=== PATIENT | female | born 1965 | race Caucasian/White ===

== ENCOUNTER → 2016-08-01 | Outpatient (CLI) | payer OTHER ==
[~2016-08-01] MED LIST: ALBUAER19 INH; AMPH20CA3 PO; AMPH20TA2 PO; ATV/2 PO; ATV1 PO; BSP15 PO; BUPR-267 PO; BUSP15TA70 PO; DOXY100C PO; EFFSR150 PO; EFFSR75 PO; FRCT/ PO; GABA1CAP PO; GABA1CAP4 PO; HYDR-5688 PO; IBUP-1459 PO; LEVO150T PO; LEVO175T3 PO; MELO15TA10 PO; MELO15TA4 PO; MONT1TAB3 PO; OMEP20CA9 PO; OMEP40CA41 PO; ONDA10SO PO; ONDA8TAB62 SL; OXYC1TAB3 PO; PRED20TA PO; PROM1SUP19 PR; SNG10 PO; VENL150C56 PO; VNTHFA/IN INH
--- NOTE | 2016-08-01 15:53 | DIAGNOSTIC IMAGING REPORT ---
CT SINUSES WITH BRAIN LAB CT DOSE: 730.34 mGy.cm CLINICAL HISTORY: CHRONIC SINUSITIS TECHNIQUE: Helical images were acquired in transverse plane. Coronal reformatted images were acquired. COMPARISON STUDY: 08/11/2015 FINDINGS: No orbital masses are visualized. There is no hydrocephalus. There is an 11 mm dural based calcification at the level the left posterior frontal lobe. There is progressive marked mucosal thickening involving the maxilla sinuses. There is extensive mucosal disease within the sphenoid sinus. The ethmoid cells are nearly completely opacified. There is partial opacification the frontal sinuses. The mastoid air cells appear clear. The ostiomeatal units are completely occluded bilaterally. IMPRESSION: Progressive pansinus disease. Occlusion of both ostiomeatal units. Electronically signed by: Carlos A Burns M.D. 08/01/2016 3:51 PM
== END | disposition home or self-care (01) ==
LOC: C.CTS 15:39
PROVIDERS: ATTEND Otolaryngology
DX: J32.9 Chronic sinusitis, unspecified (principal)

== ENCOUNTER 2016-08-11 19:38 | Emergency (ER) | payer OTHER ==
[~2016-08-11] VITALS: Ht 165.1 cm; Wt 73.9 kg
[~2016-08-11 19:38] MED LIST changes: -AMPH20TA2 PO; -ATV1 PO; -BSP15 PO; -DOXY100C PO; -EFFSR150 PO; -EFFSR75 PO; -FRCT/ PO; -GABA1CAP4 PO; -HYDR-5688 PO; -LEVO175T3 PO; -MELO15TA4 PO; -OMEP40CA41 PO; -ONDA10SO PO; -ONDA8TAB62 SL; -OXYC1TAB3 PO; -PRED20TA PO; -PROM1SUP19 PR; -SNG10 PO; -VNTHFA/IN INH
[2016-08-11 19:55] VITALS: TEMP 37.2; Ht 165.1 cm; Wt 73.9 kg
[2016-08-11] MEDS ORDERED: ALBUTEROL 0.083% NEBU SOLN 3 ML VIAL INH STA (20:51)
[2016-08-11] MEDS ORDERED: METHYLPREDNISOLONE 125 MG VIAL IV STA (20:51)
[2016-08-11] MEDS ORDERED: SODIUM CHLORIDE 0.9% 1000ML 1,000 ML IV STA (21:13)
[2016-08-11] MEDS ORDERED: KETOROLAC TROMETHAMINE 30 MG/ML VIAL IV STA (21:13)
[2016-08-11 21:15] LABS: BASO % 1.5 %; BASO ABS # 0.14 K/uL (0-0.2); COMPLETE YES; EOS % 7.3 %; HEMATOCRIT 43.4 % (37-47); IG% 0.2 %; LYMPH % 24.3 %; LYMPH ABS # 2.31 K/uL (1.2-3.4); MEAN CORPUSCULAR HEMOGLOBIN 30.2 pg (25-34); MEAN CORPUSCULAR HGB CONC 34.3 g/dl (32-36); MEAN PLATELET VOLUME 8.9 fL (7.4-10.4); MONO % 6.9 %; NEUT % 59.8 %; PLATELET COUNT 348 K/uL (130-400); RED BLOOD COUNT 4.93 M/uL (4.2-5.4); WHITE BLOOD COUNT 9.51 K/uL (4.8-10.8)
--- NOTE | 2016-08-11 21:21 | DIAGNOSTIC IMAGING REPORT ---
CHEST ONE VIEW PORTABLE CLINICAL HISTORY: Respiratory distress. Dyspnea. COMPARISON STUDY: 10/12/2015 FINDINGS: The heart is the upper limits of normal in size. There is evidence for aortic tortuosity/ectasia with a prominent ascending aortic shadow, unchanged from prior studies. There is no focal pulmonary consolidation. There is no failure. There are no pleural effusions.[ IMPRESSION: No significant change from the preceding study. No active disease in the chest. Electronically signed by: Carlos A Burns M.D. 08/11/2016 9:19 PM Dictated Date/Time: 08/11/2016 9:18 PM
[2016-08-11 21:31] VITALS: O2SAT 98
[2016-08-11 21:32] LABS: ALT/SGPT 29 U/L (12-78); BLOOD UREA NITROGEN 18 mg/dl (7-18); BUN/CREATININE RATIO 18.7 (10-20); CALCIUM 9.8 mg/dl (8.5-10.1); CARBON DIOXIDE 27 mmol/L (21-32); CHLORIDE 106 mmol/L (98-107); CREATININE 0.98 mg/dl (0.60-1.20); GLUCOSE 95 mg/dl (70-99); POTASSIUM 3.3 mmol/L (3.5-5.1); SODIUM 141 mmol/L (136-145)
[2016-08-11 21:37] LABS: ALB/GLOB RATIO 1.2 (0.9-2); ALKALINE PHOSPHATASE 65 U/L (45-117); AST/SGOT 25 U/L (15-37)
[2016-08-11 21:44] LABS: PREG INTERNAL NEGATIVE QC NEG CLEAR BACKGROUND; PREG INTERNAL POSITIVE QC POS CONTROL LINE
[2016-08-11] MEDS ORDERED: HYDROmorphone INJ 0.5 MG/0.5 ML SYR IV STA (21:57)
[2016-08-11 23:59] VITALS: BP 122/74; PULSE 62; O2SAT 100
--- NOTE | 2016-08-12 01:30 | EMERGENCY ROOM VISIT NOTE ---
History Report prepared by Jack: Celina Diaz Under the Supervision of: Dr. Phillip Charles D.O. First contact with patient: 20:34 Chief Complaint: RESPIRATORY PROBLEMS Stated Complaint: TROUBLE BREATHING,SHARP PAIN DEEP IN BTW SHOULDERS Nursing Triage Summary: Pt reports she is here due to increased fatigue and "deep back pain". "Today when I coughed I had a really sharp pain in my back that migrated to front, and everytime I take a deep breath I have that sharp pain again. I also have had a constant headache for two weeks. And there is a lot of pressure in my ears." Pt also reports neck pain. Scheduled to have surgery with Dr. Kang August 25. History of Present Illness The patient is a 50 year old female who presents to the Emergency Room with complaints of worsening respiratory problems for the past couple of days. She has had a productive cough with thick yellow sputum for the past month. She denies any worsening cough but states that 4 days ago she started experiencing sharp pain between her shoulder blades. This evening she coughed and since then has been having the sharp pain every time that she breathes. This pain radiates around into the right side of her chest. She rates her pain as an 8/10. Her chest pain has been constant for the past 2 hours. The patient reports increased shortness of breath. She has a history of asthma and states that her rescue inhaler has not been helping. She also notes a waxing and waning headache for the past month. She follows with Dr. Kang for her sinus problems. Three weeks ago she had a CT that revealed polyps in her sinuses and eustachian tube infections. She was given eardrops and antibiotics, which she finished 2 weeks ago. Pt denies change in vision, fevers, nausea, vomiting, diarrhea, pain with urination, melena, and pain or swelling in her legs. She denies any recent surgeries. She denies any personal history of cancer or blood clots. Source of History: patient Onset: a couple of days ago Position: chest (respiratory) Symptom Intensity: 8/10 Quality: sharp Timing: worsening Modifying Factors (Worsening): breathing, other (coughing) Associated Symptoms: + SOB, + back pain, + chest pain, + cough, + headache, No diarrhea, No fevers, No melena, No nausea, No urinary symptoms, No vomiting Review of Systems See HPI for pertinent positives & negatives. A total of 10 systems reviewed and were otherwise negative. Past Medical & Surgical Medical Problems: (1) ADHD (attention deficit hyperactivity disorder) (2) Anxiety (3) Asthma, intermittent (4) Chronic sinusitis (5) Depression (6) GERD (gastroesophageal reflux disease) (7) Hypothyroidism (8) ITP (idiopathic thrombocytopenic purpura) (9) Migraine (10) Seizure disorder, simple partial Surgical Problems: (1) History of back surgery (2) S/P sinus surgery (3) S/P tonsillectomy and adenoidectomy Family History Hypertension Social History Smoking Status: Former Smoker Alcohol Use: none Drug Use: none Marital Status: single, Housing Status: lives with family Occupation Status: employed Current/Historical Medications Scheduled Amphetamine-Dextroamphetamine 20MG (Adderall Xr 20MG), 20 MG PO BID Bupropion Hcl (Bupropion Hcl Er), 150 MG PO BID Buspirone Hcl (Buspar), 15 MG PO BID Levothyroxine Sodium (Synthroid), 150 MCG PO QAM Montelukast Sodium (Singulair), 10 MG PO QAM Venlafaxine Hcl (Effexor Extended Rel), 150 MG PO QAM Scheduled PRN Acetamin/Butalbital/Caffeine (Fioricet), 1-2 TAB PO UD PRN for Headache Albuterol Inhaler (Ventolin Inhaler), 2 PUFFS INH Q4H PRN for SOB/Wheezing Gabapentin (Neurontin), 100 MG PO TID PRN for back pain Ibuprofen (Motrin), 400 MG PO Q6H PRN for Pain Lorazepam (Ativan), 2 MG PO HS PRN for Sleep Meloxicam (Mobic), 15 MG PO DAILY PRN for Pain Omeprazole (Prilosec), 20 MG PO DAILY PRN for PRN Allergies Coded Allergies: Latex1 -Allergic Contact Dermititis (Verified Allergy, Unknown, 10/12/15) Ciprofloxacin (Verified Adverse Reaction, Unknown, N/V, DIZZINESS, 10/12/15 ) Morphine (Verified Adverse Reaction, Unknown, HEADACHES, 10/12/15) Oxycodone (Verified Adverse Reaction, Unknown, nausea and vomiting, ) Sulfamethoxazole w/Trimethoprim (Verified Adverse Reaction, Unknown, N/V, DIZZINESS, 10/12/15) Physical Exam Vital Signs Date Time Temp Pulse Resp B/P Pulse Ox O2 Delivery O2 Flow Rate FiO2 08/11/16 23:59 62 16 122/74 100 Room Air 08/11/16 22:07 65 16 113/72 100 Room Air 08/11/16 21:44 63 08/11/16 21:31 98 Room Air 08/11/16 20:25 100 Room Air 08/11/16 19:55 37.2 82 20 150/103 96 Room Air Physical Exam GENERAL: alert, sitting up in bed, well appearing, well nourished, no acute distress, non-toxic EYE EXAM: normal conjunctiva, PERRL and EOM's intact OROPHARYNX: no exudate, no erythema, lips, buccal mucosa, and tongue normal and mucous membranes are moist NECK: supple, acute reproducible tenderness in the bilateral cervical perispinal region, no nuchal rigidity, no adenopathy, negative Brudzinski's. LUNGS: Clear to auscultation. Normal chest wall mechanics HEART: no murmurs, S1 normal and S2 normal CHEST: No reproducible anterior chest wall tenderness. ABDOMEN: abdomen soft, non-tender, normo-active bowel sounds, no masses, no rebound or guarding. BACK: Back is symmetrical on inspection and there is no deformity, no midline tenderness, no CVA tenderness. SKIN: no rashes and no bruising UPPER EXTREMITIES: upper extremities are grossly normal. LOWER EXTREMITIES: No pitting edema. NEURO EXAM: Normal sensorium, cranial nerves II-XII intact, normal speech, no weakness of arms, no weakness of legs. No drift. Finger to nose intact. Gross sensation intact. Rapid alternating movements of the upper extremities are intact. Medical Decision & Procedures ER Provider Diagnostic Interpretation: Radiology results as stated below per my review and radiologist interpretation: CHEST ONE VIEW PORTABLE CLINICAL HISTORY: Respiratory distress. Dyspnea. COMPARISON STUDY: 10/12/2015 FINDINGS: The heart is the upper limits of normal in size. There is evidence for aortic tortuosity/ectasia with a prominent ascending aortic shadow, unchanged from prior studies. There is no focal pulmonary consolidation. There is no failure. There are no pleural effusions.[ IMPRESSION: No significant change from the preceding study. No active disease in the chest. Electronically signed by: Carlos A Burns M.D. 08/11/2016 9:19 PM Dictated Date/Time: 08/11/2016 9:18 PM Laboratory Results 08/11/16 21:00 Red Blood Count 4.93, Mean Corpuscular Volume 88.0, Mean Corpuscular Hemoglobin 30.2, Mean Corpuscular Hemoglobin Concent 34.3, Mean Platelet Volume 8.9, Neutrophils (%) (Auto) 59.8, Lymphocytes (%) (Auto) 24.3, Monocytes (%) (Auto) 6.9, Eosinophils (%) (Auto) 7.3, Basophils (%) (Auto) 1.5, Neutrophils # (Auto) 5.69, Lymphocytes # (Auto) 2.31, Monocytes # (Auto) 0.66, Eosinophils # (Auto) 0.69, Basophils # (Auto) 0.14 08/11/16 21:00 Test 08/11/16 21:00 08/11/16 21:17 08/11/16 22:53 White Blood Count 9.51 K/uL (4.8-10.8) Red Blood Count 4.93 M/uL (4.2-5.4) Hemoglobin 14.9 g/dL (12.0-16.0) Hematocrit 43.4 % (37-47) Mean Corpuscular Volume 88.0 fL (80-100) Mean Corpuscular Hemoglobin 30.2 pg (25-34) Mean Corpuscular Hemoglobin Concent 34.3 g/dl (32-36) Platelet Count 348 K/uL (130-400) Mean Platelet Volume 8.9 fL (7.4-10.4) Neutrophils (%) (Auto) 59.8 % Lymphocytes (%) (Auto) 24.3 % Monocytes (%) (Auto) 6.9 % Eosinophils (%) (Auto) 7.3 % Basophils (%) (Auto) 1.5 % Neutrophils # (Auto) 5.69 K/uL (1.4-6.5) Lymphocytes # (Auto) 2.31 K/uL (1.2-3.4) Monocytes # (Auto) 0.66 K/uL (0.11-0.59) Eosinophils # (Auto) 0.69 K/uL (0-0.5) Basophils # (Auto) 0.14 K/uL (0-0.2) RDW Standard Deviation 45.0 fL (36.4-46.3) RDW Coefficient of Variation 13.8 % (11.5-14.5) Immature Granulocyte % (Auto) 0.2 % Immature Granulocyte # (Auto) 0.02 K/uL (0.00-0.02) Prothrombin Time 11.0 SECONDS (9.0-12.0) Prothromb Time International Ratio 1.0 (0.9-1.1) Activated Partial Thromboplast Time 26.4 SECONDS (21.0-31.0) Partial Thromboplastin Ratio 1.0 D-Dimer < 190 ug/L FEU (0-500) Anion Gap 8.0 mmol/L (3-11) Est Creatinine Clear Calc Drug Dose 69.9 ml/min Estimated GFR () 78.5 Estimated GFR (Non- 67.7 BUN/Creatinine Ratio 18.7 (10-20) Calcium Level 9.8 mg/dl (8.5-10.1) Total Bilirubin 0.2 mg/dl (0.2-1) Aspartate Amino Transf (AST/SGOT) 25 U/L (15-37) Alanine Aminotransferase (ALT/SGPT) 29 U/L (12-78) Alkaline Phosphatase 65 U/L (45-117) Total Protein 7.1 gm/dl (6.4-8.2) Albumin 3.8 gm/dl (3.4-5.0) Globulin 3.3 gm/dl (2.5-4.0) Albumin/Globulin Ratio 1.2 (0.9-2) Human Chorionic Gonadotropin, Qual NEG (NEG) Influenza Type A Antigen Neg for Influ A (NEG) Influenza Type B Antigen Neg for Influ B (NEG) Troponin I < 0.015 ng/ml (0-0.045) Laboratory results per my review. Medications Administered Medications (Trade) Dose Ordered Sig/Jamarcus Route Start Time Stop Time Status Last Admin Dose Admin Albuterol Sulfate (Ventolin 0.083% 2.5MG/3ML [facility]) 2.5 mg NOW STAT INH 08/11/16 20:51 08/11/16 20:52 DC 08/11/16 21:20 2.5 MG Methylprednisolone Sodium Succinate (Solu-Medrol IV) 125 mg NOW STAT IV 08/11/16 20:51 08/11/16 20:52 DC 08/11/16 21:20 125 MG Ketorolac Tromethamine 30 mg 30 mg NOW STAT IV 08/11/16 21:13 08/11/16 21:14 DC 08/11/16 21:29 30 MG Sodium Chloride (Nss 1000ml) 1,000 ml @ 999 mls/hr Q1H1M STAT IV 08/11/16 21:13 08/11/16 22:13 DC 08/11/16 21:21 999 MLS/HR Hydromorphone HCl (Dilaudid Inj) 0.5 mg NOW STAT IV 08/11/16 21:57 08/11/16 22:00 DC 08/11/16 22:07 0.5 MG ECG Indication: chest pain Rate (beats per minute): 72 Rhythm: normal sinus Findings: left axis deviation, no ectopy ED Course ED COURSE: Vital signs were reviewed and showed normal vitals. The patients medical record was reviewed The above diagnostic studies were performed and reviewed. ED treatments and interventions as stated above. 2033: The patient was evaluated in room B8. A complete history and physical examination was performed. 2050: Solu-Medrol 125 mg IV, Albuterol sulfate 2.5 mg INH 3: NSS 1000 ml @ 999 mls/hr IV, Toradol 30 mg IV 7: Dilaudid 0.5 mg IV 5: I updated the patient on her results. 0: Upon reevaluation, the patient is feeling better and resting comfortably. I discussed my findings with the patient and she understands and agrees with the treatment plan. Based on the patients age, coexisting illnesses, exam and lab findings the decision to treat as an outpatient was made. The patient remained stable while under my care. The patient appeared well at the time of discharge. Medical Decision Differential diagnoses includes but is not limited to pneumonia, bronchitis, COPD/Asthma exacerbation, pneumothorax, pulmonary embolism, congestive heart failure, acute coronary syndrome. Patient is a 50-year-old female who presents the ER for right sided chest pain which is pleuritic in nature. She does not shortness of breath with it has a history of asthma. She is a low risk for PEs. Chest x-ray was unremarkable. D -dimer was negative. Troponin was negative 2. EKG was nondiagnostic. She is currently being treated for sinusitis with Dr. Kang. I do favor her headaches which have been waxing and waning for the past month are likely secondary to her sinus issues. I recommend following up with her ENT doctor tomorrow. I do not feel comfortable prescribing any additional antibiotics as this appears to be a chronic issue as don't want to cause any infectious diarrhea with antibiotics. She is completely neurologically intact. She declined CT of her head. She is discharged following IV Dilaudid and Toradol the follow-up with her primary care doctor. Discussed with Pt concerning signs and symptoms to watch out for. Pt was instructed to follow up with their PCP and discussed with the patient their option to return to the ED at anytime for persistent or worsening symptoms. The appropriate anticipatory guidance and out-patient management, including indications for return to the emergency department, were explained at length to the patient and understood. Impression Primary Impression: Chest pain Additional Impressions: Headache Hypokalemia Scribe Attestation The scribe's documentation has been prepared under my direction and personally reviewed by me in its entirety. I confirm that the note above accurately reflects all work, treatment, procedures, and medical decision making performed by me. Departure Information Dispostion Home / Self-Care Referrals No Doctor, Assigned (PCP) Eugene Dallas D.O. Forms HOME CARE DOCUMENTATION FORM, IMPORTANT VISIT INFORMATION, WORK / SCHOOL INSTRUCTIONS Patient Instructions ED Cephalgia Unspecified, My [facility] Additional Instructions Please follow up with your primary care doctor with in the next 24 hours. Any worsening of your symptoms, please return to the ED immediately. This includes exertional chest pain, chest pain when you're walking, shortness of breath, passing out, or any other concerning signs or symptoms from your stand point. Please take Motrin or Tylenol as needed for pain. Please do not drive, work, operate heavy machinery or drink Call for the next 12 hours. Problem Qualifiers Primary Impression: Chest pain Chest pain type: precordial chest pain Qualified Codes: R07.2 - Precordial pain Additional Impressions: Headache Headache type: unspecified
[2016-08-19] MEDS ORDERED: FRCT/ PO (13:03)
[2016-08-25] MEDS ORDERED: OXYC1TAB3 PO ×2 (09:00)
[2016-08-25] MEDS ORDERED: ONDA8TAB62 SL (10:54)
[2016-08-25] MEDS ORDERED: ONDA10SO PO (10:54)
== END 2016-08-11 23:58 | disposition home or self-care (01) ==
LOC: C.EDB 19:40
DX: R07.9 Chest pain, unspecified (principal); R51 Headache; E87.6 Hypokalemia; E03.9 Hypothyroidism, unspecified; F41.9 Anxiety disorder, unspecified; F90.9 Attention-deficit hyperactivity disorder, unspecified type; K21.9 Gastro-esophageal reflux disease without esophagitis; J45.909 Unspecified asthma, uncomplicated; G40.909 Epilepsy, unspecified, not intractable, without status epilepticus; Z98.890 Other specified postprocedural states; Z87.891 Personal history of nicotine dependence; Z79.899 Other long term (current) drug therapy; Z88.2 Allergy status to sulfonamides; Z88.5 Allergy status to narcotic agent; Z91.040 Latex allergy status; Z82.49 Family history of ischemic heart disease and other diseases of the circulatory system

== ENCOUNTER 2016-08-19 16:03 | Emergency (ER) | payer OTHER ==
[~2016-08-19] VITALS: Ht 165.1 cm; Wt 74.0 kg
[~2016-08-19 16:03] MED LIST changes: +FRCT/ PO
[2016-08-19 16:14] VITALS: Ht 165.1 cm; Wt 74.0 kg
[2016-08-19] MEDS ORDERED: ONDANSETRON INJ 2 MG/ML 2 ML VIAL IV STA (16:20)
[2016-08-19] MEDS ORDERED: CEFTRIAXONE SOD INJ 1 GM ADDVIAL IV STA (16:20)
[2016-08-19] MEDS ORDERED: DEXAMETHASONE SOD INJ 4 MG/ML VIAL IV STA (16:20)
[2016-08-19] MEDS ORDERED: SODIUM CHLORIDE 0.9% 1000ML 500 ML IV STA (16:20)
[2016-08-19] MEDS ORDERED: ALBUT/IPRATROP 3MG/0.5MG NEB 3 ML VIAL INH STA (16:20)
[2016-08-19] MEDS ORDERED: HYDROmorphone INJ 2 MG/ML SYR/VIAL IV PRN (16:30)
[2016-08-19] MEDS ORDERED: HYDROmorphone INJ 1 MG/ML SYR ONE (16:32)
--- NOTE | 2016-08-19 16:39 | EMERGENCY ROOM VISIT NOTE ---
History Report prepared by Jack: Vidya Sebastian Under the Supervision of: Dr. Nestor Wynne M.D. First contact with patient: 16:16 Chief Complaint: RESPIRATORY PROBLEMS Stated Complaint: SEVERE DIFFICULTY BREATHING, SEVERE PAIN IN CHEST History of Present Illness The patient is a 50 year old female who presents to the Emergency Room with complaints of worsening shortness of breath beginning 8 days prior to arrival. She states that she is experiencing right sided chest pain that she describes as a stabbing sensation. She notes that movement and coughing worsens the shortness of breath and pain. She notes yellow sputum with her cough. Patient states that she was in the ED 8 days ago for the same symptoms. She has been using her inhaler and nebulizer. The patient has a history of sinus surgeries and has one scheduled at the end of this month. The patient has a history of asthma. 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 Review of Systems See HPI for pertinent positives & negatives. A total of 10 systems reviewed and were otherwise negative. Past Medical & Surgical Medical Problems: (1) ADHD (attention deficit hyperactivity disorder) (2) Anxiety (3) Asthma, intermittent (4) Chronic sinusitis (5) Depression (6) GERD (gastroesophageal reflux disease) (7) Hypothyroidism (8) ITP (idiopathic thrombocytopenic purpura) (9) Migraine (10) Seizure disorder, simple partial Surgical Problems: (1) History of back surgery (2) S/P sinus surgery (3) S/P tonsillectomy and adenoidectomy Family History Hypertension Social History Smoking Status: Never Smoker Alcohol Use: none Drug Use: none Marital Status: single, Housing Status: lives with family Occupation Status: employed Current/Historical Medications Scheduled Amphetamine-Dextroamphetamine 20MG (Adderall 20MG), 20 MG PO BID Buspirone HCl (Buspirone HCl), 15 MG PO BID Doxycycline Hyclate (Vibramycin), 100 MG PO BID Levothyroxine Sodium (Levothyroxine Sodium), 175 MCG PO QAM Montelukast Sod (Montelukast Sodium), 10 MG PO HS Omeprazole (Prilosec), 40 MG PO BID Prednisone (Prednisone), 0 PO DAILY Venlafaxine Hcl (Effexor Extended Rel), 75 MG PO DAILY Venlafaxine Hcl (Effexor Extended Rel), 150 MG PO DAILY Scheduled PRN Acetamin/Butalbital/Caffeine (Fioricet), 1 TAB PO QID PRN for Headache Albuterol Hfa (Ventolin Hfa), 2 PUFFS INH Q6H PRN for Wheezing Gabapentin (Gabapentin), 300 MG PO TID PRN for Back Pain Hydrocodone/Acetaminophen 5MG/325MG ([place]anger 5MG/325MG), 1-2 TABLET PO Q4 PRN for Pain Lorazepam (Lorazepam), 1 MG PO BID PRN for Anxiety Meloxicam (Meloxicam), 15 MG PO DAILY PRN for Pain Promethazine (Phenergan Suppository), 25 MG [place] Q6H PRN for Migraine Allergies Coded Allergies: Latex1 -Allergic Contact Dermititis (Verified Allergy, Unknown, 10/12/15) Ciprofloxacin (Verified Adverse Reaction, Unknown, N/V, DIZZINESS, 10/12/15 ) Morphine (Verified Adverse Reaction, Unknown, HEADACHES, 10/12/15) Oxycodone (Verified Adverse Reaction, Unknown, nausea and vomiting, ) Sulfamethoxazole w/Trimethoprim (Verified Adverse Reaction, Unknown, N/V, DIZZINESS, 10/12/15) Physical Exam Vital Signs Date Time Temp Pulse Resp B/P Pulse Ox O2 Delivery O2 Flow Rate FiO2 08/19/16 19:19 37.0 80 18 131/86 97 08/19/16 19:08 80 18 131/86 97 Room Air 08/19/16 16:55 96 Room Air 08/19/16 16:14 37.0 105 18 124/84 96 Room Air Physical Exam GENERAL: Patient is in no acute distress. HEENT: No acute trauma, normocephalic atraumatic, mucous membranes moist, no nasal congestion, no scleral icterus. NECK: No stridor, no adenopathy, no meningismus, trachea is midline. LUNGS: Seems short of breath when speaking. Wheezing bilaterally, breath sounds equal bilaterally, breath sounds diminished bilaterally. HEART: Without murmurs gallops or rubs, regular rate and rhythm. CHEST: Tender to right anterior and lateral chest wall. No rash. ABDOMEN: Soft, nontender, bowel sounds positive, no hernias, no peritonitis. EXTREMITIES: No cyanosis or edema, full range of motion of all the joints without pain or difficulty, no signs for acute trauma. NEUROLOGIC: Oriented x 3, no acute motor or sensory deficits, no focal weakness. SKIN: No rash, no jaundice, no diaphoresis. Medical Decision & Procedures ER Provider Diagnostic Interpretation: CT results as stated below per my review and radiologist interpretation: CT ANGIOGRAM OF THE CHEST CLINICAL HISTORY: Atypical chest pain COMPARISON STUDY: Chest x-ray dated 08/11/2016 TECHNIQUE: Following the IV administration of 90 mL of Optiray-320, CT angiogram of the thorax was performed from the thoracic inlet to the lung bases utilizing the pulmonary embolus protocol. Images are reviewed in the axial, sagittal, and coronal planes. IV contrast was administered without complication. MIP imaging was performed. CT DOSE: 273.12 mGy.cm FINDINGS: No pathologically enlarged axillary mediastinal or hilar lymph nodes were visualized. There is mild dilatation of the ascending thoracic aorta which measures 42 mm in diameter. There are no intimal flaps to indicate aortic dissection. There were no pulmonary artery filling defects to indicate acute pulmonary embolism. No pleural effusions are visualized. There is mild bronchial wall thickening, and there is scattered bilateral mucous plugs. Clinical correlation regards to a bronchitis is recommended. IMPRESSION: 1. No CT evidence of acute pulmonary embolism 2. Mild dilatation of the ascending thoracic aorta, which measures 42 mm in diameter. There are no intimal flaps to indicate aortic dissection 3. Bronchial wall thickening and scattered mucous plugs Electronically signed by: Carlos A Burns M.D. 08/19/2016 6:49 PM Dictated Date/Time: 08/19/2016 6:45 PM Laboratory Results 08/19/16 16:58 Red Blood Count 5.22, Mean Corpuscular Volume 88.5, Mean Corpuscular Hemoglobin 30.7, Mean Corpuscular Hemoglobin Concent 34.6, Mean Platelet Volume 9.2, Neutrophils (%) (Auto) 52.0, Lymphocytes (%) (Auto) 24.8, Monocytes (%) (Auto) 7.9, Eosinophils (%) (Auto) 13.1, Basophils (%) (Auto) 1.9, Neutrophils # (Auto ) 4.62, Lymphocytes # (Auto) 2.20, Monocytes # (Auto) 0.70, Eosinophils # (Auto ) 1.16, Basophils # (Auto) 0.17 08/19/16 16:58 Test 08/19/16 16:58 08/19/16 17:00 White Blood Count 8.88 K/uL (4.8-10.8) Red Blood Count 5.22 M/uL (4.2-5.4) Hemoglobin 16.0 g/dL (12.0-16.0) Hematocrit 46.2 % (37-47) Mean Corpuscular Volume 88.5 fL (80-100) Mean Corpuscular Hemoglobin 30.7 pg (25-34) Mean Corpuscular Hemoglobin Concent 34.6 g/dl (32-36) Platelet Count 316 K/uL (130-400) Mean Platelet Volume 9.2 fL (7.4-10.4) Neutrophils (%) (Auto) 52.0 % Lymphocytes (%) (Auto) 24.8 % Monocytes (%) (Auto) 7.9 % Eosinophils (%) (Auto) 13.1 % Basophils (%) (Auto) 1.9 % Neutrophils # (Auto) 4.62 K/uL (1.4-6.5) Lymphocytes # (Auto) 2.20 K/uL (1.2-3.4) Monocytes # (Auto) 0.70 K/uL (0.11-0.59) Eosinophils # (Auto) 1.16 K/uL (0-0.5) Basophils # (Auto) 0.17 K/uL (0-0.2) RDW Standard Deviation 45.1 fL (36.4-46.3) RDW Coefficient of Variation 13.8 % (11.5-14.5) Immature Granulocyte % (Auto) 0.3 % Immature Granulocyte # (Auto) 0.03 K/uL (0.00-0.02) Anion Gap 10.0 mmol/L (3-11) Est Creatinine Clear Calc Drug Dose 69.9 ml/min Estimated GFR () 78.5 Estimated GFR (Non- 67.7 BUN/Creatinine Ratio 19.3 (10-20) Calcium Level 10.1 mg/dl (8.5-10.1) Troponin I < 0.015 ng/ml (0-0.045) Influenza Type A (RT-PCR) Neg for Influ A (NEG) Influenza Type B (RT-PCR) Neg for Influ B (NEG) Laboratory results reviewed by me. Medications Administered Medications (Trade) Dose Ordered Sig/Jamarcus Route Start Time Stop Time Status Last Admin Dose Admin Sodium Chloride (Nss 1000ml) 500 ml @ 999 mls/hr Q31M STAT IV 08/19/16 16:20 08/19/16 16:50 DC 08/19/16 16:54 999 MLS/HR Ondansetron HCl (Zofran Inj) 4 mg NOW STAT IV 08/19/16 16:20 08/19/16 16:27 DC 08/19/16 16:53 4 MG Dexamethasone Sodium Phosphate (Decadron Inj) 10 mg NOW STAT IV 08/19/16 16:20 08/19/16 16:27 DC 08/19/16 16:54 10 MG Albuterol/ Ipratropium (Duoneb) 3 ml NOW STAT INH 08/19/16 16:20 08/19/16 16:27 DC 08/19/16 16:54 3 ML Ceftriaxone Sodium (Rocephin Inj) 1 gm NOW STAT IV 08/19/16 16:20 08/19/16 16:27 DC 08/19/16 16:55 1 GM Hydromorphone HCl (Dilaudid Inj) 1 mg STK-MED ONCE .ROUTE 08/19/16 16:32 08/19/16 16:33 DC 08/19/16 16:53 1 MG ECG Indication: SOB/dyspnea Rate (beats per minute): 73 Rhythm: normal sinus Findings: no acute ischemic change, no ectopy, other (non specific T wave changes) ED Course 161: The patient was evaluated in room A4. A complete history and physical exam was performed. 1620: Rocephin Inj 1 gm IV, Duoneb 3 ml INH, Decadron Inj 10 mg IV, Zofran Inj 4 mg IV, Sodium Chloride 500 ml @ 999 mls/hr IV. 1630: Dilaudid Inj 1 mg IV. 1855: I reevaluated the patient. She is feeling much better and her breathing has improved. 1903: Reevaluated the patient. Discussed results and discharge instructions: She verbalized understanding and agreement. The patient is ready for discharge. Medical Decision The patient is a 50 year old female who presents to the ED with complaints of shortness of breath. Differential diagnoses considered include bronchitis, pneumonia, CHF, PE, rib fracture, musculoskeletal pain, exacerbation of asthma, influenza. There is no leukocytosis or concerning anemia. No significant electrolyte abnormality, no kidney failure. EKG shows a sinus rhythm, no acute ischemia, nonspecific T wave changes were noted. Cardiac enzyme testing times one is not suggestive of acute cardiac injury. Blood cultures are pending, influenza testing is pending. Chest CT shows some mucous plugs and what seems to be bronchitis, there was no pneumonia, no CHF and no evidence for PE. The patient presents with shortness of breath which has worsened even since her last ER visit. She did receive IV Decadron, IV ceftriaxone, IV saline. She was given a DuoNeb. She received IV Dilaudid for pain. She received IV Zofran for nausea. The patient feels markedly better, her lungs are much more clear. She is not hypoxic or toxic. I talked to her about admission versus discharge, she does want to go home. The patient is being discharged on doxycycline. I do think antibiotics are indicated given the length of her illness and her underlying asthma. She will be on a prednisone taper, Granger for pain. She will be using her nebulizer or inhaler every 4 hours. If she continues to feel worse and is not improving, she will return for reassessment. She appears to have acute bronchitis with an exacerbation of asthma. The chest pain seems musculoskeletal, it is reproducible on exam. [place] Drug Monitoring Program Search Results: patient reviewed within database, no issues identified Impression Primary Impression: Acute bronchitis Additional Impressions: Right-sided chest pain Exacerbation of asthma Scribe Attestation The scribe's documentation has been prepared under my direction and personally reviewed by me in its entirety. I confirm that the note above accurately reflects all work, treatment, procedures, and medical decision making performed by me. Departure Information Dispostion Home / Self-Care Prescriptions Prednisone (Prednisone) 20 Mg Tab 0 PO DAILY, #18 TAB 3 DAILY FOR 3 DAYS, THEN 2 DAILY FOR 3 DAYS, THEN 1 DAILY FOR 3 DAYS. Prov: Nestor Wynne M.D. 08/19/16 Doxycycline Hyclate (VIBRAMYCIN) 100 Mg Cap 100 MG PO BID for 10 Days, #20 CAP Prov: Nestor Wynne M.D. 08/19/16 Hydrocodone/Acetaminophen 5MG/325MG ([place]anger 5MG/325MG) Tab 1-2 TABLET PO Q4 Y for Pain, #15 TAB Prov: Nestor Wynne M.D. 08/19/16 Referrals Eugene Dallas D.O. (PCP) Forms HOME CARE DOCUMENTATION FORM, IMPORTANT VISIT INFORMATION Patient Instructions My [facility] Additional Instructions fluids rest albuterol inhaler or nebulizer every 4 hours prednisone taper as directed doxycycline 2x per day for 10 days norco 1-2 tab every 4 hours for pain otc laxatives to prevent constipation heat to the chest wall may help return if worsening and not improving Problem Qualifiers
[2016-08-19] MEDS ORDERED: OPTIRAY 320 IV PRN (16:45)
[2016-08-19 16:55] VITALS: O2SAT 96
[2016-08-19] MEDS ORDERED: PROM1SUP19 PR (17:16)
[2016-08-19] MEDS ORDERED: OMEP40CA41 PO (17:16)
[2016-08-19] MEDS ORDERED: GABA1CAP4 PO (17:16)
[2016-08-19] MEDS ORDERED: LEVO175T3 PO (17:16)
[2016-08-19] MEDS ORDERED: AMPH20TA2 PO (17:16)
[2016-08-19] MEDS ORDERED: MELO15TA4 PO (17:16)
[2016-08-19] MEDS ORDERED: SNG10 PO (17:16)
[2016-08-19] MEDS ORDERED: EFFSR150 PO (17:16)
[2016-08-19] MEDS ORDERED: ATV1 PO (17:16)
[2016-08-19] MEDS ORDERED: BSP15 PO (17:16)
[2016-08-19] MEDS ORDERED: VNTHFA/IN INH (17:16)
[2016-08-19] MEDS ORDERED: EFFSR75 PO (17:16)
[2016-08-19 17:25] LABS: BASO % 1.9 %; BASO ABS # 0.17 K/uL (0-0.2); COMPLETE YES; EOS % 13.1 %; HEMATOCRIT 46.2 % (37-47); IG% 0.3 %; LYMPH % 24.8 %; MEAN CELL VOLUME 88.5 fL (80-100); MEAN CORPUSCULAR HEMOGLOBIN 30.7 pg (25-34); MEAN CORPUSCULAR HGB CONC 34.6 g/dl (32-36); MEAN PLATELET VOLUME 9.2 fL (7.4-10.4); MONO % 7.9 %; PLATELET COUNT 316 K/uL (130-400); RED BLOOD COUNT 5.22 M/uL (4.2-5.4); WHITE BLOOD COUNT 8.88 K/uL (4.8-10.8)
[2016-08-19 17:43] LABS: BLOOD UREA NITROGEN 19 mg/dl (7-18); BUN/CREATININE RATIO 19.3 (10-20); CALCIUM 10.1 mg/dl (8.5-10.1); CARBON DIOXIDE 25 mmol/L (21-32); CHLORIDE 105 mmol/L (98-107); CREATININE 0.98 mg/dl (0.60-1.20); GLUCOSE 92 mg/dl (70-99); POTASSIUM 3.4 mmol/L (3.5-5.1); SODIUM 140 mmol/L (136-145)
--- NOTE | 2016-08-19 18:51 | DIAGNOSTIC IMAGING REPORT ---
CT ANGIOGRAM OF THE CHEST CLINICAL HISTORY: Atypical chest pain COMPARISON STUDY: Chest x-ray dated 08/11/2016 TECHNIQUE: Following the IV administration of 90 mL of Optiray-320, CT angiogram of the thorax was performed from the thoracic inlet to the lung bases utilizing the pulmonary embolus protocol. Images are reviewed in the axial, sagittal, and coronal planes. IV contrast was administered without complication. MIP imaging was performed. CT DOSE: 273.12 mGy.cm FINDINGS: No pathologically enlarged axillary mediastinal or hilar lymph nodes were visualized. There is mild dilatation of the ascending thoracic aorta which measures 42 mm in diameter. There are no intimal flaps to indicate aortic dissection. There were no pulmonary artery filling defects to indicate acute pulmonary embolism. No pleural effusions are visualized. There is mild bronchial wall thickening, and there is scattered bilateral mucous plugs. Clinical correlation regards to a bronchitis is recommended. IMPRESSION: 1. No CT evidence of acute pulmonary embolism 2. Mild dilatation of the ascending thoracic aorta, which measures 42 mm in diameter. There are no intimal flaps to indicate aortic dissection 3. Bronchial wall thickening and scattered mucous plugs Electronically signed by: Carlos A Burns M.D. 08/19/2016 6:49 PM Dictated Date/Time: 08/19/2016 6:45 PM
[2016-08-19] MEDS ORDERED: HYDR-5688 PO (19:06)
[2016-08-19] MEDS ORDERED: PRED20TA PO (19:06)
[2016-08-19] MEDS ORDERED: DOXY100C PO (19:06)
[2016-08-19 19:19] VITALS: BP 131/86; PULSE 80; TEMP 37; O2SAT 97
[2016-08-19 19:36] LABS: INFLUENZA A PCR Neg for Influ A (NEG); INFLUENZA B PCR Neg for Influ B (NEG)
[2016-08-25] MEDS ORDERED: OXYC1TAB3 PO ×2 (09:00)
[2016-08-25] MEDS ORDERED: ONDA8TAB62 SL (10:54)
[2016-08-25] MEDS ORDERED: ONDA10SO PO (10:54)
== END 2016-08-19 19:20 | disposition home or self-care (01) ==
LOC: C.EDB 16:04 → C.EDA 19:20
DX: J45.901 Unspecified asthma with (acute) exacerbation (principal); J20.9 Acute bronchitis, unspecified; R07.9 Chest pain, unspecified; E03.9 Hypothyroidism, unspecified; K21.9 Gastro-esophageal reflux disease without esophagitis; F90.9 Attention-deficit hyperactivity disorder, unspecified type; F41.9 Anxiety disorder, unspecified; F32.9 Major depressive disorder, single episode, unspecified; G40.909 Epilepsy, unspecified, not intractable, without status epilepticus; Z79.899 Other long term (current) drug therapy; Z88.2 Allergy status to sulfonamides; Z88.5 Allergy status to narcotic agent; Z91.040 Latex allergy status; Z82.49 Family history of ischemic heart disease and other diseases of the circulatory system

== ENCOUNTER → 2016-08-25 | Day surgery (SDC) | payer OTHER ==
[2016-08-22 09:59] VITALS: Ht 165.1 cm; Wt 63.6 kg
--- NOTE | 2016-08-24 12:44 | History and Physical: Surg Cnt ---
History & Physical Date Aug 24, 2016. Chief Complaint nasal polyposis/sinusitis History of Present Illness The patient is a 50 year old female with complaints of Past Medical/Surgical History Medical Problems: (1) ADHD (attention deficit hyperactivity disorder) (2) Anxiety (3) Asthma, intermittent (4) Chronic sinusitis (5) Depression (6) GERD (gastroesophageal reflux disease) (7) Hypothyroidism (8) ITP (idiopathic thrombocytopenic purpura) (9) Migraine (10) Seizure disorder, simple partial Surgical Problems: (1) History of back surgery (2) S/P sinus surgery (3) S/P tonsillectomy and adenoidectomy Additional History Hepatic Disease: No Endocrine Disorder: No Kidney Disease: No Hypertension: No Heart Disease: No Bleeding Tendencies: No Infectious Diseases: Yes Allergies Coded Allergies: Latex1 -Allergic Contact Dermititis (Verified Allergy, Unknown, 08/22/16) Ciprofloxacin (Verified Adverse Reaction, Unknown, N/V, DIZZINESS, 08/22/16 ) Morphine (Verified Adverse Reaction, Unknown, HEADACHES, 08/22/16) Oxycodone (Verified Adverse Reaction, Unknown, nausea and vomiting, ) Sulfamethoxazole w/Trimethoprim (Verified Adverse Reaction, Unknown, N/V, DIZZINESS, 08/22/16) Home Medications Scheduled Amphetamine-Dextroamphetamine 20MG (Adderall 20MG), 20 MG PO BID Buspirone HCl (Buspirone HCl), 15 MG PO BID Levothyroxine Sodium (Levothyroxine Sodium), 175 MCG PO QAM Montelukast Sod (Montelukast Sodium), 10 MG PO HS Omeprazole (Prilosec), 40 MG PO BID Venlafaxine Hcl (Effexor Extended Rel), 75 MG PO QAM Venlafaxine Hcl (Effexor Extended Rel), 150 MG PO QAM Scheduled PRN Acetamin/Butalbital/Caffeine (Fioricet), 1 TAB PO QID PRN for Headache Albuterol Hfa (Ventolin Hfa), 2 PUFFS INH Q6H PRN for Wheezing Gabapentin (Gabapentin), 300 MG PO TID PRN for Back Pain Lorazepam (Lorazepam), 1 MG PO BID PRN for Anxiety Meloxicam (Meloxicam), 15 MG PO DAILY PRN for Pain Promethazine (Phenergan Suppository), 25 MG [place] Q6H PRN for Migraine Diagnosis chronic sinusitis/polyposis Plan of Treatment endoscopic sinus surgery
[~2016-08-25] VITALS: Ht 165.1 cm; Wt 63.6 kg
[~2016-08-25] MED LIST changes: -ALBUAER19 INH; -AMPH20CA3 PO; +AMPH20TA2 PO; +ATROPINE SULFATE 0.1 MG/ML 5ML SYR IV PRN; -ATV/2 PO; +ATV1 PO; +BACITRACIN OINT 15 GM TUBE ONE; +BSP15 PO; -BUPR-267 PO; -BUSP15TA70 PO; +CEFAZOLIN 1000MG/55 ML D5W IV SCH; +CHECK SCOPOLAMINE PATCH PLACEMENT SCH; +DEXAMETHASONE SOD INJ 4 MG/ML VIAL ONE; +EFFSR150 PO; +EFFSR75 PO; +EpHEDrine SULFATE INJ 50 MG/ML AMP IV PRN; +EpINEphrine INJ 1MG/ML AMP 1 MG/ML AMP ONE; +FENTANYL CITRATE INJ 50 MCG/1 ML 2 ML VIAL ONE; +FLUMAZENIL 0.1 MG/1 ML 10 ML VIAL IV PRN; -GABA1CAP PO; +GABA1CAP4 PO; +GLYCOPYRROLATE INJ 0.2 MG/ML VIAL ONE; -IBUP-1459 PO; +LABETALOL HCL IV 5 MG/ML 20ML IV PRN; +LACTATED RINGER'S 1000ML 1,000 ML IV SCH; -LEVO150T PO; +LEVO175T3 PO; +LIDO 2%/EPINEPHRINE 1:100000 20 ML VIAL INFIL ONE; +LIDOCAINE 4% MPF SOAK 5 ML = 1 DOSE TOP ONE; +LIDOCAINE HCL 2% 2 ML VIAL (20MG/ML) ONE; -MELO15TA10 PO; +MELO15TA4 PO; +MEPERIDINE HCL 25 MG/ML CARP IV PRN; +MIDAZOLAM HCL 1 MG/ML 2ML VIAL ONE; -MONT1TAB3 PO; +NALOXONE HCL 0.4 MG/1 ML VIAL/CARP IV PRN; +NEOSTIGMINE METHYLSULFATE 5 MG/5 ML SYR ONE; +NURSING VERBAL MED ORDER ONE; -OMEP20CA9 PO; +OMEP40CA41 PO; +ONDA10SO PO; +ONDA8TAB62 SL; +ONDANSETRON INJ 2 MG/ML 2 ML VIAL IV PRN; +ONDANSETRON INJ 2 MG/ML 2 ML VIAL ONE; +OXYC1TAB3 PO; +OXYCODONE HCL IR 5 MG TAB (IMMEDIATE RELEASE) ONE; +OXYMETAZOLINE HCL 0.05% NA SPR 15 ML BTL SCH; +PHENYLEPHRINE 100MCG/ML 5ML SYR IV PRN; +PROM1SUP19 PR; +PROPOFOL IV EMULSION 10 MG/ML 20 ML VIAL IV ONE; +SCOPOLAMINE 1.5 MG TDSY TD ONE; +SCOPOLAMINE 1.5 MG TDSY TD SCH; +SNG10 PO; +SODIUM CHLORIDE 0.9% 1000ML 1,000 ML IV SCH; -VENL150C56 PO; +VNTHFA/IN INH
--- NOTE | 2016-08-25 06:47 | History & Physical Bridge Note ---
H&P Re-Evaluation Bridge Note: I have examined the patient, reviewed the History & Physical and in the interval since the performance of the History & Physical I have noted the following changes of clinical significance: No changes noted
[2016-08-25] MEDS: FENTANYL CITRATE INJ 50 MCG/1 ML 2 ML VIAL IV PRN ×4 (08:59→09:23)
--- NOTE | 2016-08-25 09:01 | Discharge Instructions-SurgCtr ---
Discharge Instructions Visit Reason for Visit: Chronic Sinusitis Discharge Discharge Diagnosis / Problem: same Discharge Goals Goal(s): Improve function Medications Stopped Medications Name(s): blood thinnners stopped 2 weeks ago. Activity Recommendations Activity Limitations: resume your previous activity Anesthesia . Post Anesthesia Instructions: If you have had General Anesthesia or IV Sedation: * Do not drive today. * Resume driving when surgeon permits. * Do not make important decisions or sign legal documents today. * Call surgeon for: 1. Temperature elevations greater than 101 degrees F. 2. Uncontrollable pain. 3. Excessive bleeding. 4. Persistent nausea and vomiting. 5. Medication intolerance (nausea, vomiting or rash). * For nausea and vomiting use only clear liquids such as: tea, soda, bouillon until nausea subsides, then gradually increase diet as tolerated. * If you have any concerns or questions, call your surgeon's office. If physician is unavailable and it is an emergency, call 911 or go to the nearest emergency room. . Diet Recommendations Home Diet: no limitations Procedures Procedures Performed: Endoscopic Sinus Surgery, Right and Left Frontal, Right and Left Maxillary, Right and Left Sphenoid, Total Ethmoidal Sinusotomies, Balloon Eustachian Tubes Pending Studies Studies pending at discharge: no Medical Emergencies . Who to Call and When: Medical Emergencies: If at any time you feel your situation is an emergency, please call 911 immediately. . Non-Emergent Contact Non-Emergency issues call your: Primary Care Provider . . "Provider Documentation" section prepared by Ria Kang. [place] Drug Monitoring Program Search Results: no issues identified
--- NOTE | 2016-08-25 09:17 | OPERATIVE REPORT ---
DATE OF OPERATION: 08/25/2016 PREOPERATIVE DIAGNOSIS: Chronic sinusitis, polyposis and eustachian tube dysfunction. POSTOPERATIVE DIAGNOSIS: Same. PROCEDURE: Right and left frontal, right and left sphenoid, right and left total ethmoid and right and left maxillary sinus antrostomies with dilation of eustachian tubes. SURGEON: Dr. Kang. ANESTHESIA: General endotracheal. COMPLICATIONS: None. BLOOD LOSS: 50 mL. HISTORY OF PRESENT ILLNESS: This 50-year-old lady presented with significant history of recurrent chronic sinusitis, had polyposis, had surgery by me previously but again has recurrence of polyposis and also complains of eustachian tube dysfunction with bilateral blocked ears. OPERATION AND FINDINGS: DESCRIPTION OF PROCEDURE: The patient brought to the operating room and placed in supine position. General endotracheal anesthesia was induced, prepped, draped in usual sterile manner. The nose was decongested using cottonoids with a solution of 4 mL of 4% Xylocaine mixed with 1 mL of epinephrine. Injection of 1% Xylocaine with 1:100,000 strength epinephrine was also used. The [employer] device was calibrated and used for the entire procedure. The right sphenoid was cannulated with guidewire and dilated using the 6 mm balloon as was the left sphenoid. The left sphenoid was filled with purulent material and had to be irrigated clean. The right maxillary sinus cannulated with guidewire and dilated using the 6 mm balloon as was the left maxillary sinus. At this point, the right nasofrontal duct was cannulated with guidewire with BrainLAB computer guidance and dilated using the 6 mm balloon. The guidewire was left in place as a marker. The shaver was coupled with the BrainLAB device. Frontal sinusotomy was performed by removing the residual agger nasi cell along with polyps by removing all the residual polyps in the residual ethmoid air cells anteriorly and posteriorly and then finding the maxillary ostia with the seeker and then opening up the maxillary ostia slightly posteriorly using the shaver removing polypoid mucosa at the posterior border and then finding the sphenoid with the BrainLAB device and then coupled with the shaver and then opening up the sphenoid by removing the polypoid portion of the inferior border of the superior turbinate and then opening up the sphenoid ostia. The frontal sinus was recannulated with the balloon and redilated and then irrigated clean with saline and the balloon was withdrawn. The left frontal sinusotomy, sphenoidotomy, total ethmoidectomy, and maxillary sinus antrostomy performed in similar manner. The eustachian tubes were dilated with the same balloon without the wire and dilated for 1 minute on each side. The patient tolerated the procedure well and was taken to recovery area in satisfactory condition. I attest to the content of the Intraoperative Record and any orders documented therein. Any exceptio ns are noted below.
[2016-08-25 09:45] VITALS: TEMP 36.9
--- NOTE | 2016-08-25 09:51 | Anesthesia Progress Nt - [facility] ---
Anesthesia Post Op Note Date & Time Aug 25, 2016 at 09:50 Vital Signs Pain Intensity: 3 Vital Signs Past 12 Hours Date Time Temp Pulse Resp B/P Pulse Ox O2 Delivery O2 Flow Rate FiO2 08/25/16 09:37 70 12 95 08/25/16 09:37 71 12 08/25/16 09:33 134/86 08/25/16 09:33 37.2 74 16 134/86 95 Room Air 08/25/16 09:31 66 16 93 08/25/16 09:31 79 19 95 08/25/16 09:28 131/84 08/25/16 09:23 134/82 08/25/16 09:21 70 14 08/25/16 09:21 70 14 94 08/25/16 09:18 127/87 08/25/16 09:16 68 13 95 08/25/16 09:16 72 15 94 08/25/16 09:15 138/85 08/25/16 09:14 71 15 95 08/25/16 09:14 68 12 96 08/25/16 09:09 70 13 98 08/25/16 09:09 70 13 08/25/16 09:08 139/81 08/25/16 09:04 68 13 08/25/16 09:04 68 13 100 08/25/16 09:03 139/82 08/25/16 08:59 71 16 100 08/25/16 08:59 72 17 100 08/25/16 08:58 133/82 08/25/16 08:53 140/78 08/25/16 08:49 37.0 84 22 125/86 100 Humidified Oxygen 6 Diffusion Mask 08/25/16 08:49 81 08/25/16 08:49 81 100 08/25/16 06:21 36.3 68 16 166/94 99 Room Air Notes Mental Status: alert / awake / arousable, participated in evaluation Pt Amnestic to Procedure: Yes Nausea / Vomiting: adequately controlled Pain: adequately controlled Airway Patency, RR, SpO2: stable & adequate BP & HR: stable & adequate Hydration State: stable & adequate Anesthetic Complications: no major complications apparent
[2016-08-25 10:50] VITALS: BP 134/71; PULSE 73; O2SAT 96
--- NOTE | 2016-08-25 11:03 | Discharge Instructions-SurgCtr ---
Discharge Instructions Visit Reason for Visit: Chronic Sinusitis Medications Stopped Medications Name(s): blood thinnners stopped 2 weeks ago. Anesthesia . Post Anesthesia Instructions: If you have had General Anesthesia or IV Sedation: * Do not drive today. * Resume driving when surgeon permits. * Do not make important decisions or sign legal documents today. * Call surgeon for: 1. Temperature elevations greater than 101 degrees F. 2. Uncontrollable pain. 3. Excessive bleeding. 4. Persistent nausea and vomiting. 5. Medication intolerance (nausea, vomiting or rash). * For nausea and vomiting use only clear liquids such as: tea, soda, bouillon until nausea subsides, then gradually increase diet as tolerated. * If you have any concerns or questions, call your surgeon's office. If physician is unavailable and it is an emergency, call 911 or go to the nearest emergency room. . Instructions / Follow-Up Instructions / Follow-Up ACTIVITY RECOMMENDATIONS: * Being up and around is good, but no strenuous activity, heavy lifting or physical exertion for one week. * Keep your head elevated 30 degrees when lying down or sleeping. * Do not blow your nose for 48 hours, sniff back instead. * Avoid hot showers. OVER THE COUNTER MEDICATIONS: * You may use Tylenol * Avoid aspirin or aspirin containing products, e.g. as they may increase bleeding. SPECIAL CARE INSTRUCTIONS: * Expect to have bloody drainage from your nose and/or down your throat for one to three days. Change drip pad as needed. * Begin irrigating your nose with saline solution today, at least six to ten times per day and sniff back to help remove old clots or crust. * You may experience nasal and facial congestion, pain and pressure, this is normal. * Please call with any significant and/or progressive pain, redness, swelling around the eyes, visual changes, fever of 101.5 degrees F, active bleeding or any problems or concerns. * If active bleeding occurs, spray the nose three times at one minute intervals with Afrin spray and call or cell phone: . If unable to reach the doctor, go to the nearest Emergency Department. Special Diet: * Avoid extremely hot fluids. FOLLOW UP VISIT: Follow-up Visit with Dr. Kang If not already scheduled, please call to schedule. Procedures Procedures Performed: Endoscopic Sinus Surgery, Right and Left Frontal, Right and Left Maxillary, Right and Left Sphenoid, Total Ethmoidal Sinusotomies, Balloon Eustachian Tubes Medical Emergencies . Who to Call and When: Medical Emergencies: If at any time you feel your situation is an emergency, please call 911 immediately. . Non-Emergent Contact . . "Provider Documentation" section prepared by Ria Kang.
== END | disposition home or self-care (01) ==
LOC: X.SURG 06:10
PROVIDERS: ATTEND Otolaryngology
DX: J32.9 Chronic sinusitis, unspecified (principal); J33.9 Nasal polyp, unspecified; H69.83 Other specified disorders of Eustachian tube, bilateral; J45.909 Unspecified asthma, uncomplicated; F41.9 Anxiety disorder, unspecified; F90.9 Attention-deficit hyperactivity disorder, unspecified type; F32.9 Major depressive disorder, single episode, unspecified; K21.9 Gastro-esophageal reflux disease without esophagitis; E03.9 Hypothyroidism, unspecified; Z98.890 Other specified postprocedural states

== ENCOUNTER 2019-05-16 08:39 | Inpatient (IN) ==
--- NOTE | 2019-05-16 09:12 | Emergency Department Note ---
ED Provider Note CHIEF COMPLAINT: Facial swelling and pain HISTORY OF PRESENTING ILLNESS: This is a 53-year-old female who presents to the emergency department by private vehicle with complaint of right-sided facial pain and swelling. Patient reports that she was here yesterday for the same symptoms and was diagnosed with an outer ear infection and parotitis. She has been taking Augmentin without improvement, she reports she has had 3 doses. She states that she was also to get Ciprodex eardrops for the ear infection, but she states they were over $200 and she was unable to afford this. She reports that the pain and swelling have gotten significantly worse since yesterday, she states that the facial swelling is at least twice the size it was yesterday. She denies any difficulty swallowing or breathing. She has had some subjective chills, but denies any known fever. She states all of her symptoms started about 3 days ago with a right earache but has gotten progressively worse. There has been foul-smelling drainage from the right ear and she cannot hear out of the ear because of the swelling. She denies any previous history of ear probl ems. Patient does note that she developed a scab on her right cheek yesterday, she states she picked this off this morning and was squeezing the area trying to drain it, she states no pus came out, only bloody drainage. REVIEW OF SYSTEMS: A complete 10 point review of systems was reviewed with the patient with pertinent positives and negatives as per history of present illness. All else were negative. PAST MEDICAL HISTORY: Hypothyroidism, GERD, ITP, asthma, ADHD, migraine headaches, depression, anxiety, history of multiple sinus surgeries and tonsillectomy/adenoidectomy SOCIAL HISTORY: Lives at home with family, she is a current everyday smoker ALLERGIES: Reviewed in the chart and with the patient PHYSICAL EXAM: CONSTITUTIONAL: Pleasant and cooperative. Nontoxic-appearing and in no acute distress, but appears uncomfortable from pain. Moderately dehydrated. HEENT: Normocephalic, atraumatic. PERRL, EOMI. The pharynx is normal in appearance and the tonsils are not enlarged. The airway is patent. There are no exudates over the tonsils. The right external auditory canal is si gnificantly swollen and inflamed and there is positive tragal swelling and tenderness. The tympanic membrane not visualized. The left tympanic membrane is pearly lopez without erythema or bulging and the external auditory canal is clear. Dry mucous membranes. Airway patent. FACE: There is moderate swelling and erythema of the right face extending to the submandibular region, exquisitely tender to palpation. There is a superficial open wound on the right cheek with no visible active drainage or bleeding. No edema or tenderness of the mouth floor. NECK: Supple, full active range of motion without discomfort. Right-sided submandibular and cervical adenopathy, tender to palpation. RESPIRATORY: Clear to auscultation bilaterally with no wheezing, crackles, rhonchi or stridor. Equal expansion bilaterally. CARDIOVASCULAR: Regular rate and rhythm with no murmurs, rubs or gallops. Normal peripheral perfusion. No edema. GASTROINTESTINAL: Soft, nontender, nondistended. No palpable masses or HSM. Bowel sounds present in all quadrants. MUSCULOSKELETAL: Full range of motion of all joints without discomfort. INTEGUMENTARY: No rash or other significant dermatologic conditions noted. NEUROLOGIC: Alert and oriented X 4 with normal affect. Normal strength and sensation in all 4 extremities. Normal speech. Normal gait observed. ED COURSE AND MEDICAL DECISION MAKING: CC: Patient presenting with complaint of right ear and facial pain and swelling DIFFERENTIAL DIAGNOSIS: Includes, but not limited to otitis externa, otitis media, mastoiditis, facial cellulitis, abscess, parotitis, Ahsan's angina, mumps, among others. INTERPRETATION OF LABS: Leukocytosis with left shift, no anemia, normal platelets, no significant electrolyte abnormalities, normal renal function, normal liver enzymes. IMAGING: CT soft tissue neck w con HISTORY: 53 years-old Female right otitis externa, facial and neck swelling acute right-sided facial and neck pain with soft tissue swelling COMPARISON: CTA of the neck 01/02/2015 TECHNIQUE: Multiple axial CT images of the soft tissues of the neck were obtained following the intravenous administration of 93 mL Optiray 320 IV contrast. A dose lowering technique was used consistent with the principals of ALARA. FINDINGS: There is moderate subcutaneous edema about the lateral right cheek centered about the right parotid gland and extending into the right external auditory canal distribution. Heterogeneous enhancement of the right parotid gland with multiple prominent likely reactive lymph nodes adjacent to the right parotid to 5 mm. Prominent 8 mm level 1 lymph node on image 261 series 3 is also likely reactive. There is no drainable fluid collection. No focal soft tissue mass identified. Mild edema tracks along the right platysma myofascial margin. Unremarkable appearance of the bilateral submandibular and sublingual glands. Prominence of the lingual tonsils with secretions noted within the vallecula. The vascular structures of the neck appear unremarkable. No pneumothorax. Lung apices are generally clear. Severe mixed attenuating secretions are noted about the nasal turbinates, ethmoid air cells, right frontal and bilateral maxillary sinuses with moderate mucosal thickening of the sphenoid sinuses. The mastoid air cells are clear. Trace fluid noted within the right middle ear cavity. Mild level degenerative changes of the cervical spine. IMPRESSION: 1. Moderate subcutaneous and deep tissue edema of the right lateral cheek centered about the right parotid gland extending into the external auditory canal distribution. Findings are suggestive of acute parotiditis with associated otitis externa. No drainable fluid collection or discrete soft tissue mass. 2. Mild reactive adenopathy. 3. Trace fluid of the right middle ear cavity. Correlate clinically to exclude associated otitis media. 4. Marked secretions noted involving the nasopharynx with severe paranasal sinus disease as above. MEDICATION RECONCILIATION: I attest that I have personally reviewed the patient's current medication list. INITIAL VITAL SIGNS REVIEW: I reviewed the patient's initial vital signs and interpret them as follows: T: Afebrile; BP: Mildly hypertensive; HR: Mildly tachycardic; RR: Within normal limits; Pulse Ox: Within normal limits on room air. Blood pressure screening: The patient was found to have an elevated blood pressure, which was felt to be situational. MDM SUMMARY: Patient was evaluated at bedside, history and physical exam performed. Patient is alert and oriented, no acute distress, resting calmly in the stret prem. She is afebrile and nontoxic-appearing. There is mild right-sided facial swelling extending down to the submandibular region, tender to palpation. The right ear is swollen, significant chills tenderness, and the canal is occluded with swelling and purulent drainage, unable to visualize the TM. Patient reports that she is fully vaccinated against mumps and denies any exposure to anyone with symptoms concerning for mumps. Her symptoms did seem to arise from her otitis externa and I feel that mumps is less likely. Orders were placed at bedside for labs, IV fluids for hydration, IV Toradol for pain, IV Unasyn to treat facial infection, CT soft tissue neck with contrast to evaluate for facial cellulitis. Patient discussed with Dr. Dean, who agrees with my assessment, plan, and disposition. Nursing staff notes that the patient is still having some pain after the Toradol, she is requesting Dilaudid which she states she has tolerated in the past. 0.5 mg IV Dilaudid ordered for the patient's pain. Labs and imaging reviewed as above, labs notable for leukocytosis. CT imaging shows moderate subcutaneous and deep tissue edema consistent with cellulitis, as well as right-sided otitis externa and parotitis, but no drainable abscess. A wick was easily placed in the right ear canal and Ciprodex otic suspension for drops were placed in the right ear. Patient reassessed multiple times throughout ED stay, she has remained hemodynamically stable and afebrile, and reports that her pain is improved after the Toradol and Dilaudid. Given the patient's persistent worsening facial cellulitis in spite of 3 doses of Augmentin, I feel that she warrants a hospital stay for further IV an tibiotics and close observation. The patient was updated on all results and plan for further hospital stay, she verbalized understanding and was agreeable to this plan. Spoke on the phone with Jayashree Landers PA-C with the hospitalist team, who agrees to evaluate the patient. Patient was stable at time of admission. The chart was completed utilizing [employer] Speech voice recognition software. Grammatical errors, random word insertions, pronoun errors, and incomplete sentences are an occasional consequence of this system due to software limitations, ambient noise, and hardware issues. Any formal questions or concerns about the content, text, or information contained within the body of this dictation should be directly addressed to the nurse practitioner for clarification. Impression & Plan Acute parotitis, Otitis externa, Cellulitis of face, Leukocytosis Past Med/Surg History Medical History Tobacco use (Chronic) Now vaping Migraine (Chronic) ADHD (attention deficit hyperactivity disorder) (Chronic) Depression (Chronic) Asthma, intermittent (Chronic) ITP (idiopathic thrombocytopenic purpura) (Chronic) GERD (gastroesophageal reflux disease) (Chronic) Seizure disorder, simple partial (Chronic) Hypothyroidism (Chronic) Anxiety (Chronic) Chronic sinusitis (Chronic) Surgical History S/P tonsillectomy and adenoidectomy (Chronic) S/P sinus surgery (Chronic) History of back surgery (Chronic) Family History Other Asthma No significant family history Thyroid disorder Social History Preferred Language: Cambodian Communication Ability: Effective Product Technician Required: No Beliefs That Will Affect Care: None Current Living Situation: Significant Other Other Information That Helps Us Care for You: No Feels Safe at Home: Yes Safety Concerns: Feels Safe At This Time Smoking Status: Current every day smoker Tobacco Type: e-cigarettes ; Cigarettes Per Day: VAPES ; Hx Alcohol Use: No Hx Substance Use: No Results & Data Vital Signs Vital Signs - 24 hr 05/16/19 08:43 05/16/19 10:24 05/16/19 11:45 Temperature 36.7 C Temperature Source Oral Sepsis Recent Fever Within 48 Hours No Sepsis Action Taken by Nursing No Action Required Pulse Rate 92 H Pulse Rate [Right Finger] 78 Respiratory Rate 18 20 20 Respiratory Effort / Characteristics Non-Labored Spontaneous Non-Labored Non-Labored Respiratory Depth Normal Normal Normal Blood Pressure 137/91 Blood Pressure [Right Arm] 134/90 115/82 Blood Pressure Mean 106 Blood Pressure Mean [Right Arm] 104 93 Blood Pressure Position Sitting Pulse Oximetry 100 99 98 Oxygen Delivery Method Room Air Room Air Room Air Laboratory Data Result diagrams: 05/16/19 09:20 05/16/19 09:20 Lab Results 05/16/19 05/16/19 Range/Units 09:20 09:20 WBC 14.48 H (4.8-10.8) K/uL RBC 4.94 (4.2-5.4) M/uL Hgb 14.4 (12.0-16.0) g/dL Hct 43.9 (37-47) % MCV 88.9 (80-100) fL MCH 29.1 (25-34) pg MCHC 32.8 (32-36) g/dL RDW Std Deviation 42.7 (36.4-46.3) fL RDW Coeff of Johanna 13.1 (11.5-14.5) % Plt Count 282 (130-400) K/uL MPV 9.2 (7.4-10.4) fL Immature Gran % (Auto) 0.3 % Neut % (Auto) 73.8 % Lymph % (Auto) 12.8 % [place] % (Auto) 8.4 % Eos % (Auto) 4.4 % Baso % (Auto) 0.3 % Immature Gran # (Auto) 0.04 H (0.00-0.02) K/uL Neut # (Auto) 10.70 H (1.4-6.5) K/uL Lymph # (Auto) 1.85 (1.2-3.4) K/uL [place] # (Auto) 1.21 H (0.11-0.59) K/uL Eos # (Auto) 0.64 H (0-0.5) K/uL Baso # (Auto) 0.04 (0-0.2) K/uL Sodium 136 (136-145) mmol/L Potassium 4.2 (3.5-5.1) mmol/L Chloride 101 (98-107) mmol/L Carbon Dioxide 31 (21-32) mmol/L Anion Gap 4.0 (3-11) BUN 15 (7-18) mg/dl Creatinine 0.78 (0.6-1.2) mg/dl Est Cr Clr Drug Dosing 84.3 ml/min Est GFR ( Amer) 101.3 Est GFR (Non-Af Amer) 87.4 BUN/Creatinine Ratio 19.5 (10-20) Glucose 96 (70-99) mg/dl Calcium 10.1 (8.5-10.1) mg/dl Total Bilirubin 0.3 (0.2-1) mg/dl AST 14 L (15-37) U/L ALT 16 (12-78) U/L Alkaline Phosphatase 88 (45-117) U/L Total Protein 7.1 (6.4-8.2) gm/dl Albumin 3.3 L (3.4-5.0) gm/dl Globulin 3.8 (2.5-4.0) gm/dl Albumin/Globulin Ratio 0.9 (0.9-2) Administered Medications Acetaminophen (Tylenol) 1,000 mg PO Q8H PASCUAL Stop: 06/15/19 15:59 Last Admin: 05/16/19 15:59 Dose: 1,000 mg Documented by: [id number] Gabapentin (Neurontin) 300 mg PO TID PASCUAL Stop: 06/15/19 14:26 Last Admin: 05/16/19 15:41 Dose: 300 mg Documented by: [id number] Ampicillin Sodium/Sulbactam Sodium 3,000 mg/ Sodium Chloride 108 mls @ 200 mls/hr IV Q6H PASCUAL; Protocol Stop: 05/26/19 15:59 Last Admin: 05/16/19 16:13 Dose: 200 mls/hr Documented by: [id number] Sodium Chloride (Nss 1000ml) 1,000 mls @ 125 mls/hr IV .Q8H PASCUAL Stop: 05/17/19 06:26 Last Infusion: 05/16/19 16:13 Dose: 0 mls/hr Documented by: [id number] Admin: 05/16/19 15:33 Dose: 125 mls/hr Documented by: [id number] Ketorolac Tromethamine (Toradol) 15 mg IV Q6H PRN PRN Reason: Moderate Pain Stop: 05/18/19 14:26 Last Admin: 05/16/19 16:00 Dose: 15 mg Documented by: [id number] Nicotine (Nicoderm Cq) 14 mg TD QAM PASCUAL Stop: 06/15/19 14:59 Last Admin: 05/16/19 15:42 Dose: Not Given Documented by: [id number] Discontinued Medications Ciprofloxacin/Dexamethasone (Ciprodex Otic) 4 drops OTR NOW STA Stop: 05/16/19 09:28 Last Admin: 05/16/19 10:28 Dose: 4 drops Documented by: [id number] Hydromorphone HCl (Dilaudid) 0.5 mg IV NOW STA Stop: 05/16/19 10:28 Last Admin: 05/16/19 10:34 Dose: 0.5 mg Documented by: [id number] Hydromorphone HCl (Dilaudid) 0.5 mg IV NOW STA Stop: 05/16/19 13:35 Last Admin: 05/16/19 14:00 Dose: 0.5 mg Documented by: [id number] Sodium Chloride (Nss 1000ml) 1,000 mls @ 999 mls/hr IV .Q1H1M ONE Stop: 05/16/19 10:14 Last Infusion: 05/16/19 11:24 Dose: 0 mls/hr Documented by: [id number] Admin: 05/16/19 09:29 Dose: 999 mls/hr Documented by: [id number] Ampicillin Sodium/Sulbactam Sodium 3,000 mg/ Sodium Chloride 108 mls @ 200 mls/hr IV NOW STA; Protocol Stop: 05/16/19 09:59 Last Infusion: 05/16/19 11:24 Dose: 0 mls/hr Documented by: [id number] Admin: 05/16/19 10:28 Dose: 200 mls/hr Documented by: [id number] Ioversol (Optiray 320 100ml) 93 ml IV ONCE PRN PRN Reason: Interaction Checking Stop: 05/20/19 10:07 Last Admin: 05/16/19 10:09 Dose: 93 ml Documented by: [id number] Ketorolac Tromethamine (Toradol) 15 mg IV NOW STA Stop: 05/16/19 09:15 Last Admin: 05/16/19 09:30 Dose: 15 mg Documented by: [id number] Discharge Plan Visit Data *Final* Discharge Date/Time: 05/16/19 14:01 Chief Complaint: Facial Injury/Pain Stated Complaint: SEEN AT ER T-1, WORSENING FACIAL SWELLING ED Provider: Harrison Dean ED Midlevel Provider: Odette Jessica Discharge Problem: Acute parotitis, Otitis externa, Cellulitis of face, Leukocytosis Patient Disposition: Admitted As Inpatient Condition: Good Discharge Instructions Interventions: ED Discharge Assessment Last Done: 05/16/19 14:01
[2019-05-16] MEDS ORDERED: KETOROLAC TROMETHAMINE 15 MG/ML VIAL IV STA (09:14)
[2019-05-16] MEDS ORDERED: SODIUM CHLORIDE 0.9% 1000ML 1,000 ML IV ONE (09:14)
[2019-05-16] MEDS ORDERED: AMPICILLIN/SULBACTAM SOD 3,000 MG in 0.9 % SODIUM CHLORIDE 100 ML IV STA (09:27)
[2019-05-16] MEDS ORDERED: CIPRO 0.3%/DEXAMETHASONE 0.1% OTIC SUSP 7.5ML OTR STA (09:27)
[2019-05-16 09:30] LABS: Basophils # (auto) 0.04 K/uL (0-0.2); Basophils % (auto) 0.3 %; Eosinophils # (auto) 0.64 K/uL (0-0.5); Eosinophils % (auto) 4.4 %; Hematocrit (blood only) 43.9 % (37-47); Hemoglobin 14.4 g/dL (12.0-16.0); Immature Granulocytes # (auto) 0.04 K/uL (0.00-0.02); Immature Granulocytes % (auto) 0.3 %; Lymphocytes # (auto) 1.85 K/uL (1.2-3.4); Lymphocytes % (auto) 12.8 %; Mean Corpuscular Hemoglobin 29.1 pg (25-34); Mean Corpuscular Hgb Conc 32.8 g/dL (32-36); Mean Corpuscular Volume 88.9 fL (80-100); Mean Platelet Volume 9.2 fL (7.4-10.4); Monocytes # (auto) 1.21 K/uL (0.11-0.59); Monocytes % (auto) 8.4 %; Neutrophils % (auto) 73.8 %; Platelet Count 282 K/uL (130-400); RDW Coefficient of Variation 13.1 % (11.5-14.5); RDW Standard Deviation 42.7 fL (36.4-46.3); Red Blood Count 4.94 M/uL (4.2-5.4); White Blood Count 14.48 K/uL (4.8-10.8)
[2019-05-16 09:52] LABS: Albumin Level 3.3 gm/dl (3.4-5.0); BUN Creatinine Ratio 19.5 (10-20); Calcium 10.1 mg/dl (8.5-10.1); Creatinine Clr Calc Pharmacy 84.3 ml/min; Est GFR (African American) 101.3; Est GFR (Non-African American) 87.4; Potassium 4.2 mmol/L (3.5-5.1)
[2019-05-16 09:54] LABS: Albumin Globulin Ratio 0.9 (0.9-2); Bilirubin,Total 0.3 mg/dl (0.2-1); Globulin 3.8 gm/dl (2.5-4.0); Total Protein 7.1 gm/dl (6.4-8.2)
[2019-05-16] MEDS ORDERED: IOVERSOL 100ml IV PRN (10:08)
[2019-05-16] MEDS ORDERED: HYDROmorphone INJ 0.5 MG/0.5 ML SYR IV STA ×3 (10:27→20:53)
--- NOTE | 2019-05-16 10:39 | CT Scan Report ---
CT soft tissue neck w con HISTORY: 53 years-old Female right otitis externa, facial and neck swelling acute right-sided facial and neck pain with soft tissue swelling COMPARISON: CTA of the neck 01/02/2015 TECHNIQUE: Multiple axial CT images of the soft tissues of the neck were obtained following the intra venous administration of 93 mL Optiray 320 IV contrast. A dose lowering technique was used consistent with the principals of STACI. FINDINGS: There is moderate subcutaneous edema about the lateral right cheek centered about the right parotid g land and extending into the right external auditory canal distribution. Heterogeneous enhancement of the right parotid gland with multiple prominent likely reactive lymph nodes adjacent to the right par otid to 5 mm. Prominent 8 mm level 1 lymph node on image 261 series 3 is also likely reactive. There is no drainable fluid collection. No focal soft tissue mass identified. Mild edema tracks along the r ight platysma myofascial margin. Unremarkable appearance of the bilateral submandibular and sublingua l glands. Prominence of the lingual tonsils with secretions noted within the vallecula. The vascular structures of the neck appear unremarkable. No pneumothorax. Lung apices are generally clear. Severe mixed attenuating secretions are noted about the nasal turbinates, ethmoid air cells, right fr ontal and bilateral maxillary sinuses with moderate mucosal thickening of the sphenoid sinuses. The m astoid air cells are clear. Trace fluid noted within the right middle ear cavity. Mild level degenera tive changes of the cervical spine. IMPRESSION: 1. Moderate subcutaneous and deep tissue edema of the right lateral cheek centered about the right pa rotid gland extending into the external auditory canal distribution. Findings are suggestive of acute parotiditis with associated otitis externa. No drainable fluid collection or discrete soft tissue ma ss. 2. Mild reactive adenopathy. 3. Trace fluid of the right middle ear cavity. Correlate clinically to exclude associated otitis medi a. 4. Marked secretions noted involving the nasopharynx with severe paranasal sinus disease as above. The above report was generated using voice recognition software. It may contain grammatical, syntax o r spelling errors. Electronically signed by: Ray Alvarez M.D. 05/16/2019 10:37 AM
--- NOTE | 2019-05-16 13:20 | History & Physical Report ---
Date of Service May 16, 2019 Assessment & Plan (1) Acute parotitis: (2) Otitis externa: Pt Tactile fevers. In ER pt afebrile, vitals stable. WBC: 14. No other SIRS criteria. DDX: bacterial vs viral parotitis, suspect bacterial at this time. DDX: MRSA -In ER given Unasyn, 1L NSS, Toradol, Dilaudid, Ciprodex drops -Ear wick placed to right ear canal in ER -Ofloxacin drops -Ear discharge culture pending -Wound culture right cheek pending -Blood cultures pending -Unasyn, Vancomycin -IVF -Scheduled Tylenol, Toradol and tramadol prn pain. Will try to avoid other narcotics as hx problems violating drug contract in clinic in past -CBC, BMP in AM -ENT consult - spoke with Dr Kang, advised ear wick and ear discharge culture (3) Asthma, intermittent: No current SOB or wheezing Has been out of Dulera and Singulair for couple of months -Continue albuterol as needed, will restart Singulair and Dulera (4) GERD (gastroesophageal reflux disease): -Continue PPI (5) Hypothyroidism: -Continue levothyroxine (6) Anxiety: (7) Depression: (8) ADHD (attention deficit hyperactivity disorder): -Continue Effexor, Lorazepam, Adderall (9) Tobacco use: Has stopped using cigarettes and now vaping -Vaping and smoking cessation discussed -Nicotine patch DVT Prophylaxis -SCDs Follows with Dr Pedro for routine care Pt was seen and care coordinated with Dr Ortiz. See addendum History of Present Illness Chief Complaint: R facial swelling Primary Care Provider: Abeba Pedro MD Pt is 53 y/o F with PMH of present, GERD, asthma, depression, anxiety, ADD presented to ER with complaint of right facial swelling. Patient reports 3 days ago started with right ear pain and noticed some right ear discharge. Reports later that day noticed some slight right facial swelling. Patient reports noticed a "black dot" to right cheek. She admits to squeezing area yesterday getting some clear drainage. Reports since has had increased right facial swelling. Reports pain and limited ability to fully open mouth. Denies any difficulty or painful swallowing. Denies any shortness of breath, wheezing. Was seen in ER yesterday and started on Augmentin and given prescription for Ciprodex however patient states did not use Ciprodex secondary to insurance issues. Reports took 3 doses of Augmentin. Patient reports tactile fevers. She reports chronic nasal congestion and denies any increased congestion or rhinorrhea. Patient has follow-up with Dr. Stokes in the past and has had a history of several sinus surgeries. Patient also reports noticing a pimple-like area to left scalp and left lower hairline for past several days. Reports 1-2 weeks ago noticed pimple like lesion to left upper leg which she feels has improved but not resolved. Denies history of MRSA. Denies diaphoresis, N/V/D/C, GONZÁLES, dizziness, syncope, vision changes, neck pain, CP, SOB, orthopnea, palpitations, cough, choking, otalgia, rhinorrhea, abdominal pain, paresthesias, weakness, extremity weakness, extremity edema, other rashes, urinary symptoms. Pt reports up to date on vaccinations including MMR. Allergies Allergy/AdvReac Type Severity Reaction Status Date / Time latex Allergy Unknown Verified 05/15/19 10:20 Bactrim AdvReac Unknown N/V, Verified 08/25/16 06:19 DIZZINESS Cipro AdvReac Unknown N/V, Verified 08/25/16 06:19 DIZZINESS ciprofloxacin AdvReac Unknown N/V, Verified 05/15/19 10:20 DIZZINESS morphine AdvReac Unknown HEADACHES Verified 05/15/19 10:20 oxycodone AdvReac Unknown nausea and Verified 05/15/19 10:20 vomiting sulfamethoxazole AdvReac Unknown N/V, Verified 05/15/19 10:20 DIZZINESS trimethoprim AdvReac Unknown N/V, Verified 05/15/19 10:20 DIZZINESS Home Medications Home Medications Medication Instructions Recorded Confirmed Type albuterol sulfate 2 puff INHALATION Q6 PRN 05/15/19 05/16/19 History amoxicillin-pot clavulanate 1 tab PO BID #20 tab 05/15/19 05/16/19 Rx [Augmentin] [id number]-dtbrlkdhkihjw-sxmu 1 tab PO Q6 PRN 05/15/19 05/16/19 History ciprofloxacin-dexamethasone 4 drops OT BID 7 Days #5 ml 05/15/19 05/16/19 Rx [Ciprodex] dextroamphetamine-amphetamine 20 mg PO BID 05/15/19 05/16/19 History gabapentin 300 mg PO TID 05/15/19 05/16/19 History levothyroxine 150 mcg PO QAM 05/15/19 05/16/19 History lorazepam 1 mg PO TID PRN 05/15/19 05/16/19 History venlafaxine 75 mg PO QAM 05/15/19 05/16/19 History flunisolide 2 spray INTRANASAL BID PRN 05/16/19 05/16/19 History meloxicam 15 mg PO DAILY PRN 05/16/19 05/16/19 History mometasone-formoterol [Dulera] 2 puff INHALATION BID 05/16/19 05/16/19 History montelukast [Singulair] 10 mg PO PM 05/16/19 05/16/19 History omeprazole 40 mg PO BID 05/16/19 05/16/19 History Past Med/Surg History Medical History Tobacco use (Chronic) Now vaping Migraine (Chronic) ADHD (attention deficit hyperactivity disorder) (Chronic) Depression (Chronic) Asthma, intermittent (Chronic) ITP (idiopathic thrombocytopenic purpura) (Chronic) GERD (gastroesophageal reflux disease) (Chronic) Seizure disorder, simple partial (Chronic) Hypothyroidism (Chronic) Anxiety (Chronic) Chronic sinusitis (Chronic) Surgical History S/P tonsillectomy and adenoidectomy (Chronic) S/P sinus surgery (Chronic) History of back surgery (Chronic) Family History Other Asthma No significant family history Thyroid disorder Social History Preferred Language: Peruvian Communication Ability: Effective Cataloging Assistant Required: No Beliefs That Will Affect Care: None Current Living Situation: Significant Other Other Information That Helps Us Care for You: No Feels Safe at Home: Yes Safety Concerns: Feels Safe At This Time Smoking Status: Current every day smoker Tobacco Type: e-cigarettes ; Cigarettes Per Day: VAPES ; Hx Alcohol Use: No Hx Substance Use: No Review of Systems Review of Systems: All systems reviewed & are unremarkable except as noted in HPI & below Physical Exam Physical Exam: General: no acute distress, WDWN Head: normocephalic, atraumatic Eyes: PERRL, EOM's intact, conjunctiva non-injected, anicteric ENT:Right ear: +tenderness to palpation tragus, +significant edema of right ear canal with slight yellow discharge with ear wick in place and unable to further visualize ear canal. Left ear with small pustule to ear lobe, otherwise normal inspection external right ear, nose, +trismus, pharynx without erythema or edema, mucous membranes moist, swallowing secretions; poor dentition, no gingival edema or erythema or precious abscess noted Face: Right side of face with significant edema extending to right mandible, right cheek with scabbed area with surrounding erythema and induration, +moderate tenderness to palpation Neck: supple, trachea midline, +lymphadenopathy post auricular Lungs: clear, no respiratory distress, no wheezing/rhonchi/rales CV: RRR, faint murmur noted, no JVD, no pretibial edema Abd: normal BS, soft, non-tender Ext: no cyanosis, no calf tenderness Neuro: A&O x 3, no focal deficits noted, normal affect Skin: warm, dry; skin lesions to face as above; +scabbed lesion to left scalp and 2 scabbed lesions to left lower posterior hairline, erythematous papule to left posterior upper leg Results & Data Vital Signs (Past 12 Hours) Vital Signs Temp Pulse Pulse Resp BP BP Pulse Ox 05/16/19 11:45 78 20 115/82 98 05/16/19 10:24 20 134/90 99 05/16/19 08:43 36.7 C 92 H 18 137/91 100 Laboratory Results Short CBC 05/16/19 Range/Units 09:20 WBC 14.48 H (4.8-10.8) K/uL Hgb 14.4 (12.0-16.0) g/dL Hct 43.9 (37-47) % Plt Count 282 (130-400) K/uL BMP 05/16/19 09:20 Sodium 136 Potassium 4.2 Chloride 101 Carbon Dioxide 31 BUN 15 Creatinine 0.78 Glucose 96 Calcium 10.1 Liver Function 05/16/19 Range/Units 09:20 Total Bilirubin 0.3 (0.2-1) mg/dl AST 14 L (15-37) U/L ALT 16 (12-78) U/L Alkaline Phosphatase 88 (45-117) U/L Albumin 3.3 L (3.4-5.0) gm/dl Diagnostic Findings CT SOFT TISSUE NECK: IMPRESSION: 1. Moderate subcutaneous and deep tissue edema of the right lateral cheek centered about the right parotid gland extending into the external auditory canal distribution. Findings are suggestive of acute parotiditis with associated otitis externa. No drainable fluid collection or discrete soft tissue mass. 2. Mild reactive adenopathy. 3. Trace fluid of the right middle ear cavity. Correlate clinically to exclude associated otitis media. 4. Marked secretions noted involving the nasopharynx with severe paranasal sinus disease as above. Code Status & VTE Plan VTE Prophylaxis Plan VTE Prophylaxis will be ordered: Yes Supervising Physician Co-Signing Physician Notes HISTORY: Record reviewed. Patient interviewed and examined. Care coordinated with Grace Moreno PA-C. Please refer to her documentation for patient's history. Briefly, 53-year-old female with history of asthma and sinus problems. Developed ear discomfort a few days ago with subsequent right facial swelling. Seen in ED yesterday and prescribed amoxicillin/clavulanic acid. Worsening right facial swelling over past 24 hours. No fever. Has had a bit of wheezing, but no respiratory distress. EXAM: General- no distress ENT- right facial / submandibular erythema and swelling; superficial ulcer right cheek; Neck- posterior cervical adenopathy Lungs- clear to auscultation; no respiratory distress Cardiovascular- RRR; I/ systolic murmur; no gallop DATA: WBC 14,000 Other lab studies as noted. CT NECK: IMPRESSION: 1. Moderate subcutaneous and deep tissue edema of the right lateral cheek centered about the right parotid gland extending into the external auditory canal distribution. Findings are suggestive of acute parotiditis with associated otitis externa. No drainable fluid collection or discrete soft tissue mass. 2. Mild reactive adenopathy. 3. Trace fluid of the right middle ear cavity. Correlate clinically to exclude associated otitis media. 4. Marked secretions noted involving the nasopharynx with severe paranasal sinus disease as above. The above report was generated using voice recognition software. It may contain grammatical, syntax or spelling errors. Electronically signed by: Ray Alvarez M.D. 05/16/2019 10:37 AM ASSESSMENT AND PLAN: Cellulitis face. Suspected parotiditis and otitis externa. Cultures obtained. IV antibiotic therapy with vancomycin and ampicillin/sulbactam. Consult ENT. Please refer to ANGELITA Landers's documentation for discussion of other issues. (1) Otitis externa Chronicity: acute Laterality: right Otitis externa type: unspecified type Qualified Code(s): H60.501 - Unspecified acute noninfective otitis externa, righ t ear
[2019-05-16] MEDS ORDERED: CONSULT PHARMACY STA (14:27)
[2019-05-16] MEDS ORDERED: ALBUTEROL HFA 8 GM INHALER INH PRN (14:27)
[2019-05-16] MEDS ORDERED: ACETAMINOPHEN 325 MG TAB PO PRN (14:27)
[2019-05-16] MEDS ORDERED: VANCOMYCIN CONSULT ACTIVE PRN (15:18)
[2019-05-16] MEDS ORDERED: LORazepam 1 MG TAB PO PRN (15:23)
[2019-05-16] MEDS ORDERED: VANCOMYCIN HCL 1,750 MG in SODIUM CHLORIDE 0.9% 500 ML IV SCH (15:30)
[2019-05-16] MEDS: SODIUM CHLORIDE 0.9% 1000ML 1,000 ML IV SCH (15:33)
[2019-05-16] MEDS ORDERED: FLUTICASONE PROPIONATE NA SPR 16 GM BTL PRN (15:40)
[2019-05-16] MEDS: GABAPENTIN 300 MG CAP PO SCH ×2 (15:41→20:56)
[2019-05-16] MEDS: NICOTINE 14 MG/24 HR PATCH TD SCH (15:42)
[2019-05-16] MEDS: ACETAMINOPHEN 500 MG TAB PO SCH ×2 (15:59→23:42)
[2019-05-16] MEDS: KETOROLAC TROMETHAMINE 15 MG/ML VIAL IV PRN (16:00)
[2019-05-16] MEDS: AMPICILLIN/SULBACTAM SOD 3,000 MG in 0.9 % SODIUM CHLORIDE 100 ML IV SCH ×2 (16:13→20:57)
--- NOTE | 2019-05-16 17:54 | ENT Consultation ---
Date of Consultation May 16, 2019 Assessment & Plan (1) Cellulitis of face: Incision and drainage for culture, will also have endoscopic sinus surgery in that her CT showed opacified sinuses with polyposis (2) Abscess of face: I and D History of Present Illness Reason for Consultation: facial swelling, sinus and ear infection Attending Physician: Clayton Ortiz MD History of Present Illness 53 yo with sudden onset right facial swelling, swollen right ear and worsening chronic sinusitis Allergies Allergy/AdvReac Type Severity Reaction Status Date / Time latex Allergy Unknown Verified 05/15/19 10:20 Bactrim AdvReac Unknown N/V, Verified 08/25/16 06:19 DIZZINESS Cipro AdvReac Unknown N/V, Verified 08/25/16 06:19 DIZZINESS ciprofloxacin AdvReac Unknown N/V, Verified 05/15/19 10:20 DIZZINESS morphine AdvReac Unknown HEADACHES Verified 05/15/19 10:20 oxycodone AdvReac Unknown nausea and Verified 05/15/19 10:20 vomiting sulfamethoxazole AdvReac Unknown N/V, Verified 05/15/19 10:20 DIZZINESS trimethoprim AdvReac Unknown N/V, Verified 05/15/19 10:20 DIZZINESS Home Medications Home Medications Medication Instructions Recorded Confirmed Type albuterol sulfate 2 puff INHALATION Q6 PRN 05/15/19 05/16/19 History amoxicillin-pot clavulanate 1 tab PO BID #20 tab 05/15/19 05/16/19 Rx [Augmentin] kellncucru-bddtjmbmlvjzv-bnbr 1 tab PO Q6 PRN 05/15/19 05/16/19 History ciprofloxacin-dexamethasone 4 drops OT BID 7 Days #5 ml 05/15/19 05/16/19 Rx [Ciprodex] dextroamphetamine-amphetamine 20 mg PO BID 05/15/19 05/16/19 History gabapentin 300 mg PO TID 05/15/19 05/16/19 History levothyroxine 150 mcg PO QAM 05/15/19 05/16/19 History lorazepam 1 mg PO TID PRN 05/15/19 05/16/19 History venlafaxine 75 mg PO QAM 05/15/19 05/16/19 History flunisolide 2 spray INTRANASAL BID PRN 05/16/19 05/16/19 History meloxicam 15 mg PO DAILY PRN 05/16/19 05/16/19 History mometasone-formoterol [Dulera] 2 puff INHALATION BID 05/16/19 05/16/19 History montelukast [Singulair] 10 mg PO PM 05/16/19 05/16/19 History omeprazole 40 mg PO BID 05/16/19 05/16/19 History Patient History Medical History Tobacco use (Chronic) Now vaping Migraine (Chronic) ADHD (attention deficit hyperactivity disorder) (Chronic) Depression (Chronic) Asthma, intermittent (Chronic) ITP (idiopathic thrombocytopenic purpura) (Chronic) GERD (gastroesophageal reflux disease) (Chronic) Seizure disorder, simple partial (Chronic) Hypothyroidism (Chronic) Anxiety (Chronic) Chronic sinusitis (Chronic) Surgical History S/P tonsillectomy and adenoidectomy (Chronic) S/P sinus surgery (Chronic) History of back surgery (Chronic) Family History Other Asthma No significant family history Thyroid disorder Social History Preferred Language: Scottish Communication Ability: Effective Insurance Follow Up Specialist Required: No Beliefs That Will Affect Care: None Current Living Situation: Significant Other Other Information That Helps Us Care for You: No Feels Safe at Home: Yes Safety Concerns: Feels Safe At This Time Smoking Status: Current every day smoker Tobacco Type: e-cigarettes ; Cigarettes Per Day: VAPES ; Hx Alcohol Use: No Hx Substance Use: No Physical Exam Constitutional: WD/WN, vitals as above Eyes: PERRL, conjunctivae normal, anicteric sclerae ENMT: Ears: + EAC abnormality (right canal swollen shut, wick in place) Nose: + facial exam abnormality (right facial abcess/cellulitis 4 cm.) and + facial edema (and cellulitis 4 cm.) Neck: trachea midline, no thyromegaly Respiratory: normal respiratory effort, lungs clear to auscultation Cardiovascular: RRR, no murmur, no edema Results & Data Vital Signs (Past 12 Hours) Vital Signs Temp Pulse Pulse Resp BP BP Pulse Ox 05/16/19 15:24 36.4 C L 61 16 116/76 94 05/16/19 14:30 36.5 C 72 18 130/87 95 05/16/19 14:01 72 20 117/72 98 05/16/19 11:45 78 20 115/82 98 05/16/19 10:24 20 134/90 99 05/16/19 08:43 36.7 C 92 H 18 137/91 100 PG Care Time/CCT Total # of Minutes Spent Total Time Spent with Patient: Total time spent is greater than 50% in coordination of care (as documented) at patient's floor/unit and/or counseling patient:
[2019-05-16] MEDS: ONDANSETRON INJ 2 MG/ML 2 ML VIAL IV PRN (18:08)
[2019-05-16] MEDS: TRAMADOL HCL 50 MG TABLET PO PRN (20:27)
[2019-05-16] MEDS: FLUTICASONE/SALMETEROL 250/50 (ADVAIR) 14 PUFF/1 INHALER INH SCH (20:55)
[2019-05-16] MEDS: AMPHETAMINE ASP/SULF/DEXTRAMPH 20 MG TAB PO SCH (20:55)
[2019-05-16] MEDS: MONTELUKAST SODIUM 10 MG TABLET PO SCH (20:56)
[2019-05-16] MEDS: PANTOprazole 40 MG TAB PO SCH (20:56)
[2019-05-16] MEDS ORDERED: FLUTICASONE/SALMETEROL 250/50 (ADVAIR) 14 PUFF/1 INHALER INH SCH (21:00)
[2019-05-17] MEDS: SODIUM CHLORIDE 0.9% 1000ML 1,000 ML IV SCH (03:38)
[2019-05-17] MEDS: VANCOMYCIN HCL 1,000 MG in SODIUM CHLORIDE 0.9% 250 ML IV SCH ×2 (03:38→14:38)
[2019-05-17] MEDS: AMPICILLIN/SULBACTAM SOD 3,000 MG in 0.9 % SODIUM CHLORIDE 100 ML IV SCH ×3 (03:38→16:13)
[2019-05-17] MEDS: LEVOTHYROXINE SODIUM 150 MCG TABLET PO SCH (05:47)
[2019-05-17 06:33] LABS: Basophils # (auto) 0.04 K/uL (0-0.2); Basophils % (auto) 0.4 %; Eosinophils # (auto) 0.81 K/uL (0-0.5); Eosinophils % (auto) 8.4 %; Hematocrit (blood only) 39.8 % (37-47); Hemoglobin 12.7 g/dL (12.0-16.0); Immature Granulocytes # (auto) 0.01 K/uL (0.00-0.02); Immature Granulocytes % (auto) 0.1 %; Lymphocytes # (auto) 2.16 K/uL (1.2-3.4); Lymphocytes % (auto) 22.3 %; Mean Corpuscular Hemoglobin 28.9 pg (25-34); Mean Corpuscular Hgb Conc 31.9 g/dL (32-36); Mean Corpuscular Volume 90.5 fL (80-100); Mean Platelet Volume 9.1 fL (7.4-10.4); Monocytes # (auto) 0.77 K/uL (0.11-0.59); Neutrophils # (auto) 5.88 K/uL (1.4-6.5); Neutrophils % (auto) 60.8 %; Platelet Count 259 K/uL (130-400); RDW Standard Deviation 43.2 fL (36.4-46.3); White Blood Count 9.67 K/uL (4.8-10.8)
[2019-05-17 07:08] LABS: BUN Creatinine Ratio 17.4 (10-20); Calcium 8.5 mg/dl (8.5-10.1); Creatinine Clr Calc Pharmacy 104.4 ml/min; Est GFR (African American) 119.5; Est GFR (Non-African American) 103.1
[2019-05-17] MEDS: ACETAMINOPHEN 500 MG TAB PO SCH (08:39)
[2019-05-17] MEDS: FLUTICASONE/SALMETEROL 250/50 (ADVAIR) 14 PUFF/1 INHALER INH SCH ×2 (08:39→20:00)
[2019-05-17] MEDS: AMPHETAMINE ASP/SULF/DEXTRAMPH 20 MG TAB PO SCH ×2 (08:39→20:00)
[2019-05-17] MEDS: VENLAFAXINE HCL XR 75 MG CAPXR PO SCH (08:40)
[2019-05-17] MEDS: PANTOprazole 40 MG TAB PO SCH ×2 (08:40→20:00)
[2019-05-17] MEDS: OFLOXACIN 0.3% OP SOLN 5 ML BTL OTR SCH (08:40)
[2019-05-17] MEDS: NICOTINE 14 MG/24 HR PATCH TD SCH (08:41)
[2019-05-17] MEDS: KETOROLAC TROMETHAMINE 15 MG/ML VIAL IV PRN (08:46)
--- NOTE | 2019-05-17 09:37 | Pharmacy Report ---
Pharmacy Abx Initial Consult - Date of Service May 17, 2019 - Pharmacy Dosing Scope Date of Consult: 05/16/19 Consultation requested by: Dr. Grace Landers Pharmacy is consulted to initiate Vancomycin IV dosing therapy, order appropriate labs and adjust drug dose/frequency. - Subjective The patient is a 53 year old F admitted on 05/17/19 08:52 with Acute parotitis, Otitis externa, Tactile fevers, facial cellulitis and abscess, EENT consult, I&D. - Objective Height: 5 ft 5 in Weight: 72.7 kg Vital Signs (Past 12hrs): Vital Signs Temp Pulse Resp BP Pulse Ox 05/17/19 06:56 36.5 C 69 18 111/72 98 05/16/19 23:44 36.5 C 76 16 115/78 94 Lab Results (24hrs): Laboratory Tests (24 Hours) 05/17/19 05/17/19 05/16/19 06:23 06:23 09:20 WBC 9.67 Neut # (Auto) 5.88 Creatinine 0.63 0.78 Est Cr Clr Drug Dosing 104.4 84.3 Micro Results: 05/16/19 13:20 Gram Stain - Pending Ear,Right Wound Culture - Pending 05/16/19 13:20 Gram Stain - Pending Face Wound Culture - Pending 05/16/19 14:47 Aerobic Blood Culture - Pending Blood Anaerobic Blood Culture - Pending 05/16/19 14:58 Aerobic Blood Culture - Pending Blood Anaerobic Blood Culture - Pending - Assessment & Plan Assessment 53 year old F admitted with facial cellulitis and abscess, I&D, facial, ear, and blood cultures pending. Plan IV Vancomycin and Unasyn for treatment of facial cellulitis and abscess. Vancomycin IV * Estimated PK Parameters: Vd 0.7 L/kg, Marcelino 0.07 hr-1, t1/2 9hr * Loading dose: 1750 mg (24 mg/kg) * Maintenance dose: 1000 mg IV (14 mg/kg) every 10 hours * Goal trough level: 15 to 20 mcg/mL * Trough level ordered for 05/18/19 prior to 1000 dose. Unasyn 3g IV Q6H - appropriate for renal function Pharmacy will continue to follow and will adjust dose/frequency as necessary. Thank you.
[2019-05-17] MEDS: GABAPENTIN 300 MG CAP PO SCH ×3 (10:00→20:00)
[2019-05-17] MEDS: TRAMADOL HCL 50 MG TABLET PO PRN (10:20)
[2019-05-17] MEDS ORDERED: KETOROLAC TROMETHAMINE 15 MG/ML VIAL IV PRN (12:37)
[2019-05-17] MEDS ORDERED: LIDOCAINE/EPINE 2% 1:100,000 20ML ONE (13:14)
[2019-05-17] MEDS ORDERED: GELATIN SPONGE 12-7MM ONE (13:14)
[2019-05-17] MEDS ORDERED: BACITRACIN OINT 15 GM TUBE ONE (13:14)
[2019-05-17] MEDS ORDERED: TRIAMCINOLONE ACET 40 MG/ML VIAL ONE (13:14)
[2019-05-17] MEDS ORDERED: LIDOCAINE 4% INH SOLN 4 ML BTL ONE (13:15)
[2019-05-17] MEDS ORDERED: PROPOFOL IV EMULSION 10 MG/ML 20 ML VIAL IV ONE ×2 (13:21→15:19)
[2019-05-17] MEDS ORDERED: fentaNYL citrate 100 MCG/2 ML VIAL ONE (13:21)
[2019-05-17] MEDS ORDERED: ONDANSETRON INJ 2 MG/ML 2 ML VIAL ONE ×2 (13:21→15:19)
[2019-05-17] MEDS ORDERED: MIDAZOLAM HCL 1 MG/ML 2ML VIAL ONE (13:21)
[2019-05-17] MEDS ORDERED: LIDOCAINE HCL 2% 2 ML VIAL/AMP(20MG/ML) INFIL ONE ×2 (13:21→15:19)
--- NOTE | 2019-05-17 13:28 | History & Physical Bridge Note ---
Date of Service May 17, 2019 History & Physical Bridge Note I have examined the patient, reviewed the History & Physical and in the interval since the performance of the History & Physical I have noted the following changes of clinical significance: no changes noted
[2019-05-17] MEDS ORDERED: EpINEphrine HCL INJ 1 MG/ML 1ML SYRINGE ONE (13:37)
--- NOTE | 2019-05-17 13:44 | Anesthesiology Consultation ---
Date of Service May 17, 2019 Assessment & Plan ASA [id number] Proposed Anesthesia Anesthesia Type: General Risk / Benefits Reviewed With: PT / POA / Parent / Guardian, Accepts Plan and Informed Consent Obtained History Surgery Operation Date: 05/17/19 07:00 Proposed Procedures p Endoscopic Sinus Surgery; Right Facial Abscess Incision and Drainage; Bilateral Ear Cleaning - Ria Kang MD Operation Date: 05/17/19 13:00 Proposed Procedures p Endoscopic Sinus Surgery, I&D right facial abscess with culture, clean out right ear canal - Ria Kang MD Height/Weight Height: 5 ft 5 in Weight: 72.7 kg Allergies Allergy/AdvReac Type Severity Reaction Status Date / Time latex Allergy Unknown Verified 05/15/19 10:20 Bactrim AdvReac Unknown N/V, Verified 08/25/16 06:19 DIZZINESS Cipro AdvReac Unknown N/V, Verified 08/25/16 06:19 DIZZINESS ciprofloxacin AdvReac Unknown N/V, Verified 05/15/19 10:20 DIZZINESS morphine AdvReac Unknown HEADACHES Verified 05/15/19 10:20 oxycodone AdvReac Unknown nausea and Verified 05/15/19 10:20 vomiting sulfamethoxazole AdvReac Unknown N/V, Verified 05/15/19 10:20 DIZZINESS trimethoprim AdvReac Unknown N/V, Verified 05/15/19 10:20 DIZZINESS Medications Home Medications Medication Instructions Recorded Confirmed Last Taken albuterol sulfate 2 puff INHALATION Q6 PRN 05/15/19 05/16/19 Unknown amoxicillin-pot clavulanate 1 tab PO BID #20 tab 05/15/19 05/16/19 Unknown [Augmentin] jsmaqyddcm-slqfquqahaphb-yqvg 1 tab PO Q6 PRN 05/15/19 05/16/19 Unknown ciprofloxacin-dexamethasone 4 drops OT BID 7 Days #5 ml 05/15/19 05/16/19 Unknown [Ciprodex] dextroamphetamine-amphetamine 20 mg PO BID 05/15/19 05/16/19 Unknown gabapentin 300 mg PO TID 05/15/19 05/16/19 Unknown levothyroxine 150 mcg PO QAM 05/15/19 05/16/19 Unknown lorazepam 1 mg PO TID PRN 05/15/19 05/16/19 Unknown venlafaxine 75 mg PO QAM 05/15/19 05/16/19 Unknown flunisolide 2 spray INTRANASAL BID PRN 05/16/19 05/16/19 Unknown meloxicam 15 mg PO DAILY PRN 05/16/19 05/16/19 Unknown mometasone-formoterol [Dulera] 2 puff INHALATION BID 05/16/19 05/16/19 Unknown montelukast [Singulair] 10 mg PO PM 05/16/19 05/16/19 Unknown omeprazole 40 mg PO BID 05/16/19 05/16/19 Unknown Active Medications Generic Name Dose Route Start Last Admin Trade Name Freq PRN Reason Stop Dose Admin Albuterol 2 puffs 05/16/19 14:27 05/16/19 20:56 Ventolin Hfa INH 06/15/19 14:26 2 puffs Q6 PRN Administration Shortness Of Breath Or Wheezing Amphetamine/Dextroamphetamine 20 mg 05/16/19 21:00 05/17/19 08:39 Adderall PO 05/30/19 20:59 20 mg BID PASCUAL Administration Gabapentin 300 mg 05/16/19 14:27 05/17/19 10:00 Neurontin PO 06/15/19 14:26 300 mg TID PASCUAL Administration Ampicillin Sodium/Sulbactam 108 mls @ 200 mls/hr 05/16/19 16:00 05/17/19 10:32 Sodium 3,000 mg/ Sodium IV 05/26/19 15:59 Infused Chloride Q6H PASCUAL Infusion Protocol Vancomycin HCl 1,000 mg/ 270 mls @ 125 mls/hr 05/17/19 04:00 05/17/19 05:46 Sodium Chloride IV 05/27/19 03:59 Infused Q10H PASCUAL Infusion Levothyroxine Sodium 150 mcg 05/17/19 06:30 05/17/19 05:47 Synthroid PO 06/16/19 06:29 150 mcg DAILYBB PASCUAL Administration Miscellaneous 1 ea 05/16/19 23:00 05/16/19 21:46 Remove Nicoderm Patch N/A 06/15/19 22:59 Not Given HS PASCUAL Montelukast Sodium 10 mg 05/16/19 21:00 05/16/19 20:56 Singulair PO 06/15/19 20:59 10 mg PM PASCUAL Administration Nicotine 14 mg 05/16/19 15:00 05/17/19 08:41 Nicoderm Cq TD 06/15/19 14:59 14 mg QAM PASCUAL Administration Ofloxacin 10 drops 05/17/19 09:00 05/17/19 08:40 Ocuflox 0.3% OTR 05/27/19 08:59 10 drops DAILY PASCUAL Administration Ondansetron HCl 4 mg 05/16/19 14:27 05/16/19 18:08 Zofran IV 06/15/19 14:26 4 mg Q6H PRN Administration Nausea Pantoprazole Sodium 40 mg 05/16/19 21:00 05/17/19 08:40 Protonix PO 06/15/19 20:59 40 mg BID PASCUAL Administration Fluticasone/Salmeterol 1 puffs 05/16/19 21:00 05/17/19 08:39 Advair Diskus 250/50 INH 06/15/19 20:59 Not Given BID PASCUAL Tramadol HCl 50 mg 05/16/19 14:27 05/17/19 10:20 Ultram PO 06/15/19 14:26 50 mg Q4H PRN Administration Pain Venlafaxine HCl 75 mg 05/17/19 09:00 05/17/19 08:40 Effexor Extended Release PO 06/16/19 08:59 75 mg QAM PASCUAL Administration NPO Date Last Intake of Fluids: 05/16/19 Time Last Intake of Fluids: 23:00 Date Last Intake of Solids: 05/16/19 Time Last Intake of Solids: 23:00 Past Medical History Medical History Tobacco use (Chronic) Now vaping Migraine (Chronic) ADHD (attention deficit hyperactivity disorder) (Chronic) Depression (Chronic) Asthma, intermittent (Chronic) ITP (idiopathic thrombocytopenic purpura) (Chronic) GERD (gastroesophageal reflux disease) (Chronic) Seizure disorder, simple partial (Chronic) Hypothyroidism (Chronic) Anxiety (Chronic) Chronic sinusitis (Chronic) Exercise / Class Metabolic Activity II 4-5 Yardwork/Stairs/Walk up hill Past Family History Family History Other Asthma No significant family history Thyroid disorder Past Surgical History Surgical History S/P tonsillectomy and adenoidectomy (Chronic) S/P sinus surgery (Chronic) History of back surgery (Chronic) Past Anesthesia History No Hx of Anesthesia Complications and No Family Hx of Anesthesia Complications History of PONV No Hx of PONV and No Hx of Motion Sickness Social History Smoking Status: Current every day smoker tobacco type: e-cigarettes Smoking cigarettes per day: VAPES Hx Alcohol Use: No Hx Substance Use: No Physical Exam Vital Signs Last Vital Signs Temp 36.5 C 05/17/19 13:35 Pulse 67 05/17/19 13:35 Resp 18 05/17/19 13:35 BP 115/95 05/17/19 13:35 Pulse Ox 97 05/17/19 13:35 Testing Laboratory Results 05/17/19 06:23 05/17/19 06:23 05/16/19 13:20 Gram Stain - Final Ear,Right 05/16/19 13:20 Gram Stain - Final Face
[2019-05-17] MEDS ORDERED: ePHEDrine sulfate 50 MG/ML AMP ONE (15:19)
[2019-05-17] MEDS ORDERED: ePHEDrine sulfate 50 MG/ML SYR ONE (15:19)
[2019-05-17] MEDS ORDERED: PHENYLEPHRINE 100MCG/ML 5ML SYR ONE (16:25)
--- NOTE | 2019-05-17 16:44 | Operative Report ---
Post Operative Report Pre & Post Diagnosis Operation Date: 05/17/19 07:00 Pre-Op Diagnosis: Cellulitis of face; abscess of face; chronic sinusitis and nasal polyposis Post-Op Diagnosis: Cellulitis of face; abscess of right face; right external ear canal abscess; chronic sinusitis and nasal polyposis Operation Date: 05/17/19 13:00 <No data on this case meets the specified criteria> I identified the patient and participated in the time-out.: Yes Procedure Operation Date: 05/17/19 07:00 Actual Procedures p Endoscopic Sinus Surgery, right and left frontal, right and left sphenoid, right and left total ethmoid, right and left maxillary; Right Facial Abscess Incision and Drainage; Bilateral Ear Cleaning, incision and drainage of abscess of right ear canal - Ria Kang MD Operation Date: 05/17/19 13:00 <No data on this case meets the specified criteria> Surgeon Ria Kang MD [employer] None Estimated Blood Loss 100 Findings Consistent with Post-Op Diagnosis Specimens Left nasal polyp, culture right ear canal abscess, culture right facial abscess Drains Iodoform packing right facial abscess Anesthesia Type General Complications none Disposition Accompanied Patient To Recovery: Yes Disposition: Recovery Room Indications 53-year-old lady with progressively worsening right facial abscess in spite of IV antibiotics of vancomycin and Unasyn also has significant swelling of the right ear canal with otowick in place was found to have abscess of the right external auditory meatus also had chronic sinusitis and polyposis totally blocking all her sinuses Description of Procedure She was brought to the operating room, properly identified, prepped and draped in the usual sterile manner after general anesthesia with LMA. [employer] device was calibrated and used for the entire procedure. The nose was decongested using topical cottonoids with a solution of 4 cc of 4% Xylocaine mixed with 1 cc of epinephrine. Injection of 2% Xylocaine with 1-1000 strength epinephrine was also used. The right sphenoid was cannulated with a guidewire with [employer] computer guidance and then dilated using the 6 mm balloon as was the left sphenoid sinus. The right nasofrontal duct was cannulated with a guidewire and dilated using the 6 mm balloon with [employer] computer guidance. The shaver was used by coupling it with the [employer] device and then removing the nasal polyps protruding out of the middle meatus and into the nasopharynx along the inferior border of the middle turbinate preserving the middle turbinate. At this point the polyps were followed into the ostiomeatal complex where the polyps totally filled the ethmoid cavity and were removed using the shaver coupled with the [employer] device to identify the skull base and lamina papyracea I and preserving the middle turbinate. The polyps that the nasofrontal duct were also removed along with polyps at the anterior face of the sphenoid the maxillary sinus was also opened by removing polyps at the residual uncinate process blocking the meatus. The antrostomy opening was widened to clean out the right maxillary sinus. The left frontal sinusotomy total ethmoidectomy sphenoidotomy and maxillary sinus antrostomy was performed similar manner again finding polyps totally filling the ethmoid and ex tending out into the floor the nose and into the nasopharynx. At this point the nasal cavity was suctioned clean and the frontal sinus was then re-ballooned open and irrigated clean with saline and contour stents were then placed into both the right and left frontal sinuses. At this point propel stents were placed into the middle meatus with the posterior and extending into the sphenoid ostia. Attention was turned to the right ear canal with the microscope was used remove the otowick finding an abscess at the external auditory meatus which was opened and a culture of the abscess content was taken. Foreign body was found in the external auditory canal, be in a clump of her hair. The left ear canal was also suctioned clean although there was no abscess in the left ear canal. The right facial abscess was opened by removing the black eschar over the abscess cavity using the 15 blade and then finding the abscess cavity to extend the length of the mosquito hemostat into the face all the loculations were opened using the mosquito hemostat and the abscess cavity was cultured and then irrigated clean with saline and then packed with iodoform gauze. A light pressure dressing was placed. She tolerated the procedure well and was taken to the recovery area in satisfactory condition. I attest to the content of the Intraoperative Record and any orders documented therein. Any exceptions are noted below.
[2019-05-17] MEDS ORDERED: HYDROmorphone INJ 1 MG/ML SYRINGE IV PRN (16:58)
[2019-05-17] MEDS ORDERED: ONDANSETRON INJ 2 MG/ML 2 ML VIAL IV PRN (16:58)
[2019-05-17] MEDS ORDERED: ATROPINE SULFATE 0.1 MG/ML 10ML SYR IV PRN (16:58)
[2019-05-17] MEDS ORDERED: ePHEDrine sulfate 50 MG/ML AMP IV PRN (16:58)
[2019-05-17] MEDS: fentaNYL citrate 100 MCG/2 ML VIAL IV PRN ×3 (17:15→17:25)
--- NOTE | 2019-05-17 17:25 | Anesthesiology Progress Note ---
Date of Service May 17, 2019 Anesthesia Post Procedure Vital Signs Vital Signs: Temp Pulse Pulse Resp BP Pulse Ox 05/17/19 17:15 36.0 C L 73 11 L 133/92 100 05/17/19 17:05 36.0 C L 73 14 137/103 H 100 05/17/19 16:55 36.0 C L 74 18 141/98 H 100 05/17/19 16:45 36.0 C L 75 21 142/97 H 100 05/17/19 16:35 36.0 C L 65 12 135/85 100 05/17/19 13:35 36.5 C 67 18 115/95 97 05/17/19 11:46 96 05/17/19 06:56 36.5 C 69 18 111/72 98 05/16/19 23:44 36.5 C 76 16 115/78 94 Pain Intensity Right Face: Pain Intensity: 9 Transfer of Care Handoff Completed per policy Notes Mental Status: alert / awake / arousable and participated in evaluation Patient Amnestic to Procedure: Yes Nausea / Vomiting: adequately controlled Pain: adequately controlled Airway Patency, RR, SpO2: stable & adequate BP & HR: stable & adequate Hydration State: stable & adequate Anesthetic Complications: no major complications apparent and Pt Satisfied with anesthetic care
--- NOTE | 2019-05-17 17:40 | Hospitalist Progress Note ---
Date of Service May 17, 2019 Assessment & Plan (1) Acute parotitis: With right facial abscess Presented with swelling, pain of right cheek area: CT of soft tissue neck with contrast: IMPRESSION: 1. Moderate subcutaneous and deep tissue edema of the right lateral cheek center ed about the right parotid gland extending into the external auditory canal distribution. Findings are suggestive of acute parotiditis with associated otitis externa. No drainable fluid collection or discrete soft tissue mass. 2. Mild reactive adenopathy. 3. Trace fluid of the right middle ear cavity. Correlate clinically to exclude associated otitis media. She started empirically with IV Unasyn, vancomycin: Ordered for wound culture ENT evaluation requested, appreciate input, scheduled for or for I&D today (2) Otitis externa: Right otitis externa, with edema and purulent drainage noted on right ear canal -Ofloxacin drops -ENT consulted, appreciate input ACUTE SINUSITIS Status post: I&D of right facial abscess, bilateral ear cleaning, incision and drainage of abscess of right ear canal, endoscopic sinus surgery of right and left frontal, right and left sphenoidal, right and left total ethmoid and right and left maxillary sinuses (3) Asthma, intermittent: No current SOB or wheezing Has been out of Dulera and Singulair for couple of months -Continue albuterol as needed, will restart Singulair and Dulera (4) GERD (gastroesophageal reflux disease): -Continue PPI (5) Hypothyroidism: -Continue levothyroxine (6) Anxiety: (7) Depression: (8) ADHD (attention deficit hyperactivity disorder): -Continue Effexor, Lorazepam, Adderall (9) Tobacco use: Has stopped using cigarettes and now vaping -Vaping and smoking cessation discussed -Nicotine patch DVT Prophylaxis -SCDs Disposition: Expected to be discharged home when medically stable Follows with Dr Pedro for routine care Will need outpatient follow-up with ENT Dr. Kang Subjective Patient complains of increasing pain, swelling of right facial abscess, assist with dizzy spell, no fever or chills Scheduled for or today for I&D of right facial abscess, sinus drainage, and right otitis externa by ENT Physical Exam Constitutional: WD/WN, vitals as above Eyes: PERRL, conjunctivae normal, anicteric sclerae ENMT: Ears: + external ear abnormality (Right ear canal, swelling edematous purulent drainage noted) Mouth: + small oral opening (2/2 facial abcess); no TMJ abnormality and no dentition abnormality Mallampati Class: II Neck: trachea midline, no thyromegaly neck extension not limited Respiratory: normal respiratory effort, lungs clear to auscultation normal respiratory effort; no respiratory distress Auscultation: lungs clear to auscultation bilaterally Cardiovascular: RRR, no murmur, no edema Rate/Rhythm: regular rate and regular rhythm Results & Data Vital Signs (Past 12 Hours) Vital Signs Temp Pulse Pulse Resp BP Pulse Ox 05/17/19 17:35 36.3 C L 69 17 123/70 96 05/17/19 17:25 36.3 C L 72 10 L 116/75 95 05/17/19 17:15 36.0 C L 73 11 L 133/92 100 05/17/19 17:05 36.0 C L 73 14 137/103 H 100 05/17/19 16:55 36.0 C L 74 18 141/98 H 100 05/17/19 16:45 36.0 C L 75 21 142/97 H 100 05/17/19 16:35 36.0 C L 65 12 135/85 100 05/17/19 13:35 36.5 C 67 18 115/95 97 05/17/19 11:46 96 05/17/19 06:56 36.5 C 69 18 111/72 98 (1) Otitis externa Chronicity: acute Laterality: right Otitis externa type: diffuse Qualified Code(s): H60.311 - Diffuse otitis externa, right ear
[2019-05-17] MEDS: ACETAMINOPHEN 1,000 MG/100 ML VIAL IV SCH (19:51)
[2019-05-17] MEDS: MONTELUKAST SODIUM 10 MG TABLET PO SCH (20:00)
[2019-05-17] MEDS: MECLIZINE 12.5 MG TAB PO PRN (20:10)
[2019-05-17] MEDS: HYDROmorphone INJ 0.5 MG/0.5 ML SYR IV PRN (21:19)
[2019-05-17] MEDS: ONDANSETRON INJ 2 MG/ML 2 ML VIAL IV PRN (21:20)
[2019-05-18] MEDS: VANCOMYCIN HCL 1,000 MG in SODIUM CHLORIDE 0.9% 250 ML IV SCH ×2 (02:18→12:29)
[2019-05-18] MEDS: HYDROmorphone INJ 0.5 MG/0.5 ML SYR IV PRN ×5 (02:24→22:32)
[2019-05-18] MEDS: BACITRACIN OINT 0.9 GM PKT EXT PRN ×2 (04:38→22:36)
[2019-05-18] MEDS: ACETAMINOPHEN 1,000 MG/100 ML VIAL IV SCH ×3 (04:41→20:22)
[2019-05-18] MEDS: LEVOTHYROXINE SODIUM 150 MCG TABLET PO SCH (05:52)
[2019-05-18] MEDS: PANTOprazole 40 MG TAB PO SCH ×2 (08:02→20:24)
[2019-05-18] MEDS: GABAPENTIN 300 MG CAP PO SCH ×3 (08:02→20:22)
[2019-05-18] MEDS: VENLAFAXINE HCL XR 75 MG CAPXR PO SCH (08:02)
[2019-05-18] MEDS: NICOTINE 14 MG/24 HR PATCH TD SCH (08:02)
[2019-05-18] MEDS: FLUTICASONE/SALMETEROL 250/50 (ADVAIR) 14 PUFF/1 INHALER INH SCH ×2 (08:02→20:23)
[2019-05-18] MEDS: AMPHETAMINE ASP/SULF/DEXTRAMPH 20 MG TAB PO SCH ×2 (08:02→22:13)
[2019-05-18] MEDS: OFLOXACIN 0.3% OP SOLN 5 ML BTL OTR SCH (08:03)
[2019-05-18 08:19] LABS: Creatinine Clr Calc Pharmacy 119.5 ml/min; Est GFR (Non-African American) 107.8
[2019-05-18] MEDS ORDERED: VANCOMYCIN TROUGH ONE ×2 (09:30→11:30)
[2019-05-18] MEDS ORDERED: SODIUM CHLORIDE 0.65% NA SOLN 45 ML (OCEAN) PRN (09:36)
--- NOTE | 2019-05-18 10:02 | Surgery Progress Note ---
Date of Service May 18, 2019 Assessment & Plan (1) Abscess of face: sensitive to clinda and bactrim (2) Cellulitis of face: can be treated as outpatient when OK by medical (3) Otitis externa: apply bacitacin and same antibiotics Subjective feels better Physical Exam Physical Exam: right face improved, packing in place Results & Data Vital Signs (Past 12 Hours) Vital Signs Temp Pulse Pulse Resp BP Pulse Ox 05/18/19 07:47 36.6 C 69 16 121/83 95 05/18/19 03:53 36.5 C 70 16 122/77 95 05/17/19 23:40 36.4 C L 70 16 110/73 93 (1) Otitis externa Chronicity: acute Laterality: right Otitis externa type: diffuse Qualified Code(s): H60.311 - Diffuse otitis externa, right ear
[2019-05-18] MEDS: MECLIZINE 12.5 MG TAB PO PRN (12:44)
--- NOTE | 2019-05-18 15:55 | Hospitalist Progress Note ---
Date of Service May 18, 2019 Assessment & Plan (1) Acute parotitis: With right facial abscess with MRSA infection Presented with swelling, pain of right cheek area: CT of soft tissue neck with contrast: IMPRESSION: 1. Moderate subcutaneous and deep tissue edema of the right lateral cheek centered about the right parotid gland extending into the external auditory canal distribution. Findings are suggestive of acute parotiditis with associated otitis externa. No drainable fluid collection or discrete soft tissue mass. 2. Mild reactive adenopathy. 3. Trace fluid of the right middle ear cavity. Correlate clinically to exclude associated otitis media. She started empirically with IV Unasyn, vancomycin: Culture of right cheek/right ear canal: Staph aureus MRSA ENT evaluation requested, appreciate input, Status post incision and drainage of right cheek abscess/right external ear canal abscess on 05/17/19 pre op Diagnosis: Cellulitis of face; abscess of right face; right external ear canal abscess; chronic sinusitis and nasal polyposis Procedures Endoscopic Sinus Surgery, right and left frontal, right and left sphenoid, right and left total ethmoid, right and left maxillary; Right Facial Abscess Incision and Drainage; Bilateral Ear Cleaning, incision and drainage of abscess of right ear canal - By Dr. Kang Patient has been recovering very well post procedure, being in discomfort of right facial area markedly improved, has been afebrile Operative wound culture positive for staph aureus MRSA Antibiotic adjusted: IV vancomycin discontinued, order for p.o. doxycycline will need total 10 days of treatment(she is allergic to Bactrim) (2) Otitis externa: Right otitis externa, with edema and purulent drainage noted on right ear canal status post IND Wound culture: MRSA staph aureus, started on p.o. doxycycline -Ofloxacin drops we will continue for 7 days -ENT consulted, appreciate input ACUTE SINUSITIS Status post: I&D of right facial abscess, bilateral ear cleaning, incision and drainage of abscess of right ear canal, endoscopic sinus surgery of right and left frontal, right and left sphenoidal, right and left total ethmoid and right and left maxillary sinuses (3) Asthma, intermittent: No current SOB or wheezing Has been out of Dulera and Singulair for couple of months -Continue albuterol as needed, will restart Singulair and Dulera (4) GERD (gastroesophageal reflux disease): -Continue PPI (5) Hypothyroidism: -Continue levothyroxine (6) Anxiety: (7) Depression: (8) ADHD (attention deficit hyperactivity disorder): -Continue Effexor, Lorazepam, Adderall (9) Tobacco use: Has stopped using cigarettes and now vaping -Vaping and smoking cessation discussed -Nicotine patch DVT Prophylaxis -SCDs Disposition: Plan to discharge home tomorrow if remains medically stable Follows with Dr Pedro for routine care Will need outpatient follow-up with ENT Dr. Kang Subjective Right facial swelling, ear pain markedly improved No fever No jaw pain, tolerating diet well Vital stable Feeling much better after ENT procedure yesterday Physical Exam Constitutional: WD/WN, vitals as above Eyes: PERRL, conjunctivae normal, anicteric sclerae ENMT: Ears: + external ear abnormality (Right ear canal, swelling markedly improved, no purulent drainage noted) Mouth: + TMJ abnormality (Swelling on right cheek and lower jaw has improved) and + small oral opening (2/2 facial abcess); no dentition abnormality Neck: trachea midline, no thyromegaly neck extension not limited Respiratory: normal respiratory effort, lungs clear to auscultation normal respiratory effort; no respiratory distress Auscultation: lungs clear to auscultation bilaterally Cardiovascular: RRR, no murmur, no edema Rate/Rhythm: regular rate and regular rhythm Results & Data Vital Signs (Past 12 Hours) Vital Signs Temp Pulse Pulse Resp BP BP Pulse Ox 05/18/19 15:37 36.9 C 70 16 123/80 95 05/18/19 12:30 36.6 C 73 18 144/91 H 97 05/18/19 07:47 36.6 C 69 16 121/83 95 (1) Otitis externa Chronicity: acute Laterality: right Otitis externa type: diffuse Qualified Code(s): H60.311 - Diffuse otitis externa, right ear
[2019-05-18] MEDS: MONTELUKAST SODIUM 10 MG TABLET PO SCH (20:24)
[2019-05-18] MEDS ORDERED: KETOROLAC 30 MG/ML VIAL IV ONE (21:30)
[2019-05-18] MEDS: DOXYCYCLINE HYCLATE 100 MG CAP PO SCH (22:13)
[2019-05-19] MEDS: ACETAMINOPHEN 1,000 MG/100 ML VIAL IV SCH (05:09)
[2019-05-19] MEDS: LEVOTHYROXINE SODIUM 150 MCG TABLET PO SCH (06:03)
[2019-05-19 06:08] LABS: Creatinine Clr Calc Pharmacy 119.5 ml/min; Est GFR (Non-African American) 107.8
[2019-05-19] MEDS: AMPHETAMINE ASP/SULF/DEXTRAMPH 20 MG TAB PO SCH (10:20)
[2019-05-19] MEDS: GABAPENTIN 300 MG CAP PO SCH (10:21)
[2019-05-19] MEDS: PANTOprazole 40 MG TAB PO SCH (10:21)
[2019-05-19] MEDS: VENLAFAXINE HCL XR 75 MG CAPXR PO SCH (10:21)
[2019-05-19] MEDS: FLUTICASONE/SALMETEROL 250/50 (ADVAIR) 14 PUFF/1 INHALER INH SCH (10:21)
[2019-05-19] MEDS: NICOTINE 14 MG/24 HR PATCH TD SCH (10:21)
[2019-05-19] MEDS: DOXYCYCLINE HYCLATE 100 MG CAP PO SCH (10:21)
[2019-05-19] MEDS: OFLOXACIN 0.3% OP SOLN 5 ML BTL OTR SCH (10:21)
--- NOTE | 2019-05-19 11:47 | Discharge Summary ---
Date of Service May 19, 2019 Admission HPI Per Admitting Provider Pt is 53 y/o F with PMH of present, GERD, asthma, depression, anxiety, ADD presented to ER with complaint of right facial swelling. Patient reports 3 days ago started with right ear pain and noticed some right ear discharge. Reports later that day noticed some slight right facial swelling. Patient reports noticed a "black dot" to right cheek. She admits to squeezing area yesterday getting some clear drainage. Reports since has had increased right facial swelling. Reports pain and limited ability to fully open mouth. Denies any difficulty or painful swallowing. Denies any shortness of breath, wheezing. Was seen in ER yesterday and started on Augmentin and given prescription for Ciprodex however patient states did not use Ciprodex secondary to insurance issues. Reports took 3 doses of Augmentin. Patient reports tactile fevers. She reports chronic nasal congestion and denies any increased congestion or rhinorrhea. Patient has follow-up with Dr. Stokes in the past and has had a history of several sinus surgeries. Patient also reports noticing a pimple-like area to left scalp and left lower hairline for past several days. Reports 1-2 weeks ago noticed pimple like lesion to left upper leg which she feels has improved but not resolved. Denies history of MRSA. Denies diaphoresis, N/V/D/C, GONZÁLES, dizziness, syncope, vision changes, neck pain, CP, SOB, orthopnea, palpitations, cough, choking, otalgia, rhinorrhea, abdominal pain, paresthesias, weakness, extremity weakness, extremity edema, other rashes, urinary symptoms. Pt reports up to date on vaccinations including MMR. Principal Diagnosis Patient left AGAINST MEDICAL ADVICE/ Left hospital artery this morning without notifying the nursing staff RT FACIAL CELLULITIS /MRSA ABSCESS /RIGHT EAR INFECTION /MRSA ABSCESS /SINUSITIS UNDERWENT I&D ( SURGICAL PROCEDURE TO CLEAN UP Discharge Exam Patient was not seen on day of discharge Patient left AGAINST MEDICAL ADVICE, Left hospital in early a.m. without notifying any nursing staff Discharge Data Allergies Allergy/AdvReac Type Severity Reaction Status Date / Time latex Allergy Unknown Verified 05/15/19 10:20 Bactrim AdvReac Unknown N/V, Verified 08/25/16 06:19 DIZZINESS Cipro AdvReac Unknown N/V, Verified 08/25/16 06:19 DIZZINESS ciprofloxacin AdvReac Unknown N/V, Verified 05/15/19 10:20 DIZZINESS morphine AdvReac Unknown HEADACHES Verified 05/15/19 10:20 oxycodone AdvReac Unknown nausea and Verified 05/15/19 10:20 vomiting sulfamethoxazole AdvReac Unknown N/V, Verified 05/15/19 10:20 DIZZINESS trimethoprim AdvReac Unknown N/V, Verified 05/15/19 10:20 DIZZINESS Consultations 05/16/19 11:45 ED Decision to Admit Stat 05/16/19 14:27 Consult Otolaryngology (Head and Neck) Routine Procedures Performed Operation Date: 05/17/19 07:00 Actual Procedures p Endoscopic Sinus Surgery, right and left frontal, right and left sphenoid, right and left total ethmoid, right and left maxillary; Right Facial Abscess Incision and Drainage; Bilateral Ear Cleaning, irrigation and debridement of right ear canal(Bilateral) - Ria Kang MD Operation Date: 05/17/19 13:00 <No data on this case meets the specified criteria> Ordered Studies 05/16/19 09:26 CT soft tissue neck w con Stat Hospital Course (1) Acute parotitis: Left AGAINST MEDICAL ADVICE Right facial cellulitis With right facial abscess with MRSA infection Presented with swelling, pain of right cheek area: CT of soft tissue neck with contrast: IMPRESSION: 1. Moderate subcutaneous and deep tissue edema of the right lateral cheek centered about the right parotid gland extending into the external auditory canal distribution. Findings are suggestive of acute parotiditis with associated otitis externa. No drainable fluid collection or discrete soft tissue mass. 2. Mild reactive adenopathy. 3. Trace fluid of the right middle ear cavity. Correlate clinically to exclude associated otitis media. She started empirically with IV Unasyn, vancomycin: Culture of right cheek/right ear canal: Staph aureus MRSA ENT evaluation requested, appreciate input, Status post incision and drainage of right cheek abscess/right external ear canal abscess on 05/17/19 pre op Diagnosis: Cellulitis of face; abscess of right face; right external ear canal abscess; chronic sinusitis and nasal polyposis Procedures Endoscopic Sinus Surgery, right and left frontal, right and left sphenoid, right and left total ethmoid, right and left maxillary; Right Facial Abscess Incision and Drainage; Bilateral Ear Cleaning, incision and drainage of abscess of right ear canal - By Dr. Kang Patient has been recovering very well post procedure, being in discomfort of right facial area markedly improved, has been afebrile Operative wound culture positive for staph aureus MRSA Antibiotic adjusted: IV vancomycin discontinued, Patient started on p.o. doxycycline will need total 10 days of treatment(she is allergic to Bactrim) (2) Otitis externa: Right otitis externa, with edema and purulent drainage noted on right ear canal status post IND Wound culture: MRSA staph aureus, started on p.o. doxycycline -Ofloxacin drops we will continue for 7 days -ENT consulted, appreciate input ACUTE SINUSITIS Status post: I&D of right facial abscess, bilateral ear cleaning, incision and drainage of abscess of right ear canal, endoscopic sinus surgery of right and left frontal, right and left sphenoidal, right and left total ethmoid and right and left maxillary sinuses (3) Asthma, intermittent: No current SOB or wheezing Has been out of Dulera and Singulair for couple of months -Continue albuterol as needed, will restart Singulair and Dulera (4) GERD (gastroesophageal reflux disease): -Continue PPI (5) Hypothyroidism: -Continue levothyroxine (6) Anxiety: (7) Depression: (8) ADHD (attention deficit hyperactivity disorder): -Continue Effexor, Lorazepam, Adderall (9) Tobacco use: Has stopped using cigarettes and now vaping -Vaping and smoking cessation discussed -Nicotine patch DVT Prophylaxis -SCDs DISPOSITION: Left AGAINST MEDICAL ADVICE Patient recovered well post procedure, antibiotic was changed to p.o. doxycycline yesterday 05/08/2018 Per ENT patient was medically stable to be discharged, outpatient follow-up with Dr. weeks Offered offered to discharge home patient, Complained was still having a lot of pain at the surgical site, right face, right ear, wanted to stay overnight for pain control, Plan was to be discharged home today 05/19/2019 Patient was not found in her room earlier this morning, All her belongings were gone, Security was called, Security camera shows patient left building through the main entrance at 7:15 AM Multiple call was placed to patient's cell phone by nursing staff, security and by myself Patient later returned back call, said she has to leave for a family emergency And did not bother to let nursing staff know Patient was advised, she should need to notify nursing staff She was supposed to be discharged home today could have been discharged earlier this morning, with discharge instructions and prescription for antibiotics Prescription for doxycycline sent to patient's pharmacy Patient is willing to come and 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-which included postoperative care for her abscess drainage of right face cellulitis, follow-up with ENT specialist Total Time Total Time Spent Total Time Spent (In Minutes): Approximate 45 minutes, that includes discharge planning medication reconciliation Patient was not present for physical exam: Left AGAINST MEDICAL ADVICE Discharge Plan Discharge Items Patient Disposition: Against Medical Advice Reason For Visit: R FACIAL SWELLING Discharge Diagnosis: RT FACIAL CELLULITIS /MRSA ABSCESS /RIGHT EAR INFECTION /MRSA ABSCESS /SINUSITIS UNDERWENT I&D ( SURGICAL PROCEDURE TO CLEAN UP Condition on Discharge: Good Activity: Resume your previous activity Non-emergency contact: Primary Care Provider Call non-emergency contact if: you have any medication questions Follow-up/Referrals: Abeba Pedro MD [Primary Care Provider] - 05/21/19 12:45 pm Diet: Regular Diet Texture: Dental soft (bite-sized) Addtl Attending Provider Instructions: PLEASE COMPLETE DOXYCYCLINE 100 MG TWICE DAILY FOR 10 DAYS -ANTIBIOTIC FOR YOU RT FACE /RT EAR [facility] FOLLOW UP WITH DR PEDRO Monday05/21/19 @ 12:[address] PEDRO'S OFFICE WITH ANY INCREASE PAIN , SWELLING OR FEVER FOLLOW UP WITH ENT DR KANG INSTRUCTED ACTIVITY RECOMMENDATIONS: * Being up and around is good, but no strenuous activity, heavy lifting or phy sical exertion for one week. * Keep your head elevated 30 degrees when lying down or sleeping. * Do not blow your nose for 48 hours, sniff back instead. * Avoid hot showers. OVER THE COUNTER MEDICATIONS: * You may use Tylenol * Avoid aspirin or aspirin containing products, e.g. as they may increase bleeding. SPECIAL CARE INSTRUCTIONS: * Expect to have bloody drainage from your nose and/or down your throat for one to three days. Change drip pad as needed. * Begin irrigating your nose with saline solution today, at least six to ten times per day and sniff back to help remove old clots or crust. * You may experience nasal and facial congestion, pain and pressure, this is normal. * Please call with any significant and/or progressive pain, redness, swelling around the eyes, visual changes, fever of 101.5 degrees F, active bleeding or any problems or concerns. * If active bleeding occurs, spray the nose three times at one minute intervals with Afrin spray and go to the nearest Emergency Department. Special Diet: * Avoid extremely hot fluids. CALL YOUR DOCTOR IF: For any non-urgent questions, call Dr. Harley office [phone] or the nursing unit where you were a patient. For urgent questions call Dr. Kang by cell phone which is [phone]. For emergencies go to the emergency room. Please go to the Emergency Room if you have fever (temperature greater than 100.5), chills, lightheadedness, shortness of breath, difficulty breathing, nausea, vomiting, numbness or tingling in your fingers, hands, or mouth, muscle spasms, or if you notice signs of wound infection (redness, tenderness, or drainage from the incision). Please also call or go to the Emergency Room if you have any other urgent concerns. FOLLOW UP VISIT: Follow-up visit with Dr. Kang in 2 weeks. Please call to schedule if not already scheduled. . Pending Studies at Discharge: No Stand-Alone Forms: [facility] Medications and DC Order Prescriptions: New doxycycline hyclate 100 mg Capsule 100 mg PO BID 10 Days Qty: 20 RF: 0 Continued Ciprodex 0.3-0.1 % drops,suspension 4 drops OT BID 7 Days Qty: 5 RF: 0 venlafaxine 75 mg capsule,extended release 24hr 75 mg PO QAM RF: 0 [id number]-[id number]-bggl 50-325-40 mg tablet 1 tab PO Q6 PRN (Reason: Migraine Headache) RF: 0 dextroamphetamine-amphetamine 20 mg tablet 20 mg PO BID RF: 0 levothyroxine 150 mcg tablet 150 mcg PO QAM RF: 0 gabapentin 300 mg capsule 300 mg PO TID RF: 0 lorazepam 1 mg tablet 1 mg PO TID PRN (Reason: Anxiety) RF: 0 albuterol sulfate 90 mcg/actuation HFA aerosol inhaler 2 puff inhalation Q6 PRN (Reason: Shortness Of Breath Or Wheezing) RF: 0 meloxicam 15 mg Tablet 15 mg PO DAILY PRN (Reason: Pain) RF: 0 omeprazole 40 mg Capsule,Delayed Release(Dr/Ec) 40 mg PO BID RF: 0 flunisolide 25 mcg (0.025 %) [place],Non-Aerosol 2 spray INTRANASAL BID PRN (Reason: Nasal Congestion) RF: 0 montelukast [Singulair] 10 mg Tablet 10 mg PO PM RF: 0 Dulera 100-5 mcg/actuation Hfa Aerosol Inhaler 2 puff INHALATION BID RF: 0 Discontinued amoxicillin-pot clavulanate [Augmentin] 875-125 mg tablet 1 tab PO BID Qty: 20 RF: 0 Discharge Orders: Left Against Medical Advice (Routine); Ordered 05/19/19 Ordered By: Catherine Bragg Admission Data Admit Date/Time: 05/17/19 08:52 Attending Provider: Catherine Bragg Admit Provider: Clayton Ortiz Primary Care Provider: Abeba Pedro Other Providers: Clayton Ortiz ; Ria Kang How Other Interventions: Discharge Summary Assessment (RN) Last Done: 05/19/19 08:15 DC Date/Time DO NOT enter until pt leaves facility: 05/19/19 08:15
== END 2019-05-19 08:15 | disposition left against medical advice (07) | DRG 135 ==
LOC: 3N 08:39 → ED 08:39 → SUATTDRO 13:26 → 3N 14:01

== ENCOUNTER 2021-06-12 11:58 | Inpatient (IN) ==
[2021-06-12] MEDS ORDERED: ALBUT/IPRATROP 3MG/0.5MG NEB 3 ML VIAL NEB ONE (12:55)
[2021-06-12] MEDS ORDERED: SODIUM CHLORIDE 0.9% 1000ML 1,000 ML IV ONE (12:55)
[2021-06-12] MEDS ORDERED: ONDANSETRON INJ 2 MG/ML 2 ML VIAL IV STA (12:55)
[2021-06-12] MEDS ORDERED: methylPREDNISolone 125 MG/2 ML VIAL IV STA (12:55)
--- NOTE | 2021-06-12 13:00 | Emergency Department Note ---
History of Present Illness General Chief complaint: Shortness of Breath/Dyspnea Stated complaint: SOB,NECK PAIN,SOUGH Time Seen by Provider: 06/12/21 12:49 Source: patient Mode of arrival: ambulatory Limitations: no limitations History of Present Illness This pain she comes in after having cough and shortness of breath. She does have a history of COPD she is using inhaler at home she was also seen overnight. The nurse came and got me as she had audible wheezing. She says she is been coughing with a dry hacking cough and also has a headache with this. She has had some nausea. No fall or trauma denies chest pain or abdominal pain. Denies fever Home Medications Medication Instructions Recorded Confirmed Type albuterol sulfate 90 mcg/actuation 2 puff INHALATION Q6 PRN 05/15/19 06/12/21 History aerosol inhaler acguhlzihp-hidtqhwxaascy-ddrvsgyy 1 tab PO Q6 PRN 05/15/19 06/12/21 History 50 mg-325 mg-40 mg tablet dextroamphetamine-amphetamine 20 20 mg PO BID 05/15/19 06/12/21 History mg tablet gabapentin 300 mg capsule 300 mg PO TID PRN 05/15/19 06/12/21 History levothyroxine 150 mcg tablet 150 mcg PO QAM 05/15/19 06/12/21 History lorazepam 1 mg tablet 1 mg PO TID PRN 05/15/19 06/12/21 History flunisolide 25 mcg (0.025 %) nasal 2 spray INTRANASAL BID PRN 05/16/19 06/12/21 History spray mometasone-formoterol HFA 100 2 puff INHALATION BID 05/16/19 06/12/21 History mcg-5 mcg/actuation aerosol inhaler (Dulera) montelukast 10 mg tablet 10 mg PO PM 05/16/19 06/12/21 History (Singulair) amoxicillin 875 mg-potassium 1 tab PO Q12H 10 Days #20 tab 06/08/21 06/12/21 Rx clavulanate 125 mg tablet (Augmentin) Allergies Allergy/AdvReac Type Severity Reaction Status Date / Time latex Allergy Unknown Verified 05/15/19 10:20 Bactrim AdvReac Unknown N/V, Verified 08/25/16 06:19 DIZZINESS Cipro AdvReac Unknown N/V, Verified 08/25/16 06:19 DIZZINESS ciprofloxacin AdvReac Unknown N/V, Verified 05/15/19 10:20 DIZZINESS morphine AdvReac Unknown HEADACHES Verified 05/15/19 10:20 oxycodone AdvReac Unknown nausea and Verified 05/15/19 10:20 vomiting sulfamethoxazole AdvReac Unknown N/V, Verified 05/15/19 10:20 DIZZINESS trimethoprim AdvReac Unknown N/V, Verified 05/15/19 10:20 DIZZINESS Past Med/Surg History Medical History ADHD (attention deficit hyperactivity disorder) Anxiety Asthma, intermittent Chronic sinusitis Depression GERD (gastroesophageal reflux disease) Hypothyroidism ITP (idiopathic thrombocytopenic purpura) Migraine Seizure disorder, simple partial Tobacco use Now vaping Surgical History History of back surgery S/P sinus surgery S/P tonsillectomy and adenoidectomy Family History Other Asthma No significant family history Thyroid disorder Social History Smoking Status: Current every day smoker Tobacco Type: Cigarettes Cigarettes Per Day: VAPES; Hx Alcohol Use: No Hx Substance Use: No Preferred Language: Irish Communication Ability: Effective 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: No Beliefs That Will Affect Care: None Current Living Situation: Significant Other Feels Safe at Home: Yes Assistive Devices: None Review of Systems A total of 10 systems reviewed and were otherwise negative Physical Exam Vital Signs Vital Signs - 24 hr 06/12/21 12:04 06/12/21 12:11 06/12/21 12:59 Temperature 36.4 C L Temperature Source Temporal Artery Scan Pulse Rate 64 Pulse Rate [Apical] Pulse Rhythm [Apical] Pulse Strength [Apical] Respiratory Rate 20 20 Respiratory Effort / Characteristics Non-Labored Labored Short of Breath Spontaneous Short of Breath Respiratory Depth Normal Respiratory Pattern Blood Pressure 161/90 H Blood Pressure [Left Arm] Blood Pressure Mean 113 Blood Pressure Mean [Left Arm] Blood Pressure Position [Left Arm] Pulse Oximetry 93 92 Oxygen Delivery Method Room Air Room Air Oxygen Flow Rate Sepsis Recent Fever Within 48 Hours No Sepsis New/Unexplained Change in Mental Status No Sepsis Action Taken by Nursing No Action Required 06/12/21 14:07 06/12/21 16:00 Temperature Temperature Source Pulse Rate Pulse Rate [Apical] 84 80 Pulse Rhythm [Apical] Regular Pulse Strength [Apical] Normal Respiratory Rate 20 16 Respiratory Effort / Characteristics Spontaneous Short of Breath Respiratory Depth Deep Respiratory Pattern Regular Blood Pressure Blood Pressure [Left Arm] 174/95 H 120/91 Blood Pressure Mean Blood Pressure Mean [Left Arm] 121 100 Blood Pressure Position [Left Arm] Semi-fowlers Pulse Oximetry 100 Oxygen Delivery Method Nebulizer Aerosol Mask Oxygen Flow Rate 7 2 Sepsis Recent Fever Within 48 Hours Sepsis New/Unexplained Change in Mental Status Sepsis Action Taken by Nursing General: Well developed well nourished moderately ill-appearing middle-aged female who is complained of a headache but has audible wheezes with mild increased work of breathing. Answering questions appropriately and mentating normally. Speaking full sentences. HEENT: Normal cephalic atraumatic. Pupils are equal round and reactive to light. Extraocular movements are intact. Oropharynx is pink with moist mucous membranes. No swelling of the mouth lips or tongue. Neck: Supple with a midline trachea. No meningeal signs or stiffness, no JVD or bruits. No Stridor. Chest: Wheezes to auscultation bilaterally. No wheezes or rhonchi. No increased work of breathing. Heart: Regular rate and rhythm without murmurs or gallops. Abdomen: Soft nontender, nondistended without rebound guarding or rigidity. Extremities: No cyanosis clubbing or edema. No calf tenderness or assymetry Spine/Back. Non tender to palpation. No CVA tenderness Skin: Good turgor without rashes. Neurologic exam: Cranial nerves two through 12 are intact. Motor and sensation are intact and symmetrical throughout. Course Administered Medications Methylprednisolone (Methylprednisolone 40 Mg/Ml Vial) 40 mg IV Q8H PASCUAL Stop: 07/12/21 17:03 Last Admin: 06/12/21 18:27 Dose: 40 mg Documented by: [id number] Discontinued Medications Albuterol (Albut/Ipratrop 3mg/0.5mg Neb 3 Ml Vial) 12 ml NEB ONE ONE Stop: 06/12/21 12:56 Last Admin: 06/12/21 12:58 Dose: 12 ml Documented by: [id number] Sodium Chloride (Nss 1000ml) 1,000 mls @ 999 mls/hr IV .Q1H1M ONE Stop: 06/12/21 13:55 Last Infusion: 06/12/21 14:24 Dose: 0 mls/hr Documented by: [id number] Admin: 06/12/21 13:24 Dose: 999 mls/hr Documented by: [id number] Methylprednisolone (Methylprednisolone 125 Mg/2 Ml Vial) 125 mg IV NOW STA Stop: 06/12/21 12:56 Last Admin: 06/12/21 13:24 Dose: 125 mg Documented by: [id number] Ondansetron HCl (Ondansetron Inj 2 Mg/Ml 2 Ml Vial) 4 mg IV NOW STA Stop: 06/12/21 12:56 Last Admin: 06/12/21 13:24 Dose: 4 mg Documented by: [id number] Medical Decision Making Differential Diagnosis COPD, asthma, CHF, intracranial process, dehydration, infection, pneumonia, sepsis Medical Records Attestation: I reviewed the patient's medical records. Home Medications Current Medication List: was personally reviewed by me Laboratory Data Attestation: I reviewed the patient's lab results. Result diagrams: 06/12/21 13:00 06/12/21 13:57 Lab Results 06/12/21 06/12/21 06/12/21 Range/Units 13:00 13:00 13:57 WBC 19.68 H (4.8-10.8) K/uL RBC 6.01 H (4.2-5.4) M/uL Hgb 17.1 H (12.0-16.0) g/dL Hct 52.9 H (37-47) % MCV 88.0 (80-100) fL MCH 28.5 (25-34) pg MCHC 32.3 (32-36) g/dL RDW Std Deviation 45.4 (36.4-46.3) fL RDW Coeff of Johanna 14.2 (11.5-14.5) % Plt Count 383 (130-400) K/uL MPV 9.4 (7.4-10.4) fL Immature Gran % (Auto) 0.3 % Neut % (Auto) 81.3 % Lymph % (Auto) 8.5 % [place] % (Auto) 4.2 % Eos % (Auto) 5.5 % Baso % (Auto) 0.2 % Neut # (Auto) 16.00 H (1.4-6.5) K/uL Lymph # (Auto) 1.68 (1.2-3.4) K/uL [place] # (Auto) 0.82 H (0.11-0.59) K/uL Eos # (Auto) 1.08 H (0-0.5) K/uL Baso # (Auto) 0.04 (0-0.2) K/uL Immature Gran # (Auto) 0.06 H (0.00-0.02) K/uL Sodium 138 (136-145) mmol/L Potassium 4.6 D (3.5-5.1) mmol/L Chloride 106 (98-107) mmol/L Carbon Dioxide 28 (21-32) mmol/L Anion Gap 4.0 (3-11) BUN 16 (7-18) mg/dl Creatinine 1.08 (0.6-1.2) mg/dl Est Cr Clr Drug Dosing Not Reportable Est GFR ( Amer) 67.4 ml/min Est GFR (Non-Af Amer) 58.2 ml/min BUN/Creatinine Ratio 15.2 (10-20) Glucose 108 H (70-99) mg/dl Calcium 9.9 (8.5-10.1) mg/dl Magnesium 2.2 (1.8-2.4) mg/dl Total Bilirubin 0.3 (0.2-1) mg/dl AST 45 H (15-37) U/L ALT 60 (12-78) U/L Alkaline Phosphatase 107 (45-117) U/L Troponin I < 0.015 (0-0.045) ng/ml Total Protein 8.2 (6.4-8.2) gm/dl Albumin 3.8 (3.4-5.0) gm/dl Globulin 4.4 H (2.5-4.0) gm/dl Albumin/Globulin Ratio 0.9 (0.9-2) COVID-19 Eval Order SARS-CoV-2 (PCR) (Negative) 06/12/21 06/12/21 Range/Units 14:13 14:13 WBC (4.8-10.8) K/uL RBC (4.2-5.4) M/uL Hgb (12.0-16.0) g/dL Hct (37-47) % MCV (80-100) fL MCH (25-34) pg MCHC (32-36) g/dL RDW Std Deviation (36.4-46.3) fL RDW Coeff of Johanna (11.5-14.5) % Plt Count (130-400) K/uL MPV (7.4-10.4) fL Immature Gran % (Auto) % Neut % (Auto) % Lymph % (Auto) % [place] % (Auto) % Eos % (Auto) % Baso % (Auto) % Neut # (Auto) (1.4-6.5) K/uL Lymph # (Auto) (1.2-3.4) K/uL [place] # (Auto) (0.11-0.59) K/uL Eos # (Auto) (0-0.5) K/uL Baso # (Auto) (0-0.2) K/uL Immature Gran # (Auto) (0.00-0.02) K/uL Sodium (136-145) mmol/L Potassium (3.5-5.1) mmol/L Chloride (98-107) mmol/L Carbon Dioxide (21-32) mmol/L Anion Gap (3-11) BUN (7-18) mg/dl Creatinine (0.6-1.2) mg/dl Est Cr Clr Drug Dosing Est GFR ( Amer) ml/min Est GFR (Non-Af Amer) ml/min BUN/Creatinine Ratio (10-20) Glucose (70-99) mg/dl Calcium (8.5-10.1) mg/dl Magnesium (1.8-2.4) mg/dl Total Bilirubin (0.2-1) mg/dl AST (15-37) U/L ALT (12-78) U/L Alkaline Phosphatase (45-117) U/L Troponin I (0-0.045) ng/ml Total Protein (6.4-8.2) gm/dl Albumin (3.4-5.0) gm/dl Globulin (2.5-4.0) gm/dl Albumin/Globulin Ratio (0.9-2) COVID-19 Eval Order Covid19 at [facility] SARS-CoV-2 (PCR) NEGATIVE (Negative) Imaging Data Attestation: I personally reviewed and interpreted this imaging study as follow s: My Impression: Chest x-rayno acute infiltrate, failure, pneumothorax seen Radiologist's Impression: Chest X-Ray 06/12/21 12:11 XR chest 1V portable CLINICAL HISTORY: SOB. COMPARISON STUDY: 06/10/2021 TECHNIQUE: 1 view of the chest FINDINGS: Single frontal view of the chest demonstrates the cardiomediastinal silhouette to be within normal limits. The lungs are clear of alveolar opacities. There is no evidence for pleural effusion. There is no evidence for vascular congestion. There is no acute osseous pathology. IMPRESSION: No acute cardiopulmonary disease. ACT 112: Negative or not required by law. Electronically signed by: Ghassan Nogueira M.D. 06/12/2021 1:23 PM ECG Data Attestation: I personally reviewed and interpreted this ECG as follows: Indication: + SOB/dyspnea Rate (beats per minute): 60 Rhythm: + normal sinus ECG Intervals/blocks: + Normal QRS, + Normal QT and + Normal [place] ECG [place]: + Left axis deviation ECG ST segments: + Normal ST segments ECG Findings: + Other (Anterior T wave inversions) Comparison ECG Date: from (06/07/21) Change: the following changes noted (Anterior T wave versions were present on the old EKG but may be slightly more pronounced on present EKG) Additional Comments: EKG #2: Normal sinus rhythm with sinus arrhythmia. Left axis deviation anterior T wave abnormalities unchanged compared EKG #1 MDM Narrative This patient comes in as described above. The nurse came and got me if she is concerned that she had some audible wheezing. I did go immediately evaluate her respiratory is at the bedside. She she does have wheezing and we did order a DuoNeb over an hour. She was given Solu-Medrol 125 mg IV and IV fluids chest x- ray multiple blood testing was obtained. She was given Zofran for nausea as per request as well. She was reassessed frequently. With the hour-long neb she felt a lot better and she looks well her tachypnea resolved she still has audible wheezing. She was complained of a headache initially but said that got better as well. Reviewing her chart she did have a CAT scan a couple days ago which showed sinus disease and needed placed on antibiotic. Maia EKG does show some T wave inversions however they were on previous and her troponin is negative and she has had no chest pain I do not think is likely a PE. Given that it is her third visit here and she was significantly short of breath with continued wheezing I do think she should be admitted for observation and further evaluation. I have consulted the [facility] hospitalist to see her in for these measures. 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 Upon my interpretation she was noted to be normal sinus rhythm with a rate of 65 Impression & Plan Asthma exacerbation, Diffuse wheezing, Lab test negative for COVID-19 virus, Headache Discharge Plan Visit Data Chief Complaint: Shortness of Breath/Dyspnea Stated Complaint: SOB,NECK PAIN,SOUGH ED Provider: Eugene Bowman Discharge Problem: Asthma exacerbation, Diffuse wheezing, Lab test negative for COVID-19 virus, Headache Discharge Instructions Interventions: ED Discharge Assessment Last Done: 06/12/21 18:57 Discharge Problem: Asthma exacerbation Qualifiers: Asthma severity: moderate Asthma persistence: unspecified Qualified Code(s): J45.901 - Unspecified asthma with (acute) exacerbation Headache Qualifiers: Headache type: unspecified Headache chronicity pattern: unspecified pattern Intractability: not intractable Qualified Code(s): R51.9 - Headache, unspecified
[2021-06-12 13:14] LABS: Basophils # (auto) 0.04 K/uL (0-0.2); Basophils % (auto) 0.2 %; Eosinophils # (auto) 1.08 K/uL (0-0.5); Eosinophils % (auto) 5.5 %; Hematocrit (blood only) 52.9 % (37-47); Hemoglobin 17.1 g/dL (12.0-16.0); Immature Granulocytes # (auto) 0.06 K/uL (0.00-0.02); Immature Granulocytes % (auto) 0.3 %; Lymphocytes # (auto) 1.68 K/uL (1.2-3.4); Lymphocytes % (auto) 8.5 %; Mean Corpuscular Hemoglobin 28.5 pg (25-34); Mean Corpuscular Hgb Conc 32.3 g/dL (32-36); Mean Platelet Volume 9.4 fL (7.4-10.4); Monocytes # (auto) 0.82 K/uL (0.11-0.59); Monocytes % (auto) 4.2 %; Neutrophils % (auto) 81.3 %; Platelet Count 383 K/uL (130-400); RDW Coefficient of Variation 14.2 % (11.5-14.5); RDW Standard Deviation 45.4 fL (36.4-46.3); Red Blood Count 6.01 M/uL (4.2-5.4); White Blood Count 19.68 K/uL (4.8-10.8)
--- NOTE | 2021-06-12 13:24 | XRay Report ---
XR chest 1V portable CLINICAL HISTORY: SOB. COMPARISON STUDY: 06/10/2021 TECHNIQUE: 1 view of the chest FINDINGS: Single frontal view of the chest demonstrates the cardiomediastinal silhouette to be within normal li mits. The lungs are clear of alveolar opacities. There is no evidence for pleural effusion. There is no evidence for vascular congestion. There is no acute osseous pathology. IMPRESSION: No acute cardiopulmonary disease. ACT 112: Negative or not required by law. Electronically signed by: Ghassan Nogueira M.D. 06/12/2021 1:23 PM
[2021-06-12 13:44] LABS: Alanine Aminotransferase 60 U/L (12-78); Albumin Globulin Ratio 0.9 (0.9-2); Albumin Level 3.8 gm/dl (3.4-5.0); Alkaline Phosphatase 107 U/L (45-117); BUN Creatinine Ratio 15.2 (10-20); Bilirubin,Total 0.3 mg/dl (0.2-1); Blood Urea Nitrogen 16 mg/dl (7-18); Calcium 9.9 mg/dl (8.5-10.1); Carbon Dioxide 28 mmol/L (21-32); Chloride 106 mmol/L (98-107); Est GFR (African American) 67.4 ml/min; Est GFR (Non-African American) 58.2 ml/min; Globulin 4.4 gm/dl (2.5-4.0); Glucose 108 mg/dl (70-99); Sodium 138 mmol/L (136-145); Total Protein 8.2 gm/dl (6.4-8.2); Troponin I < 0.015 ng/ml (0-0.045)
[2021-06-12 13:54] LABS: Partial Thromboplastin Time 25.9 Seconds (21.0-31.0); Prothrombin Time 9.9 Seconds (9.0-12.0)
[2021-06-12 15:17] LABS: Magnesium 2.2 mg/dl (1.8-2.4); Potassium 4.6 mmol/L (3.5-5.1)
--- NOTE | 2021-06-12 16:04 | History & Physical Report ---
Date of Service June 12, 2021 Assessment & Plan (1) Asthma, intermittent: Plan: Acute Asthma Exacerbation CXR:No acute cardiopulmonary disease. Started IV solumedrol, bronchodilators Oxygen support per protocol Continue Augmentin which was recently started for sinusitis Continue home inhalers Consider pulmonary evaluation if needed Continue Singulair Leukocytosis No obvious source of infection currently Obtain urine analysis, blood culture, procalcitonin, lactate levels Further management based on results On Augmentin for sinusitis Weight loss H/O vaginal bleed States having lost about 30 pounds in 2 months No loss of appetite Will need INSTRUCTIONAL DESIGN TECHNOLOGIST evaluation eventually Will consult INSTRUCTIONAL DESIGN TECHNOLOGIST if recurrence of vaginal bleed while inpatient Migraine No improvement with Imitrex previously as per patient Continue Fioricet as needed Hypothyroidism Continue levothyroxine Check TSH ADHD Continue home medications Depression TARIK Previously on venlafaxine States her mother expires due to COVID ~ 6 months ago Patient currently not taking venlafaxine Ativan PRN Consider Psych eval if needed DVT Px: Lovenox SQ Code Status Full Code History of Present Illness Chief Complaint: Dyspnea Primary Care Provider: Mychal Da Silva MD Patient is a 55-year-old female with history of hypothyroidism, asthma, GERD, migraine, depression, generalized anxiety disorder, ADHD and other medical problems presents with history of worsening cough, shortness of breath associated with chest tightness since 10 days duration. Patient states that she has been using her rescue inhaler more frequently than she should. She also states having wheezing since about 10 days as well. Cough is nonproductive. She admits to having nausea but denies any vomiting. Also states having migraine headaches which she feels bandlike sensation which improves with pain medication. She reports that she was recently started on Augmentin for sinus infection. Patient is a poor historian. She was evaluated in ED few days ago for vaginal bleed. She admits to being homeless for the last couple of years. Also states having lost about 30 pounds in last 2 months but denies any loss of appetite. Denies any history of palpitations, dizziness, pedal edema, hemoptysis, fever, chills, change in vision, abdominal pain, blood in stools, diarrhea, dysuria, hematuria. She admits to continue to smoke about half pack per day currently. Allergies Allergy/AdvReac Type Severity Reaction Status Date / Time latex Allergy Unknown Verified 05/15/19 10:20 Bactrim AdvReac Unknown N/V, Verified 08/25/16 06:19 DIZZINESS Cipro AdvReac Unknown N/V, Verified 08/25/16 06:19 DIZZINESS ciprofloxacin AdvReac Unknown N/V, Verified 05/15/19 10:20 DIZZINESS morphine AdvReac Unknown HEADACHES Verified 05/15/19 10:20 oxycodone AdvReac Unknown nausea and Verified 05/15/19 10:20 vomiting sulfamethoxazole AdvReac Unknown N/V, Verified 05/15/19 10:20 DIZZINESS trimethoprim AdvReac Unknown N/V, Verified 05/15/19 10:20 DIZZINESS Home Medications Medication Instructions Recorded Confirmed Type albuterol sulfate 90 mcg/actuation 2 puff INHALATION Q6 PRN 05/15/19 06/12/21 History aerosol inhaler dihwhpuufq-huqjxytgjrwwt-llisjlfo 1 tab PO Q6 PRN 05/15/19 06/12/21 History 50 mg-325 mg-40 mg tablet dextroamphetamine-amphetamine 20 20 mg PO BID 05/15/19 06/12/21 History mg tablet gabapentin 300 mg capsule 300 mg PO TID PRN 05/15/19 06/12/21 History levothyroxine 150 mcg tablet 150 mcg PO QAM 05/15/19 06/12/21 History lorazepam 1 mg tablet 1 mg PO TID PRN 05/15/19 06/12/21 History flunisolide 25 mcg (0.025 %) nasal 2 spray INTRANASAL BID PRN 05/16/19 06/12/21 History spray mometasone-formoterol HFA 100 2 puff INHALATION BID 05/16/19 06/12/21 History mcg-5 mcg/actuation aerosol inhaler (Dulera) montelukast 10 mg tablet 10 mg PO PM 05/16/19 06/12/21 History (Singulair) amoxicillin 875 mg-potassium 1 tab PO Q12H 10 Days #20 tab 06/08/21 06/12/21 Rx clavulanate 125 mg tablet (Augmentin) Past Med/Surg History Medical History ADHD (attention deficit hyperactivity disorder) Anxiety Asthma, intermittent Chronic sinusitis Depression GERD (gastroesophageal reflux disease) Hypothyroidism ITP (idiopathic thrombocytopenic purpura) Migraine Seizure disorder, simple partial Tobacco use Now vaping Surgical History History of back surgery S/P sinus surgery S/P tonsillectomy and adenoidectomy Family History Other Asthma No significant family history Thyroid disorder Social History Smoking Status: Current every day smoker Tobacco Type: Cigarettes Cigarettes Per Day: VAPES; Hx Alcohol Use: No Hx Substance Use: No Preferred Language: Romanian Communication Ability: Effective Transit Worker Required: No Beliefs That Will Affect Care: None Current Living Situation: Significant Other Feels Safe at Home: Yes Assistive Devices: None Review of Systems Review of Systems: All systems reviewed & are unremarkable except as noted in Subjective Physical Exam Physical Exam: Physical Exam: Vitals signs as noted above General Appearance:Moderately built and nourished, no apparent distress Head: normocephalic, Atraumatic Eyes: normal inspection, EOMI Neck: supple, Trachea midline Respiratory/Chest: Decreased breath sounds, B/L + rhonchi, wheezes, No accessory muscle use Cardiovascular: S1, S2, No murmur Abdomen/GI:Soft, Non tender, Bowel sounds present Extremities/Musculoskeletal:normal inspection, no edema Neurologic/Psych:AAOX3, grossly no focal neurological deficits Skin: normal color, warm Results & Data Results & Data ([facility]) Vital Signs (Past 12 Hours) Vital Signs Temp Pulse Pulse Resp BP BP Pulse Ox 06/12/21 14:07 84 20 174/95 H 100 06/12/21 12:59 20 92 06/12/21 12:04 36.4 C L 64 20 161/90 H 93 Laboratory Results Short CBC 06/12/21 Range/Units 13:00 WBC 19.68 H (4.8-10.8) K/uL Hgb 17.1 H (12.0-16.0) g/dL Hct 52.9 H (37-47) % Plt Count 383 (130-400) K/uL BMP 06/12/21 06/12/21 13:00 13:57 Sodium 138 Potassium 4.6 D Chloride 106 Carbon Dioxide 28 BUN 16 Creatinine 1.08 Glucose 108 H Calcium 9.9 Cardiac Enzymes 06/12/21 Range/Units 13:00 Troponin I < 0.015 (0-0.045) ng/ml Liver Function 06/12/21 06/12/21 Range/Units 13:00 13:57 Total Bilirubin 0.3 (0.2-1) mg/dl AST 45 H (15-37) U/L ALT 60 (12-78) U/L Alkaline Phosphatase 107 (45-117) U/L Albumin 3.8 (3.4-5.0) gm/dl Diagnostic Findings CXR:No acute cardiopulmonary disease. (1) Asthma, intermittent Asthma complication type: with acute exacerbation Asthma severity: mild Qualified Code(s): J45.21 - Mild intermittent asthma with (acute) exacerbation
[2021-06-12] MEDS ORDERED: BUTALBITAL/ACETAMIN/CAFFEINE TAB PO PRN (19:06)
[2021-06-12] MEDS ORDERED: POLYETHYLENE (MIRALAX) 17 GM PACK PO PRN (19:06)
[2021-06-12] MEDS ORDERED: GABAPENTIN 300 MG CAP PO PRN (19:06)
[2021-06-12] MEDS: ONDANSETRON INJ 2 MG/ML 2 ML VIAL IV PRN (19:35)
[2021-06-12] MEDS: ACETAMINOPHEN 325 MG TAB PO PRN (19:37)
[2021-06-12] MEDS: SODIUM CHLORIDE 0.9% 1000ML 1,000 ML IV SCH (19:42)
[2021-06-12] MEDS: ALBUT/IPRATROP 3MG/0.5MG NEB 3 ML VIAL NEB SCH ×2 (20:08→22:59)
[2021-06-12] MEDS: NICOTINE 14 MG/24 HR PATCH TD SCH ×2 (20:48→20:52)
[2021-06-12] MEDS: AMOXICILLIN/CLAVULANATE 875 MG TAB PO SCH (20:49)
[2021-06-12] MEDS: ENOXAPARIN INJ 40 MG/0.4 ML SYR SQ SCH (20:53)
[2021-06-12] MEDS: MONTELUKAST SODIUM 10 MG TABLET PO SCH (22:57)
[2021-06-12 23:14] LABS: Appearance Urine Clear (Clear); Bilirubin Urine Negative (Negative); Blood Urine Negative (Negative); Color Urine Yellow; Glucose Urine UA Trace (Negative); Ketones Urine Negative (Negative); Leukocyte Esterase Urine Negative (Negative); Nitrite Urine Negative (Negative); Protein Urine Negative (Negative); Urobilinogen Urine Negative (Negative)
[2021-06-13] MEDS ORDERED: KETOROLAC TROMETHAMINE 15 MG/ML VIAL IV ONE ×3 (00:07→09:30)
[2021-06-13] MEDS: AMPHETAMINE ASP/SULF/DEXTRAMPH 20 MG TAB PO SCH ×2 (02:29→09:20)
[2021-06-13] MEDS ORDERED: methylPREDNISolone 40 MG in SYRINGE 0 ML IV ONE (04:00)
[2021-06-13] MEDS: SODIUM CHLORIDE 0.9% 1000ML 1,000 ML IV SCH (04:18)
[2021-06-13] MEDS: FLUTICASONE/VILANTEROL 200/25MCG 14 PUFFS/INHALER INH SCH ×2 (04:19→20:14)
[2021-06-13] MEDS: ACETAMINOPHEN 325 MG TAB PO PRN (05:03)
[2021-06-13 06:24] LABS: Basophils # (auto) 0.01 K/uL (0-0.2); Eosinophils # (auto) 0.02 K/uL (0-0.5); Eosinophils % (auto) 0.1 %; Hematocrit (blood only) 44.5 % (37-47); Hemoglobin 14.4 g/dL (12.0-16.0); Immature Granulocytes # (auto) 0.04 K/uL (0.00-0.02); Immature Granulocytes % (auto) 0.2 %; Lymphocytes # (auto) 1.15 K/uL (1.2-3.4); Lymphocytes % (auto) 5.7 %; Mean Corpuscular Hemoglobin 28.6 pg (25-34); Mean Corpuscular Hgb Conc 32.4 g/dL (32-36); Mean Corpuscular Volume 88.5 fL (80-100); Mean Platelet Volume 9.3 fL (7.4-10.4); Neutrophils # (auto) 18.04 K/uL (1.4-6.5); Platelet Count 348 K/uL (130-400); RDW Coefficient of Variation 14.3 % (11.5-14.5); RDW Standard Deviation 46.5 fL (36.4-46.3); Red Blood Count 5.03 M/uL (4.2-5.4); White Blood Count 20.06 K/uL (4.8-10.8)
[2021-06-13] MEDS: ONDANSETRON INJ 2 MG/ML 2 ML VIAL IV PRN (06:25)
[2021-06-13] MEDS: LEVOTHYROXINE SODIUM 150 MCG TABLET PO SCH (06:48)
[2021-06-13 06:56] LABS: BUN Creatinine Ratio 15.3 (10-20); Calcium 9.7 mg/dl (8.5-10.1); Creatinine Clr Calc Pharmacy 73.3 ml/min; Est GFR (African American) 98.4 ml/min; Est GFR (Non-African American) 84.9 ml/min; Magnesium 2.5 mg/dl (1.8-2.4); Potassium 4.8 mmol/L (3.5-5.1)
[2021-06-13 07:06] LABS: Thyroid Stimulating Hormone 23.5 uIu/ml (0.300-4.500)
[2021-06-13 07:18] LABS: T4 Free Thyroxine 0.21 ng/dl (0.8-1.6)
[2021-06-13] MEDS: ALBUT/IPRATROP 3MG/0.5MG NEB 3 ML VIAL NEB SCH ×4 (07:54→19:14)
[2021-06-13] MEDS: LORazepam 1 MG TAB PO PRN ×2 (09:20→20:15)
[2021-06-13] MEDS: AMOXICILLIN/CLAVULANATE 875 MG TAB PO SCH ×2 (09:21→17:44)
[2021-06-13] MEDS ORDERED: GABAPENTIN 300 MG CAP PO ONE (09:23)
[2021-06-13] MEDS ORDERED: VITAMIN B COMPLEX TAB PO ONE (09:24)
[2021-06-13] MEDS ORDERED: MAGNESIUM OXIDE 400 MG TAB PO ONE (09:24)
[2021-06-13] MEDS: methylPREDNISolone 40 MG in SYRINGE 0 ML IV SCH ×2 (12:05→20:14)
[2021-06-13] MEDS: ENOXAPARIN INJ 40 MG/0.4 ML SYR SQ SCH (12:06)
--- NOTE | 2021-06-13 12:42 | Hospitalist Progress Note ---
Date of Service June 13, 2021 Assessment & Plan (1) Asthma exacerbation: Plan: Acute Asthma Exacerbation CXR:No acute cardiopulmonary disease. Started IV solumedrol, bronchodilators Oxygen support per protocol Continue Augmentin which was recently started for sinusitis Continue home inhalers Consider pulmonary evaluation if needed Continue Singulair per home regimen. (2) Status migrainosus: Plan: Takes fioricet as abortive therapy at home, doesn't follow with neurology regularly. Trials of fioricet, complex vitamin B (riboflavin not on formulary), gabapentin 300mg, Toradol this am unsuccessful. OMT then provided, suboccipital inhibition, craniosacral therapy. Patient asked for pain medication one hour later. Provided Imitrex and naproxen together. Continue IVF, cont to hydrate. (3) Sinusitis: Plan: Complete Augmentin regimen started as outpatient. Sinus disease is related to migraines in past per patient. (4) Leukocytosis: Plan: Likely related to steroid use. Afebrile and doesn't appear to have an acute infection. Ongoing augmentin started as outpatient for recent sinusitis. (5) Hypothyroidism: Plan: Cont Synthroid 150mcg daily per home regimen. Follow-up closely with outpatient provider for TFTs monthly. Per outpatient record review, she was noncompliant with Synthroid last year resulting in a TSH and profound hypothyroid state. She was then compliant and recently found to have symptomatic hyperthyroidism with an undetectable TSH at OSH. For this reason she stopped her Synthroid completely and now on admission here has a TSH 23. 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 Continuing this now and will discuss dosing with her PCP as 150 may just be too much. Noted patient reports 30 lb weight loss in last couple of months. (6) ADHD: Plan: On Adderall 20mg BID, this is a terrible drug for headaches. She is notably also taking Lorazepam 1mg up to three times daily and fioricet. Decreasing Adderall to 20mg once daily. (7) Depression: Plan: Per my review of her [facility] outpatient records, she is taking Buspar, Mobic, Effexor regularly which she is not taking here. Will discuss with her in am and restart if she is taking these. She also has an emotional support animal that she would like to bring into the hospital. Will let nursing staff know this to discuss logistics. (8) Tobacco use: Plan: vaping. Nicotine patch provided. (9) DVT prophylaxis: Plan: Lovenox Full Code Dispo-uncertain, pending resolution of migraine and improvement in breathing. If no improvement in headache will consider formal neurology consultation to assist with management. [facility] Admission and Anticipated Discharge Date Admission Date: June 12, 2021 Subjective 55 yo F admitted with acute SOB and severe ongoing headache. Known chronic sinus disease. ongoing headache, very upset this morning because of severe pain in her head frontal headache that radiated to back of neck lost mother 6 months ago due to covid on BID amphetamines chronic migraine history without aura uses fioricet at home. multiple ER visits recently for same issues. Review of Systems Review of Systems: All systems were reviewed and negative except for subjective. Physical Exam Physical Exam: CONSTITUTIONAL: WNWD, vitals as above, generally well- appearing, NAD EYES: normal conjunctivae, no scleral icterus, ENT: external ear and nose normal, MMM NECK: trachea midline RESPIRATORY: clear to auscultation bilaterally, no crackles, rales or wheezes, normal respiratory effort CARDIOVASCULAR: regular rate and rhythm, S1 and 2 heard without murmurs, gallops or rubs, no JVD, no peripheral edema GASTROINTESTINAL: soft, nontender, ND, no guarding MUSCULOSKELETAL: strength 5/5 throughout, head is normocephalic and atraumatic, neck supple, normal palpation of chest wall without tenderness SKIN: warm and dry, no rashes NEUROLOGIC: No facial palsy, no dysarthria. CN 2-12 grossly intact, no sensory deficit, normal cognition, normal speech, no tremor, no gross focal deficits. PSYCHIATRIC: alert cooperative and oriented to person, place and time. Results & Data Results & Data ([facility]) Vital Signs (Past 12 Hours) Vital Signs Temp Pulse Pulse Resp BP BP Pulse Ox 06/13/21 12:06 76 18 97 06/13/21 11:32 37 C 89 18 128/77 91 06/13/21 07:22 36.8 C 70 18 109/70 99 06/13/21 06:16 74 06/13/21 04:51 36.4 C L 84 18 116/82 96 06/13/21 02:48 36.5 C 88 16 96/63 L 92 Laboratory Results Short CBC 06/12/21 06/13/21 Range/Units 13:00 06:04 WBC 19.68 H 20.06 H (4.8-10.8) K/uL Hgb 17.1 H 14.4 (12.0-16.0) g/dL Hct 52.9 H 44.5 (37-47) % Plt Count 383 348 (130-400) K/uL BMP 06/12/21 06/12/21 06/13/21 13:00 13:57 06:04 Sodium 138 138 Potassium 4.6 D 4.8 Chloride 106 106 Carbon Dioxide 28 31 BUN 16 12 Creatinine 1.08 0.79 Glucose 108 H 115 H Calcium 9.9 9.7 Cardiac Enzymes 06/12/21 Range/Units 13:00 Troponin I < 0.015 (0-0.045) ng/ml Liver Function 06/12/21 06/12/21 Range/Units 13:00 13:57 Total Bilirubin 0.3 (0.2-1) mg/dl AST 45 H (15-37) U/L ALT 60 (12-78) U/L Alkaline Phosphatase 107 (45-117) U/L Albumin 3.8 (3.4-5.0) gm/dl Urine 06/12/21 Range/Units 23:05 Urine Color Yellow Urine Appearance Clear (Clear) Urine pH 5.0 (4.5-7.5) Ur Specific [place] 1.020 (1.000-1.030) Urine Protein Negative (Negative) Urine Glucose (UA) Trace H (Negative) Diagnostic Findings Brain MRI 06/13/21 13:11 MR brain wo con CLINICAL HISTORY: severe headache TECHNIQUE: Multiplanar and multisequence MR images of the brain were obtained without intravenous contrast. Comparison: Comparison is made to MRI brain 12/19/2014 FINDINGS: No abnormal restricted diffusion is identified. The white matter is unremarkable. The ventricular system is normal in appearance. No extra axial fluid collections are seen. There are no masses, mass effect, or midline shift. The corpus callosum, pituitary gland, and cerebellar tonsils appear grossly unremarkable. Flow voids of the major intracranial arterial vessels are identified. Soft tissue thickening of the left frontal, ethmoid, and maxillary sinuses noted. IMPRESSION: Left sinus disease. Otherwise no acute abnormality. ACT 112: Negative or not required by law. Electronically signed by: Pravin Aguirre M.D. 06/13/2021 5:43 PM Medications Administered Current Inpatient Medications Acetaminophen (Acetaminophen 325 Mg Tab) 650 mg PO Q4H PRN PRN Reason: pain/fever Stop: 07/12/21 19:05 Last Admin: 06/13/21 05:03 Dose: 650 mg Documented by: Acetaminophen/Butalbital/Caffeine (Butalbital/Acetamin/Caffeine Tab) 1 tab PO Q6H PRN PRN Reason: Migraine Headache Stop: 07/12/21 19:05 Last Admin: 06/13/21 05:14 Dose: 1 tab Documented by: Albuterol (Albut/Ipratrop 3mg/0.5mg Neb 3 Ml Vial) 3 ml NEB QIDR PASCUAL Stop: 07/12/21 19:05 Last Admin: 06/13/21 12:06 Dose: 3 ml Documented by: Amoxicillin/Clavulanate Potassium (Amoxicillin/Clavulanate 875 Mg Tab) 1 tab PO BIDM [facility]; Protocol Stop: 06/19/21 19:59 Last Admin: 06/13/21 09:21 Dose: 1 tab Documented by: Amphetamine/Dextroamphetamine (Amphetamine Asp/Sulf/Dextramph 20 Mg Tab) 20 mg PO BID PASCUAL Stop: 06/26/21 20:59 Last Admin: 06/13/21 09:20 Dose: 20 mg Documented by: Enoxaparin Sodium (Enoxaparin Inj 40 Mg/0.4 Ml Syr) 40 mg SQ QAM PASCUAL Stop: 07/12/21 19:59 Last Admin: 06/13/21 12:06 Dose: Not Given Documented by: Fluticasone/Vilanterol (Fluticasone/Vilanterol 200/25mcg 14 Puffs/Inhaler) 1 puffs INH HS [facility]; Protocol Stop: 07/12/21 20:59 Last Admin: 06/13/21 04:19 Dose: Not Given Documented by: Gabapentin (Gabapentin 300 Mg Cap) 300 mg PO TID PRN PRN Reason: Pain Stop: 07/12/21 19:05 Last Admin: 06/12/21 20:55 Dose: 300 mg Documented by: Methylprednisolone 40 mg/ (Syringe) 0.64 mls @ 1.5 mls/min IV Q8H PASCUAL Stop: 07/13/21 11:59 Last Admin: 06/13/21 12:05 Dose: 1.5 mls/min Documented by: Levothyroxine Sodium (Levothyroxine Sodium 150 Mcg Tablet) 150 mcg PO DAILYBB [facility] Stop: 07/13/21 06:29 Last Admin: 06/13/21 06:48 Dose: 150 mcg Documented by: Lorazepam (Lorazepam 1 Mg Tab) 1 mg PO TID PRN PRN Reason: Anxiety Stop: 07/12/21 19:24 Last Admin: 06/13/21 09:20 Dose: 1 mg Documented by: Miscellaneous (Remove Nicoderm Patch) 1 ea N/A DAILY@0859 [facility] Stop: 07/12/21 19:58 Last Admin: 06/13/21 10:45 Dose: 1 ea Documented by: Montelukast Sodium (Montelukast Sodium 10 Mg Tablet) 10 mg PO PM [facility] Stop: 07/12/21 20:59 Last Admin: 06/12/21 22:57 Dose: 10 mg Documented by: Nicotine (Nicotine 14 Mg/24 Hr Patch) 14 mg TD QAM [facility] Stop: 07/12/21 19:59 Last Admin: 06/12/21 20:52 Dose: 14 mg Documented by: Ondansetron HCl (Ondansetron Inj 2 Mg/Ml 2 Ml Vial) 4 mg IV Q6H PRN PRN Reason: Nausea Stop: 07/12/21 19:05 Last Admin: 06/13/21 06:25 Dose: 4 mg Documented by: Polyethylene Glycol (Polyethylene (Miralax) 17 Gm Pack) 17 gm PO DAILY PRN PRN Reason: Constipation Stop: 07/12/21 19:05 (1) Asthma exacerbation Asthma persistence: unspecified Asthma severity: moderate Qualified Code(s): J45.901 - Unspecified asthma with (acute) exacerbation (2) Leukocytosis Leukocytosis type: unspecified Qualified Code(s): D72.829 - Elevated white blood cell count, unspecified (3) Sinusitis Chronicity: acute Recurrence: not specified as recurrent Sinusitis location: maxillary Qualified Code(s): J01.00 - Acute maxillary sinusitis, unspecified
[2021-06-13] MEDS ORDERED: SUMAtriptan succinate 6 MG/0.5 ML VIAL SQ STA (13:05)
[2021-06-13] MEDS ORDERED: NAPROXEN 250 MG TAB PO STA (13:09)
--- NOTE | 2021-06-13 17:44 | Magnetic Resonance Report ---
MR brain wo con CLINICAL HISTORY: severe headache TECHNIQUE: Multiplanar and multisequence MR images of the brain were obtained without intravenous con trast. Comparison: Comparison is made to MRI brain 12/19/2014 FINDINGS: No abnormal restricted diffusion is identified. The white matter is unremarkable. The ventricular sys tem is normal in appearance. No extra axial fluid collections are seen. There are no masses, mass eff ect, or midline shift. The corpus callosum, pituitary gland, and cerebellar tonsils appear grossly u nremarkable. Flow voids of the major intracranial arterial vessels are identified. Soft tissue thickening of the l eft frontal, ethmoid, and maxillary sinuses noted. IMPRESSION: Left sinus disease. Otherwise no acute abnormality. ACT 112: Negative or not required by law. Electronically signed by: Pravin Aguirre M.D. 06/13/2021 5:43 PM
[2021-06-13] MEDS: MONTELUKAST SODIUM 10 MG TABLET PO SCH (20:15)
--- NOTE | 2021-06-13 23:19 | Electrocardiogram Report ---
Test Reason : Blood Pressure : / mmHG Vent. Rate : 064 BPM Atrial Rate : 064 BPM P-R Int : 152 ms QRS Dur : 076 ms QT Int : 418 ms P-R-T Axes : 063 -63 085 degrees QTc Int : 431 ms Normal sinus rhythm with sinus arrhythmia Left axis deviation T wave abnormality, consider anterior ischemia Abnormal ECG When compared with ECG of 12-JUN-2021 01:05, No significant change Confirmed by Clarence Matthews ([id number]) on 06/13/2021 11:18:45 PM Referred By: REFERRED SELF Confirmed By:Clarence Matthews
[2021-06-14] MEDS: methylPREDNISolone 40 MG in SYRINGE 0 ML IV SCH (04:58)
[2021-06-14] MEDS: LEVOTHYROXINE SODIUM 150 MCG TABLET PO SCH (04:59)
--- NOTE | 2021-06-14 05:35 | Electrocardiogram Report ---
Test Reason : Blood Pressure : / mmHG Vent. Rate : 076 BPM Atrial Rate : 076 BPM P-R Int : 144 ms QRS Dur : 074 ms QT Int : 412 ms P-R-T Axes : 076 -61 078 degrees QTc Int : 463 ms Normal sinus rhythm Left axis deviation T wave abnormality, consider anterior ischemia Prolonged QT Abnormal ECG When compared with ECG of 12-JUN-2021 14:05, No significant change was found Confirmed by Clarence Matthews ([id number]) on 06/14/2021 5:35:24 AM Referred By: REFERRED SELF Confirmed By:Clarence Matthews
[2021-06-14] MEDS: ALBUT/IPRATROP 3MG/0.5MG NEB 3 ML VIAL NEB SCH (07:51)
[2021-06-14 07:57] LABS: Basophils # (auto) 0.01 K/uL (0-0.2); Basophils % (auto) 0.1 %; Eosinophils # (auto) 0.03 K/uL (0-0.5); Eosinophils % (auto) 0.2 %; Hematocrit (blood only) 45.7 % (37-47); Hemoglobin 14.4 g/dL (12.0-16.0); Immature Granulocytes # (auto) 0.05 K/uL (0.00-0.02); Immature Granulocytes % (auto) 0.3 %; Lymphocytes # (auto) 1.31 K/uL (1.2-3.4); Lymphocytes % (auto) 7.1 %; Mean Corpuscular Hgb Conc 31.5 g/dL (32-36); Mean Corpuscular Volume 88.9 fL (80-100); Mean Platelet Volume 9.6 fL (7.4-10.4); Monocytes # (auto) 0.63 K/uL (0.11-0.59); Monocytes % (auto) 3.4 %; Neutrophils # (auto) 16.34 K/uL (1.4-6.5); Neutrophils % (auto) 88.9 %; Platelet Count 376 K/uL (130-400); RDW Coefficient of Variation 14.3 % (11.5-14.5); RDW Standard Deviation 46.8 fL (36.4-46.3); Red Blood Count 5.14 M/uL (4.2-5.4); White Blood Count 18.37 K/uL (4.8-10.8)
[2021-06-14] MEDS: AMPHETAMINE ASP/SULF/DEXTRAMPH 20 MG TAB PO SCH (08:18)
[2021-06-14] MEDS: AMOXICILLIN/CLAVULANATE 875 MG TAB PO SCH ×2 (08:19→17:41)
[2021-06-14] MEDS: NICOTINE 14 MG/24 HR PATCH TD SCH (08:19)
[2021-06-14] MEDS: ENOXAPARIN INJ 40 MG/0.4 ML SYR SQ SCH (08:21)
[2021-06-14 08:26] LABS: BUN Creatinine Ratio 17.8 (10-20); Calcium 10.3 mg/dl (8.5-10.1); Creatinine Clr Calc Pharmacy 72.3 ml/min; Est GFR (African American) 96.9 ml/min; Est GFR (Non-African American) 83.6 ml/min; Magnesium 2.5 mg/dl (1.8-2.4); Potassium 4.6 mmol/L (3.5-5.1)
[2021-06-14 08:27] LABS: Phosphorus 1.8 mg/dl (2.5-4.9)
[2021-06-14] MEDS ORDERED: HYDROmorphone INJ 0.5 MG/0.5 ML SYR IV STA (08:33)
[2021-06-14] MEDS ORDERED: KETOROLAC TROMETHAMINE 15 MG/ML VIAL IV PRN (08:33)
[2021-06-14] MEDS ORDERED: ALBUT/IPRATROP 3MG/0.5MG NEB 3 ML VIAL NEB PRN (08:33)
[2021-06-14] MEDS ORDERED: SODIUM PHOSPHATE 3 MMOL/1 ML 5 ML VIAL IV ONE (11:28)
[2021-06-14] MEDS ORDERED: SODIUM PHOSPHATE 30 MMOL in SODIUM CHLORIDE 0.9% 500 ML IV ONE (11:30)
--- NOTE | 2021-06-14 11:52 | Neurology Consultation ---
Date of Consultation June 14, 2021 Assessment & Plan (1) Asthma exacerbation: 1. treament per primary team (2) Status migrainosus: 1. MRI brain- no acute findings- was not done with contrast to rule out meningial enhancement 2. depakote 500 mg IV may repeat in 12 hours- 3. smoke cessation recommended 4. stroke family history of aneurysm - if not done in the recent past would CTA head neck 5. would not treat migraine with narcotics 6. already on gabapentin 300 mg TID for back pain- not taking consistently consider 300 mg once daily 7. Effexor new start in April not on in hospital, constantly filling ativan, buspar, butalbital, gabapentin 8. restart Effexor ER 150 mg daily 9. Buspar 15 mg is not on patient list but on out patient med list. - can cause headache 10. may need psychiatry to review medication list (3) Tobacco use: 1. smoking cessation strongly urged. Supervising Physician Co-Signing Physician Notes I have seen and discussed above patient with Dr Betsey Maddox, neurology Pt seen and examined, hx reviewed. Pt with chronic migraine with escalation over last 2 months such that 2/week. Admitted for sob, cough.wt loss headache increased since admission. Worse with cough. pt has not had effexor restarted, effexor withdrawal can cause headache. pt using fiorecet prn, but indicates she does so rarely. If inaccurate could have rebound headaches related to its use and with relative withdrawal. Labs reviewed, TSH increased. there can be headache associated with hypothyroidism. mri reviewed. exm notable for pt appearing mildy unwell, neck supple.no sinue tenderness no papilledema, no focal weakness, reflex asymmetry. Imp increased headaches in migraineur, multiple factors could be in play including headache with viral illness, hypothyroidism, effexor withdrawal, possible rebound. agree with mgt as above, CTA, fmh intracranial aneurysm. current headache gradual onset, would not be rel ated to aneurysm Depakote iv, take triptans if helpful. start gabapentin regularly.restart effexor. Avoid fiorecet bc of tendency to cause rebound. tx hypothyroidism. will follow with you. md Fanny History of Present Illness Reason for Consultation: status migrainosus Requesting Physician: Alysa García DO Attending Physician: Alysa García DO History of Present Illness Elsi is a 55 year old female with PMH- hypothyroidism, asthma, GERD, migraine, depression, generalized anxiety disorder, ADHD who presented to [facility] 06/13/2021 with a worsening cough, SOB associated with chest tightness over the past 10 days. She has been using her rescue inhaler more frequently than she should. She is also having wheezing for about 10 days alsol. Cough is nonproductive. She admits to having nausea but denies any vomiting. she is also having migraine headaches which she feels bandlike sensation which improves with pain medication. She was also recently started on Augmentin for sinus infection. she was also evaluated in the ED few days prior for vaginal bleed. She has been homeless for the last couple of years.she had a weight loss of about 30 pounds in last 2 months but denies any loss of appetite. She continues to smoke about half ppd. She has had a migraine which is a 7/10 -9/10. she was given Imitrex which did help most of the night but in the am it was a 9/10. She was given dilaudid which only helped for about 1 hour. In the past she has used Fioricet, Replax, steroids, Topamax, gabapentin. the migraines are pounding and currently at a 7/10. she thinks it was triggered by coughing and her ongoing sinus problems. She recently lost her mother to covid and she becomes teary eyed when talking about it. Her mother had aneurysms of brain. denies CP, SOB, abdominal pain, one sided weakness, numbness tingling, N, V. Allergies Allergy/AdvReac Type Severity Reaction Status Date / Time latex Allergy Unknown Verified 05/15/19 10:20 Bactrim AdvReac Unknown N/V, Verified 08/25/16 06:19 DIZZINESS Cipro AdvReac Unknown N/V, Verified 08/25/16 06:19 DIZZINESS ciprofloxacin AdvReac Unknown N/V, Verified 05/15/19 10:20 DIZZINESS morphine AdvReac Unknown HEADACHES Verified 05/15/19 10:20 oxycodone AdvReac Unknown nausea and Verified 05/15/19 10:20 vomiting sulfamethoxazole AdvReac Unknown N/V, Verified 05/15/19 10:20 DIZZINESS trimethoprim AdvReac Unknown N/V, Verified 05/15/19 10:20 DIZZINESS Home Medications Medication Instructions Recorded Confirmed Type albuterol sulfate 90 mcg/actuation 2 puff INHALATION Q6 PRN 05/15/19 06/12/21 History aerosol inhaler [id number]-[id number] 1 tab PO Q6 PRN 05/15/19 06/12/21 History 50 mg-325 mg-40 mg tablet dextroamphetamine-amphetamine 20 20 mg PO BID 05/15/19 06/12/21 History mg tablet gabapentin 300 mg capsule 300 mg PO TID PRN 05/15/19 06/12/21 History levothyroxine 150 mcg tablet 150 mcg PO QAM 05/15/19 06/12/21 History lorazepam 1 mg tablet 1 mg PO TID PRN 05/15/19 06/12/21 History flunisolide 25 mcg (0.025 %) nasal 2 spray INTRANASAL BID PRN 05/16/19 06/12/21 History spray mometasone-formoterol HFA 100 2 puff INHALATION BID 05/16/19 06/12/21 History mcg-5 mcg/actuation aerosol inhaler (Dulera) montelukast 10 mg tablet 10 mg PO PM 05/16/19 06/12/21 History (Singulair) amoxicillin 875 mg-potassium 1 tab PO Q12H 10 Days #20 tab 06/08/21 06/12/21 Rx clavulanate 125 mg tablet (Augmentin) buspirone 15 mg tablet 15 mg PO BID 06/14/21 06/14/21 History venlafaxine 150 mg 150 mg PO DAILY 06/14/21 06/14/21 History capsule,extended release 24 hr Patient History Medical History ADHD (attention deficit hyperactivity disorder) Anxiety Asthma, intermittent Chronic sinusitis Depression GERD (gastroesophageal reflux disease) Hypothyroidism ITP (idiopathic thrombocytopenic purpura) Migraine Seizure disorder, simple partial Tobacco use Now vaping Surgical History History of back surgery S/P sinus surgery S/P tonsillectomy and adenoidectomy Family History Other Asthma No significant family history Thyroid disorder Social History Smoking Status: Current every day smoker Tobacco Type: Cigarettes Cigarettes Per Day: 1/2 ppd; Second Hand Exposure: No; Do You Dip or Chew Tobacco: No; Tobacco Cessation Education Requested by Patient: No Hx Alcohol Use: No Hx Substance Use: No Preferred Language: Iraqi Communication Ability: Effective Certified Executive Chef Required: No Beliefs That Will Affect Care: None marital status: Current Living Situation: Alone Other Information That Helps Us Care for You: No Feels Safe at Home: Yes Safety Concerns: Feels Safe At This Time Assistive Devices: None Assistive Devices Comment: Reading glasses Review of Systems Review of Systems: All systems reviewed & are unremarkable except as noted in HPI & below Physical Exam Physical Exam: Physical Exam: Constitutional: appearance nourished, thin Ears, Nose, Mouth and Throat: mucous membranes moist, no injection and skin normal, eyes normal Cardiovascular: normal S-1 and S-2 and regular rate and rhythm Respiratory: course breath sounds LLL Musculoskeletal: no peripheral edema and good distal pulses Skin: no stigmata of neurocutaneous disease noted and normal and intact Eyes: extraocular muscles intact (EOMI) and pupils equal, round and reactive to light (PERRL), miotic NEUROLOGIC EXAMINATION: Mental status: Alert and interactive Oriented to full date and location Oriented to person Speech fluent with no evidence of aphasia Cranial Nerves smile eye brow raise symmetric Reflexes: Deep tendon reflexes were symmetrical and graded 2/5. Sensory: intact to light cool vibration Coordination: finger to nose Gait/Stance: Posture normal. lying in bed Motor: Negative for pronator drift of out stretched arms with eyes closed. Strength: biceps triceps hand ironing pleater 5/5 bilaterally hip flex planter/patellar flex ext 5/5 Results & Data ([facility]) Vital Signs (Past 12 Hours) Vital Signs Temp Pulse Pulse Pulse Resp BP BP 06/14/21 07:52 68 16 06/14/21 07:35 36.5 C 68 16 118/76 06/14/21 07:00 59 L 06/14/21 04:00 37.0 C 63 18 124/72 Pulse Ox 06/14/21 07:52 95 06/14/21 07:35 93 06/14/21 07:00 06/14/21 04:00 93 Laboratory Results Abnormal lab results 06/14/21 06/14/21 Range/Units 07:08 07:08 WBC 18.37 H (4.8-10.8) K/uL MCHC 31.5 L (32-36) g/dL RDW Std Deviation 46.8 H (36.4-46.3) fL Neut # (Auto) 16.34 H (1.4-6.5) K/uL [place] # (Auto) 0.63 H (0.11-0.59) K/uL Immature Gran # (Auto) 0.05 H (0.00-0.02) K/uL Glucose 130 H (70-99) mg/dl Calcium 10.3 H (8.5-10.1) mg/dl Phosphorus 1.8 L (2.5-4.9) mg/dl Magnesium 2.5 H (1.8-2.4) mg/dl Diagnostic Findings MRI brain-Left sinus disease. Otherwise no acute abnormality. CXR-No acute cardiopulmonary disease. (1) Asthma exacerbation Asthma persistence: unspecified Asthma severity: moderate Qualified Code(s): J45.901 - Unspecified asthma with (acute) exacerbation
[2021-06-14] MEDS: predniSONE 20 MG TAB PO SCH (12:18)
[2021-06-14] MEDS: LORazepam 1 MG TAB PO PRN ×2 (12:18→20:36)
[2021-06-14] MEDS ORDERED: PSEUDOEPHEDRINE HCL 30 MG TAB PO STA (12:30)
--- NOTE | 2021-06-14 16:13 | Hospitalist Progress Note ---
Date of Service June 14, 2021 Assessment & Plan (1) Asthma exacerbation: Plan: Acute Asthma Exacerbation, cont steroids, bronchodilators PRN, CXR revealed no acute pulmonary disease. Oxygen being given but uncertain if this is truly needed. Two step evaluation recommended prior to discharge. Continue Augmentin which was recently started for sinusitis. Continue Singulair per home regimen. (2) Status migrainosus: Plan: Takes fioricet as abortive therapy at home, doesn't follow with neurology regularly. Trials of fioricet, complex vitamin B (riboflavin not on formulary), gabapentin 300mg, Toradol this am unsuccessful. OMT then provided, including direct muscle energy techniques, suboccipital inhibition, craniosacral therapy. Patient asked for pain medication one hour later. Provided Imitrex and naproxen together. Continue IVF, cont to hydrate. (3) Somatic dysfunction of cervical region: Plan: OMT treatment applied as above in an effort to improve movement in the tissues and provide relief for her headache. (4) Sinusitis: Plan: Complete Augmentin regimen started as outpatient. Sinus disease is related to migraines in past per patient. (5) Leukocytosis: Plan: Likely related to steroid use. Afebrile and doesn't appear to have an acute infection. Ongoing augmentin started as outpatient for recent sinusitis. (6) Hypothyroidism: Plan: Cont Synthroid 150mcg daily per home regimen. Follow-up closely with outpatient provider for TFTs monthly. Per outpatient record review, she was noncompliant with Synthroid last year resulting in a TSH and profound hypothyroid state. She was then compliant and recently found to have symptomatic hyperthyroidism with an undetectable TSH at OSH. For this reason she stopped her Synthroid completely and now on admission here has a TSH 23. 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 Continuing this now and will discuss dosing with her PCP as 150 may just be too much. Noted patient reports 30 lb weight loss in last couple of months, possibly as a result of her compliance with Synthroid. (7) ADHD: Plan: On Adderall 20mg BID, this is a terrible drug for headaches. She is notably also taking Lorazepam 1mg up to three times daily and fioricet. Decreasing Adderall to 20mg once daily. (8) Depression: Plan: Per my review of her [facility] outpatient records, she is taking Buspar, Mobic, Effexor regularly which she is not taking here. Will discuss with her in am and restart if she is taking these. She also has an emotional support animal that she would like to bring into the hospital. Will let nursing staff know this to discuss logistics. Mutliple ongoing stressors are present for this patient including her living situation which she is currently in a motel and living here and out of her car, recently lost her mother to covid 6 months ago and dealing with the estate, etc. (9) Tobacco use: Plan: vaping. Nicotine patch provided. Strongly encouraged not to vape and educated about the dangers of this habit including vaping induced lung injury. (10) DVT prophylaxis: Plan: Lovenox Full Code Dispo-uncertain, pending resolution of migraine and improvement in breathing. If no improvement in headache will consider formal neurology consultation to assist with management. Alysa García DO [facility] and [facility]tic[facility]ated Discharge Date Admission Date: June 13, 2021 Subjective 55 yo F admitted with acute SOB and severe ongoing headache. Known chronic sinus disease. ongoing headache, requesting pain meds multiple alternatives to narcotics offered this am that are unsuccessful in controlling her headache performed OMT on her at bedside after verbal consent for procedure was obtained. 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 denies other issues Review of Systems Review of Systems: All systems were reviewed and negative except as indicated in subjective above. Physical Exam Physical Exam: CONSTITUTIONAL: WNWD, vitals as above, NAD EYES: normal conjunctivae, no scleral icterus, ENT: external ear and nose normal, MMM NECK: trachea midline RESPIRATORY: clear to auscultation bilaterally, no crackles, rales or wheezes, normal respiratory effort CARDIOVASCULAR: regular rate and rhythm, S1 and 2 heard without murmurs, gallops or rubs, no JVD, no peripheral edema GASTROINTESTINAL: soft, nontender, ND, no guarding MUSCULOSKELETAL: strength 5/5 throughout, head is normocephalic and atraumatic The patient was examined in the supine position only, as she had severe pain in her head. Significant positive findings are as follows: There is a tight band of cervical paraspinal tissue leading into the trapezius musculature and fascia bilaterally. There is a mid cervical restriction of motion which was noted with restricted rotation to the right. Direct muscle energy techniques were applied to this area including direct application of pressure with an improvement in the movement of tissue and fascia after application. Additionally, suboccipital inhibition was performed with a 90 second hold. Fascial tissue was noted to relax and release during this time. Craniosacral therapy was then applied with fourth ventricle compression technique for approximately 2-3 minutes. A reassessment of the tissues revealed them to be less ropy and with more movement. No HVLA techniques were applied during this session. SKIN: warm and dry NEUROLOGIC: No facial palsy, no dysarthria. CN 2-12 grossly intact, no sensory deficit, normal cognition, normal speech, no tremor, no gross focal deficits. PSYCHIATRIC: alert cooperative and oriented to person, place and time. Results & Data Results & Data ([facility]) Vital Signs (Past 12 Hours) Vital Signs Temp Pulse Pulse Pulse Resp BP Pulse Ox 06/14/21 15:33 36.6 C 80 16 132/84 90 06/14/21 15:00 75 06/14/21 11:55 36.7 C 62 18 130/75 94 06/14/21 07:52 68 16 95 06/14/21 07:35 36.5 C 68 16 118/76 93 06/14/21 07:00 59 L Laboratory Results Short CBC 06/14/21 Range/Units 07:08 WBC 18.37 H (4.8-10.8) K/uL Hgb 14.4 (12.0-16.0) g/dL Hct 45.7 (37-47) % Plt Count 376 (130-400) K/uL BMP 06/14/21 07:08 Sodium 138 Potassium 4.6 Chloride 103 Carbon Dioxide 30 BUN 14 Creatinine 0.80 Glucose 130 H Calcium 10.3 H Medications Administered Current Inpatient Medications Acetaminophen (Acetaminophen 325 Mg Tab) 650 mg PO Q4H PRN PRN Reason: pain/fever Stop: 07/12/21 19:05 Last Admin: 06/13/21 05:03 Dose: 650 mg Documented by: Acetaminophen/Butalbital/Caffeine (Butalbital/Acetamin/Caffeine Tab) 1 tab PO Q6H PRN PRN Reason: Migraine Headache Stop: 07/12/21 19:05 Last Admin: 06/13/21 05:14 Dose: 1 tab Documented by: Albuterol (Albut/Ipratrop 3mg/0.5mg Neb 3 Ml Vial) 3 ml NEB QIDR PRN PRN Reason: SOB/wheezing Stop: 07/12/21 19:05 Amoxicillin/Clavulanate Potassium (Amoxicillin/Clavulanate 875 Mg Tab) 1 tab PO BIDM [facility]; Protocol Stop: 06/19/21 19:59 Last Admin: 06/14/21 08:19 Dose: 1 tab Documented by: Amphetamine/Dextroamphetamine (Amphetamine Asp/Sulf/Dextramph 20 Mg Tab) 20 mg PO DAILY [facility] Stop: 06/28/21 08:59 Last Admin: 06/14/21 08:18 Dose: 20 mg Documented by: Enoxaparin Sodium (Enoxaparin Inj 40 Mg/0.4 Ml Syr) 40 mg SQ QAM [facility] Stop: 07/12/21 19:59 Last Admin: 06/14/21 08:21 Dose: Not Given Documented by: Fluticasone/Vilanterol (Fluticasone/Vilanterol 200/25mcg 14 Puffs/Inhaler) 1 puffs INH [facility]; Protocol Stop: 07/12/21 20:59 Last Admin: 06/13/21 20:14 Dose: 1 puffs Documented by: Gabapentin (Gabapentin 300 Mg Cap) 300 mg PO TID PRN PRN Reason: Pain Stop: 07/12/21 19:05 Last Admin: 06/12/21 20:55 Dose: 300 mg Documented by: Sodium Phosphate 30 mmol/ (Sodium Chloride) 510 mls @ 88 mls/hr IV ONE ONE Stop: 06/14/21 17:17 Last Admin: 06/14/21 12:18 Dose: 88 mls/hr Documented by: Ketorolac Tromethamine (Ketorolac Tromethamine 15 Mg/Ml Vial) 15 mg IV Q6H PRN PRN Reason: Pain/headache Stop: 06/19/21 08:32 Levothyroxine Sodium (Levothyroxine Sodium 125 Mcg Tablet) 125 mcg PO DAILYBB [facility] Stop: 07/15/21 06:29 Lorazepam (Lorazepam 1 Mg Tab) 1 mg PO TID PRN PRN Reason: Anxiety Stop: 07/12/21 19:24 Last Admin: 06/14/21 12:18 Dose: 1 mg Documented by: Miscellaneous (Remove Nicoderm Patch) 1 ea N/A DAILY@[id number] [facility] Stop: 07/12/21 19:58 Last Admin: 06/14/21 08:25 Dose: Not Given Documented by: Montelukast Sodium (Montelukast Sodium 10 Mg Tablet) 10 mg PO PM [facility] Stop: 07/12/21 20:59 Last Admin: 06/13/21 20:15 Dose: 10 mg Documented by: Nicotine (Nicotine 14 Mg/24 Hr Patch) 14 mg TD QAM [facility] Stop: 07/12/21 19:59 Last Admin: 06/14/21 08:19 Dose: 14 mg Documented by: Ondansetron HCl (Ondansetron Inj 2 Mg/Ml 2 Ml Vial) 4 mg IV Q6H PRN PRN Reason: Nausea Stop: 07/12/21 19:05 Last Admin: 06/13/21 06:25 Dose: 4 mg Documented by: Polyethylene Glycol (Polyethylene (Miralax) 17 Gm Pack) 17 gm PO DAILY PRN PRN Reason: Constipation Stop: 07/12/21 19:05 Prednisone (Prednisone 20 Mg Tab) 40 mg PO DAILY [facility] Stop: 07/14/21 10:59 Last Admin: 06/14/21 12:18 Dose: 40 mg Documented by: Pseudoephedrine HCl (Pseudoephedrine Hcl 30 Mg Tab) 60 mg PO Q6H PRN PRN Reason: congestion Stop: 07/14/21 18:29 (1) Asthma exacerbation Asthma persistence: unspecified Asthma severity: moderate Qualified Code(s): J45.901 - Unspecified asthma with (acute) exacerbation (2) Leukocytosis Leukocytosis type: unspecified Qualified Code(s): D72.829 - Elevated white blood cell count, unspecified (3) Sinusitis Chronicity: acute Recurrence: not specified as recurrent Sinusitis location: maxillary Qualified Code(s): J01.00 - Acute maxillary sinusitis, unspecified
[2021-06-14] MEDS ORDERED: SODIUM CHLORIDE 0.65% NA SOLN 45 ML (OCEAN) PRN (17:31)
[2021-06-14] MEDS ORDERED: VALPROATE SOD 500 MG in DEXTROSE 5% 50 ML IV ONE (18:00)
[2021-06-14] MEDS: VENLAFAXINE HCL XR 150 MG CAPXR PO SCH (18:07)
[2021-06-14] MEDS: FLUTICASONE PROPIONATE NA SPR 16 GM BTL SCH (18:08)
[2021-06-14] MEDS ORDERED: PSEUDOEPHEDRINE HCL 30 MG TAB PO PRN (18:30)
[2021-06-14] MEDS ORDERED: diphenhydrAMINE Capsule 25 MG CAP PO ONE (19:42)
[2021-06-14] MEDS: busPIRone 15 MG TAB PO SCH (20:27)
[2021-06-14] MEDS: MONTELUKAST SODIUM 10 MG TABLET PO SCH (20:28)
[2021-06-14] MEDS: FLUTICASONE/VILANTEROL 200/25MCG 14 PUFFS/INHALER INH SCH (20:28)
[2021-06-15] MEDS ORDERED: LEVOTHYROXINE SODIUM 125 MCG TABLET PO SCH (06:30)
[2021-06-15] MEDS: AMOXICILLIN/CLAVULANATE 875 MG TAB PO SCH (08:04)
[2021-06-15] MEDS: VENLAFAXINE HCL XR 150 MG CAPXR PO SCH (08:05)
[2021-06-15] MEDS: predniSONE 20 MG TAB PO SCH (08:06)
[2021-06-15] MEDS: busPIRone 15 MG TAB PO SCH (08:06)
[2021-06-15] MEDS: ENOXAPARIN INJ 40 MG/0.4 ML SYR SQ SCH ×2 (08:07→08:18)
[2021-06-15] MEDS: FLUTICASONE PROPIONATE NA SPR 16 GM BTL SCH (08:10)
[2021-06-15] MEDS: NICOTINE 14 MG/24 HR PATCH TD SCH (08:13)
[2021-06-15] MEDS: AMPHETAMINE ASP/SULF/DEXTRAMPH 20 MG TAB PO SCH (08:16)
[2021-06-15 09:00] LABS: Hematocrit (blood only) 46.6 % (37-47); Hemoglobin 15.3 g/dL (12.0-16.0); Mean Corpuscular Hemoglobin 28.5 pg (25-34); Mean Corpuscular Hgb Conc 32.8 g/dL (32-36); Mean Corpuscular Volume 86.8 fL (80-100); Platelet Count 391 K/uL (130-400); RDW Standard Deviation 44.9 fL (36.4-46.3); Red Blood Count 5.37 M/uL (4.2-5.4); White Blood Count 16.77 K/uL (4.8-10.8)
[2021-06-15 09:26] LABS: BUN Creatinine Ratio 22.4 (10-20); Calcium 9.8 mg/dl (8.5-10.1); Creatinine Clr Calc Pharmacy 63.6 ml/min; Est GFR (African American) 82.9 ml/min; Est GFR (Non-African American) 71.5 ml/min; Magnesium 2.3 mg/dl (1.8-2.4); Phosphorus 1.6 mg/dl (2.5-4.9); Potassium 3.6 mmol/L (3.5-5.1)
[2021-06-15] MEDS ORDERED: SODIUM PHOSPHATE 3 MMOL/1 ML 5 ML VIAL IV ONE (10:47)
[2021-06-15] MEDS ORDERED: SODIUM PHOSPHATE 30 MMOL in SODIUM CHLORIDE 0.9% 500 ML IV ONE (11:00)
--- NOTE | 2021-06-15 11:20 | Discharge Summary ---
Date of Service June 15, 2021 Admission HPI Per Admitting Provider Patient is a 55-year-old female with history of hypothyroidism, asthma, GERD, migraine, depression, generalized anxiety disorder, ADHD and other medical problems presents with history of worsening cough, shortness of breath associated with chest tightness since 10 days duration. Patient states that she has been using her rescue inhaler more frequently than she should. She also states having wheezing since about 10 days as well. Cough is nonproductive. She admits to having nausea but denies any vomiting. Also states having migraine headaches which she feels bandlike sensation which improves with pain medication. She reports that she was recently started on Augmentin for sinus infection. Patient is a poor historian. She was evaluated in ED few days ago for vaginal bleed. She admits to being homeless for the last couple of years. Also states having lost about 30 pounds in last 2 months but denies any loss of appetite. Denies any history of palpitations, dizziness, pedal edema, hemoptysis, fever, chills, change in vision, abdominal pain, blood in stools, diarrhea, dysuria, hematuria. She admits to continue to smoke about half pack per day currently. Admission Exam Per Admitting Provider Physical Exam: Vitals signs as noted above General Appearance:Moderately built and nourished, no apparent distress Head: normocephalic, Atraumatic Eyes: normal inspection, EOMI Neck: supple, Trachea midline Respiratory/Chest: Decreased breath sounds, B/L + rhonchi, wheezes, No accessory muscle use Cardiovascular: S1, S2, No murmur Abdomen/GI:Soft, Non tender, Bowel sounds present Extremities/Musculoskeletal:normal inspection, no edema Neurologic/Psych:AAOX3, grossly no focal neurological deficits Skin: normal color, warm Principal Diagnosis Asthma exacerbation Sinus disease Status migrainosus Hypophosphatemia Hypothyroidism Discharge Exam patient declined exam ambulating independently, mentating normally, argumentative angry disposition, no work of breathing noted off oxygen and oxygen saturation was normal at rest. Patient declined a two step evaluation. Patient declined phosphate replacement which was also recommended. Discharge Data Allergies Allergy/AdvReac Type Severity Reaction Status Date / Time latex Allergy Unknown Verified 05/15/19 10:20 Bactrim AdvReac Unknown N/V, Verified 08/25/16 06:19 DIZZINESS Cipro AdvReac Unknown N/V, Verified 08/25/16 06:19 DIZZINESS ciprofloxacin AdvReac Unknown N/V, Verified 05/15/19 10:20 DIZZINESS morphine AdvReac Unknown HEADACHES Verified 05/15/19 10:20 oxycodone AdvReac Unknown nausea and Verified 05/15/19 10:20 vomiting sulfamethoxazole AdvReac Unknown N/V, Verified 05/15/19 10:20 DIZZINESS trimethoprim AdvReac Unknown N/V, Verified 05/15/19 10:20 DIZZINESS Consultations 06/12/21 16:00 ED Decision to Admit Stat 06/14/21 08:25 Consult Neurology Routine Ordered Studies Laboratory Results WBC 16.77 K/uL (4.8-10.8) H 06/15/21 08:50 RBC 5.37 M/uL (4.2-5.4) 06/15/21 08:50 Hgb 15.3 g/dL (12.0-16.0) 06/15/21 08:50 Hct 46.6 % (37-47) 06/15/21 08:50 MCV 86.8 fL (80-100) 06/15/21 08:50 MCH 28.5 pg (25-34) 06/15/21 08:50 MCHC 32.8 g/dL (32-36) 06/15/21 08:50 RDW Std Deviation 44.9 fL (36.4-46.3) 06/15/21 08:50 RDW Coeff of Johanna 14.0 % (11.5-14.5) 06/15/21 08:50 Plt Count 391 K/uL (130-400) 06/15/21 08:50 MPV 9.0 fL (7.4-10.4) 06/15/21 08:50 Immature Gran % (Auto) 0.3 % 06/14/21 07:08 Neut % (Auto) 88.9 % 06/14/21 07:08 Lymph % (Auto) 7.1 % 06/14/21 07:08 [place] % (Auto) 3.4 % 06/14/21 07:08 Eos % (Auto) 0.2 % 06/14/21 07:08 Baso % (Auto) 0.1 % 06/14/21 07:08 Neut # (Auto) 16.34 K/uL (1.4-6.5) H 06/14/21 07:08 Lymph # (Auto) 1.31 K/uL (1.2-3.4) 06/14/21 07:08 [place] # (Auto) 0.63 K/uL (0.11-0.59) H 06/14/21 07:08 Eos # (Auto) 0.03 K/uL (0-0.5) 06/14/21 07:08 Baso # (Auto) 0.01 K/uL (0-0.2) 06/14/21 07:08 Immature Gran # (Auto) 0.05 K/uL (0.00-0.02) H 06/14/21 07:08 PT 9.9 Seconds (9.0-12.0) 06/12/21 Unknown INR 1.0 (0.9-1.1) 06/12/21 Unknown APTT 25.9 Seconds (21.0-31.0) 06/12/21 Unknown PTT Ratio 1.0 06/12/21 Unknown Sodium 136 mmol/L (136-145) 06/15/21 08:50 Potassium 3.6 mmol/L (3.5-5.1) D 06/15/21 08:50 Chloride 99 mmol/L (98-107) 06/15/21 08:50 Carbon Dioxide 30 mmol/L (21-32) 06/15/21 08:50 Anion Gap 7.0 (3-11) 06/15/21 08:50 BUN 20 mg/dl (7-18) H 06/15/21 08:50 Creatinine 0.91 mg/dl (0.6-1.2) 06/15/21 08:50 Est Cr Clr Drug Dosing 63.6 ml/min 06/15/21 08:50 Est GFR ( Amer) 82.9 ml/min 06/15/21 08:50 Est GFR (Non-Af Amer) 71.5 ml/min 06/15/21 08:50 BUN/Creatinine Ratio 22.4 (10-20) H 06/15/21 08:50 Glucose 160 mg/dl (70-99) H 06/15/21 08:50 Lactate 3.8 mmol/L (0.4-2.0) H* 06/12/21 19:11 Calcium 9.8 mg/dl (8.5-10.1) 06/15/21 08:50 Phosphorus 1.6 mg/dl (2.5-4.9) L 06/15/21 08:50 Magnesium 2.3 mg/dl (1.8-2.4) 06/15/21 08:50 Total Bilirubin 0.3 mg/dl (0.2-1) 06/12/21 13:00 AST 45 U/L (15-37) H 06/12/21 13:57 ALT 60 U/L (12-78) 06/12/21 13:00 Alkaline Phosphatase 107 U/L (45-117) 06/12/21 13:00 Troponin I < 0.015 ng/ml (0-0.045) 06/12/21 13:00 Total Protein 8.2 gm/dl (6.4-8.2) 06/12/21 13:00 Albumin 3.8 gm/dl (3.4-5.0) 06/12/21 13:00 Globulin 4.4 gm/dl (2.5-4.0) H 06/12/21 13:00 Albumin/Globulin Ratio 0.9 (0.9-2) 06/12/21 13:00 Procalcitonin < 0.05 ng/ml (0-0.5) 06/12/21 19:14 TSH 23.500 uIu/ml (0.300-4.500) H 06/13/21 06:04 Free T4 0.21 ng/dl (0.8-1.6) L 06/13/21 06:04 Urine Color Yellow 06/12/21 23:05 Urine Appearance Clear (Clear) 06/12/21 23:05 Urine pH 5.0 (4.5-7.5) 06/12/21 23:05 Ur Specific [place] 1.020 (1.000-1.030) 06/12/21 23:05 Urine Protein Negative (Negative) 06/12/21 23:05 Urine Glucose (UA) Trace (Negative) H 06/12/21 23:05 Urine Ketones Negative (Negative) 06/12/21 23:05 Urine Blood Negative (Negative) 06/12/21 23:05 Urine Nitrite Negative (Negative) 06/12/21 23:05 Urine Bilirubin Negative (Negative) 06/12/21 23:05 Urine Urobilinogen Negative (Negative) 06/12/21 23:05 Ur Leukocyte Esterase Negative (Negative) 06/12/21 23:05 Valproic Acid 17 mcg/ml (50-100) L 06/14/21 18:26 COVID-19 Eval Order Covid19 at [facility] 06/12/21 14:13 SARS-CoV-2 (PCR) NEGATIVE (Negative) 06/12/21 14:13 Impressions Chest X-Ray 06/12/21 12:11 XR chest 1V portable CLINICAL HISTORY: SOB. COMPARISON STUDY: 06/10/2021 TECHNIQUE: 1 view of the chest FINDINGS: Single frontal view of the chest demonstrates the cardiomediastinal silhouette to be within normal limits. The lungs are clear of alveolar opacities. There is no evidence for pleural effusion. There is no evidence for vascular congestion. There is no acute osseous pathology. IMPRESSION: No acute cardiopulmonary disease. ACT 112: Negative or not required by law. Electronically signed by: Ghassan Nogueira M.D. 06/12/2021 1:23 PM Brain MRI 06/13/21 13:11 MR brain wo con CLINICAL HISTORY: severe headache TECHNIQUE: Multiplanar and multisequence MR images of the brain were obtained without intravenous contrast. Comparison: Comparison is made to MRI brain 12/19/2014 FINDINGS: No abnormal restricted diffusion is identified. The white matter is unremarkable. The ventricular system is normal in appearance. No extra axial fluid collections are seen. There are no masses, mass effect, or midline shift. The corpus callosum, pituitary gland, and cerebellar tonsils appear grossly unremarkable. Flow voids of the major intracranial arterial vessels are identified. Soft tissue thickening of the left frontal, ethmoid, and maxillary sinuses noted. IMPRESSION: Left sinus disease. Otherwise no acute abnormality. ACT 112: Negative or not required by law. Electronically signed by: Pravin Aguirre M.D. 06/13/2021 5:43 PM Hospital Course (1) Asthma exacerbation: 55 yo F smoker with h/o reported asthma presented with wheezing, increased SOB and chest tightness x 10 days. During this time she had already been seen and discharged from the [facility] ER twice and an OSH ER at least once. She had been given Augmentin for presumed sinus disease, which was continued. She had been given a prednisone taper. She was admitted as this was the third presentation, and was placed on IV steroids and scheduled nebulized bronchodilator therapy. Her wheezing resolved during her admission, however, she continued to utilize supplemental oxygen stating it made her feel better. Continue Singulair per home regimen. (2) Status migrainosus: This took over as one of the main resasons for hospitalization and her main issue during her stay. Typically, per her report and available records, she takes fioricet as abortive therapy at home. She doesn't follow with neurology regularly. She demanded dilaudid early during her stay which was denied until other more reasonable migraine therapies could be trialed. Trials of fioricet, complex vitamin B (riboflavin not on formulary), gabapentin 300mg, Toradol were unsuccessful. She seemed to have some relief when Imitrex was combined with Naproxen but this didn't last. Osteopathic manipulative therapy was provided including suboccipital inhibition, craniosacral therapy and some direct muscle energy techniques on trapezius and paraspinal cervical musculature. Ultimately dilaudid was trialed and was unsuccessful and neurology was consulted. Valproic acid was recommended which was given with again, no reported relief. (3) Leukocytosis: Likely related to steroid use. Afebrile and doesn't appear to have an acute infection. Ongoing augmentin started as outpatient for recent sinusitis. (4) Hypothyroidism: Per outpatient record review, she was noncompliant with Synthroid last year resulting in a TSH and profound hypothyroid state. She was then compliant and recently found to have symptomatic hyperthyroidism with an undetectable TSH at OSH. For this reason she stopped her Synthroid completely and now on admission here has a TSH 23. 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 Continuing this now and will discuss dosing with her PCP as 150 may just be too much. PCP and I decided on a lower dose which was provided to her at time of discharge. Noted patient reports 30 lb weight loss in last couple of months, likely a result of compliance with Synthroid. (5) ADHD: On Adderall 20mg BID, this is a terrible drug for headaches. She is notably also taking Lorazepam 1mg up to three times daily and fioricet. Decreasing Adderall to 20mg once daily. I tried to explain to her there were many meds that were competing, but this seemed to upset her further. (6) Depression: Per my review of her [facility] outpatient records, she is taking Buspar, Mobic, Effexor regularly which she is not taking here. After my discussion with her, she seemed to agree she was on this and stated her expectations that doctors should just know what she was taking by what was listed in record. These medications were restarted here and continued at discharge. (7) Tobacco use: vaping. Nicotine patch provided. Strongly encouraged smoking cessation. (8) Hypophosphatemia: Replacement given one day, however, the next day phos was still low and replacement was declined. Total Time Total Time Spent Total Time Spent (In Minutes): 60 Discharge Plan Discharge Items Patient Disposition: Home - Self-Care Reason For Visit: DYSPNEA Discharge Diagnosis: Asthma exacerbation Sinus disease Status migrainosus Hypophosphatemia Hypothyroidism Activity: Resume your previous activity Non-emergency contact: Primary Care Provider Call non-emergency contact if: you have any medication questions and your symptoms worsen Follow-up/Referrals: Mychal Da Silva MD [Primary Care Provider] - (Date & Time 06/21/2021 11:20 AM Provider Antionette Dash MD Department Family Practice [facility] ) Diet: Regular Addtl Attending Provider Instructions: Please take all medications as instructed on discharge list below. Your Synthroid has been decreased to 125mcg daily. Please follow-up with Dr. Da Silva in one week to ensure you are doing well after returning home. Thyroid function studies should be checked in 6-8 weeks with an adjustment in Synthroid dose as needed. It is recommended that you continue to follow-up with your physician for headache management and management of your chronic sinus disease. Your phosphate was found to be low during your hospital stay, which may be related to your thyroid issues as one possible explanation. Phosphate replacement was declined on day of discharge. Therefore, checking a phosphorus level with your PCP n follow-up would be recommended in case further replacement therapy is needed. It was a pleasure taking care of you! Please call if you have any questions or problems. You can reach a [facility] hospitalist on duty at [facility] 24 hours a day by calling [phone]. Take care of yourself. Alysa García, DO [facility] P[facility] Studies at Discharge: No Stand-Alone Forms: My [facility] Medications and DC Order Prescriptions: New levothyroxine [Synthroid] 125 mcg Tablet 125 mcg PO DAILYBB Qty: 30 RF: 0 prednisone 20 mg Tablet 20 mg PO DAILY Qty: 5 RF: 0 Continued [id number] 50-325-40 mg tablet 1 tab PO Q6 PRN (Reason: Migraine Headache) RF: 0 dextroamphetamine-amphetamine 20 mg tablet 20 mg PO BID RF: 0 gabapentin 300 mg capsule 300 mg PO TID PRN (Reason: Pain) RF: 0 lorazepam 1 mg tablet 1 mg PO TID PRN (Reason: Anxiety) RF: 0 albuterol sulfate 90 mcg/actuation HFA aerosol inhaler 2 puff inhalation Q6 PRN (Reason: Shortness Of Breath Or Wheezing) RF: 0 flunisolide 25 mcg (0.025 %) [place],Non-Aerosol 2 spray INTRANASAL BID PRN (Reason: Nasal Congestion) RF: 0 montelukast [Singulair] 10 mg Tablet 10 mg PO PM RF: 0 Dulera 100-5 mcg/actuation Hfa Aerosol Inhaler 2 puff INHALATION BID RF: 0 venlafaxine 150 mg capsule,extended release 24hr 150 mg PO DAILY RF: 0 buspirone 15 mg tablet 15 mg PO BID RF: 0 Discontinued levothyroxine 150 mcg tablet 150 mcg PO QAM RF: 0 Discharge Orders: Discharge Order (Routine); Ordered 06/15/21 Ordered By: Alysa García Admission Data Admit Date/Time: 06/13/21 22:13 Attending Provider: Alysa García Admit Provider: Jw Kwok Primary Care Provider: Mychal Da Silva Other Providers: Betsey Maddox Other Interventions: Discharge Summary Assessment (RN) Last Done: 06/15/21 11:29
== END 2021-06-15 12:58 | disposition home or self-care (01) | DRG 103 ==
LOC: ED 11:58 → EDINP 11:58 → SUATTDRO 16:59 → 2N 18:57